=== PATIENT | female | born 1950 | race Two or more races ===

== ENCOUNTER 2017-07-15 19:16 | Emergency (ER) | payer MEDICARE ==
[~2017-07-15] VITALS: Ht 154.9 cm; Wt 49.9 kg
[~2017-07-15 19:16] MED LIST: HYDR-4663 PO; LEVO500T21 PO; LEVO75TA6 PO; LOVA10TA2 PO; PRAV20TA3 PO; PREMPRO; SYNTHROID
[2017-07-15] MEDS ORDERED: SODIUM CHLORIDE 0.9% 1,000 ML IV ONE (22:06)
[2017-07-15 23:09] LABS: Basophils # (auto) 0 uL; Basophils % (auto) 0.7 % (0.0-2.0); CONDITION Y; Eosinophils # (auto) 0.2 uL; Eosinophils % (auto) 2.8 % (0.0-7.0); Hematocrit 37.4 % (36.0-46.0); Hemoglobin 12.7 g/dL (12.2-16.2); Lymphocytes # (auto) 2.5 uL; Lymphocytes % (auto) 41.8 % (10.0-50.0); Mean Corpuscular Hemoglobin 31.4 pg (28.0-32.0); Mean Corpuscular Hgb Conc. 33.9 g/dL (32.0-36.0); Mean Corpuscular Volume 92.7 fL (80.0-100.0); Mean Platelet Volume 9.3 fL (6.9-10.8); Monocytes # (auto) 0.5 uL; Neutrophils # (auto) 2.8 uL; Neutrophils % (auto) 46.7 % (37.0-80.0); Platelet Count (auto) 253 10^3/uL (140-450); Red Cell Distribution Width 14.7 % (11.8-14.3); White Blood Cell 6.1 10^3/uL (4.4-10.8)
[2017-07-15 23:26] LABS: Albumin 3.7 g/dL (3.4-5.0); BUN/Creatinine Ratio 35.3; Potassium 3.6 mmol/L (3.5-5.1)
[2017-07-15 23:29] LABS: Bilirubin, Total 0.7 mg/dL (0.2-1.0); Total Protein 6.7 g/dL (6.4-8.2)
[2017-07-16 04:00] VITALS: BP 132/60
== END 2017-07-16 05:05 | disposition home or self-care (01) ==
LOC: ER 19:23
DX: K44.9 Diaphragmatic hernia without obstruction or gangrene (principal); K57.30 Diverticulosis of large intestine without perforation or abscess without bleeding; F41.9 Anxiety disorder, unspecified; J45.909 Unspecified asthma, uncomplicated; E78.5 Hyperlipidemia, unspecified; E07.89 Other specified disorders of thyroid; Z90.49 Acquired absence of other specified parts of digestive tract; Z91.041 Radiographic dye allergy status
CPT/HCPCS: 36415; 74176; 80053; 83690; 85025; 93005; 96360; 96361; 99285; J7030

== ENCOUNTER 2019-03-30 18:22 | Emergency (ER) | payer MEDICARE ==
[~2019-03-30] VITALS: Ht 157.5 cm; Wt 52.2 kg
[~2019-03-30 18:22] MED LIST changes: -HYDR-4663 PO; +HYDR-4683 PO
[2019-03-30 20:25] LABS: Urine Amorphous Crystal MOD /hpf (None Seen); Urine Bacteria FEW /hpf (None Seen); Urine Blood Negative /uL (Negative); Urine Mucus FEW (None Seen); Urine Specific Gravity 1.034 (1.001-1.035); Urine WBC 1 /hpf (0 - 5)
[2019-03-30 22:37] LABS: Basophils # (auto) 0 uL; Basophils % (auto) 0.4 % (0.0-2.0); Eosinophils # (auto) 0 uL; Eosinophils % (auto) 0.6 % (0.0-7.0); Hematocrit 40.5 % (36.0-46.0); Hemoglobin 13.7 g/dL (12.2-16.2); Lymphocytes # (auto) 2.1 uL; Lymphocytes % (auto) 28.8 % (10.0-50.0); Mean Corpuscular Hemoglobin 31.6 pg (28.0-32.0); Mean Corpuscular Hgb Conc. 33.9 g/dL (32.0-36.0); Mean Corpuscular Volume 93.2 fL (80.0-100.0); Monocytes # (auto) 0.5 uL; Monocytes % (auto) 6.2 % (0.0-12.0); Neutrophils # (auto) 4.7 uL; Platelet Count (auto) 257 10^3/uL (140-450); Red Blood Cells 4.34 10^6/uL (4.0-5.20); Red Cell Distribution Width 13.6 % (11.8-14.3); White Blood Cell 7.4 10^3/uL (4.4-10.8)
[2019-03-30 22:53] LABS: Alanine Aminotransferase 24 U/L (13-56); Albumin 3.9 g/dL (3.4-5.0); Anion Gap 8 (5-15); Aspartate Aminotransferase 10 U/L (15-37); BUN/Creatinine Ratio 44.8; Blood Urea Nitrogen 26 mg/dL (7-18); Carbon Dioxide 26 mmol/L (21-32); Chloride 109 mmol/L (98-107); GFR African American 133 mL/min; GFR Non-African American 110 mL/min; Glucose 112 mg/dL (74-106); Potassium 3.8 mmol/L (3.5-5.1); Sodium 143 mmol/L (136-145)
[2019-03-30 22:55] LABS: Calcium 8.8 mg/dL (8.5-10.1)
[2019-03-30 22:58] LABS: Alkaline Phosphatase 91 U/L (45-117); Bilirubin, Total 0.6 mg/dL (0.2-1.0); Total Protein 7.4 g/dL (6.4-8.2)
[2019-03-31] MEDS ORDERED: MORPHINE SULF INJ 2 MG/ML SYRINGE 1ML IV ONE (02:00)
[2019-03-31] MEDS ORDERED: ONDANSETRON HCL 4 MG/2 ML VIAL IV ONE (02:00)
[2019-03-31] MEDS ORDERED: LORazepam 0.5 MG TAB PO ONE (02:35)
[2019-03-31 05:57] VITALS: BP 105/60
== END 2019-03-31 06:26 | disposition home or self-care (01) ==
LOC: ER 18:22
DX: R41.3 Other amnesia (principal); F41.9 Anxiety disorder, unspecified; K58.9 Irritable bowel syndrome, unspecified; R42 Dizziness and giddiness; J45.909 Unspecified asthma, uncomplicated; E78.5 Hyperlipidemia, unspecified; Z86.39 Personal history of other endocrine, nutritional and metabolic disease; Z90.49 Acquired absence of other specified parts of digestive tract; Z79.899 Other long term (current) drug therapy
CPT/HCPCS: 36415; 71046; 74176; 80053; 81001; 84484; 85025; 93005; 94761; 96374; 96375; 99284; J2270; J2405

== ENCOUNTER 2019-05-24 15:03 | Emergency (ER) | payer MEDICARE ==
[~2019-05-24] VITALS: Ht 152.4 cm; Wt 49.0 kg
[~2019-05-24 15:03] MED LIST changes: -HYDR-4683 PO; +HYDR-4833 PO
[2019-05-24 15:56] VITALS: BP 137/67
[2019-05-24] MEDS ORDERED: SODIUM CHLORIDE 0.9% 1,000 ML IV ONE (16:09)
[2019-05-24] MEDS ORDERED: HYDROcodone-ACET 5/325MG TAB PO ONE (16:15)
[2019-05-24 16:19] LABS: Urine WBC None Seen /hpf (0 - 5)
[2019-05-24 16:51] LABS: Alanine Aminotransferase 23 U/L (13-56); Albumin 3.8 g/dL (3.4-5.0); Anion Gap 9 (5-15); Aspartate Aminotransferase 13 U/L (15-37); BUN/Creatinine Ratio 35.2; Blood Urea Nitrogen 19 mg/dL (7-18); Calcium 8.8 mg/dL (8.5-10.1); Carbon Dioxide 25 mmol/L (21-32); Chloride 113 mmol/L (98-107); GFR African American 144 mL/min; GFR Non-African American 119 mL/min; Glucose 88 mg/dL (74-106); Magnesium 2.5 mg/dL (1.6-2.6); Potassium 3.8 mmol/L (3.5-5.1); Sodium 147 mmol/L (136-145)
[2019-05-24 16:56] LABS: Alkaline Phosphatase 98 U/L (45-117); Bilirubin, Total 0.9 mg/dL (0.2-1.0); Total Protein 6.9 g/dL (6.4-8.2)
[2019-05-24 16:59] LABS: Urine Bacteria NONE SEEN /hpf (None Seen); Urine Blood Negative /uL (Negative); Urine Mucus FEW (None Seen); Urine Specific Gravity 1.026 (1.001-1.035)
[2019-05-24 17:03] LABS: Basophils # (auto) 0 uL; Basophils % (auto) 0.7 % (0.0-2.0); Eosinophils # (auto) 0.1 uL; Eosinophils % (auto) 2.4 % (0.0-7.0); Hematocrit 39.5 % (36.0-46.0); Hemoglobin 13.3 g/dL (12.2-16.2); Lymphocytes # (auto) 2.1 uL; Lymphocytes % (auto) 37.5 % (10.0-50.0); Mean Corpuscular Hgb Conc. 33.7 g/dL (32.0-36.0); Mean Corpuscular Volume 91.8 fL (80.0-100.0); Monocytes # (auto) 0.3 uL; Monocytes % (auto) 6.2 % (0.0-12.0); Neutrophils # (auto) 2.9 uL; Neutrophils % (auto) 53.2 % (37.0-80.0); Nucleated Red Blood Cells % 0.1 %; Platelet Count (auto) 227 10^3/uL (140-450); White Blood Cell 5.5 10^3/uL (4.4-10.8)
== END 2019-05-24 18:51 | disposition home or self-care (01) ==
LOC: ER 15:03
DX: F41.9 Anxiety disorder, unspecified (principal); E78.5 Hyperlipidemia, unspecified; J45.909 Unspecified asthma, uncomplicated; Z91.041 Radiographic dye allergy status
CPT/HCPCS: 36415; 70450; 71046; 80053; 81001; 83735; 84484; 85025; 93005; 96360; 99284; J7030

== ENCOUNTER → 2021-05-05 | Outpatient (CLI) | payer MEDICARE ==
[~2021-05-05] MED LIST changes: +LEVO100T8 PO; -LEVO500T21 PO; +LEVO500T31 PO; -LEVO75TA6 PO
== END | disposition home or self-care (01) ==
LOC: LAB 06:45
PROVIDERS: ATTEND Physician Assistant
DX: N39.0 Urinary tract infection, site not specified (principal)
CPT/HCPCS: 87086

== ENCOUNTER 2021-06-18 11:02 | Inpatient (IN) | payer MEDICARE ==
[~2021-06-18] VITALS: Ht 160 cm; Wt 51.5 kg
[2021-06-18 11:38] LABS: Basophils # (auto) 0 10 ^3/uL (0-0.2); Basophils % (auto) 0.8 % (0.0-2.0); Eosinophils # (auto) 0 10 ^3/uL (0-0.8); Eosinophils % (auto) 0.7 % (0.0-7.0); Hemoglobin 12.6 g/dL (12.2-16.2); Lymphocytes # (auto) 1.5 10 ^3/uL (0.4-5.4); Lymphocytes % (auto) 32.1 % (10.0-50.0); Mean Corpuscular Hemoglobin 32.3 pg (28.0-32.0); Mean Corpuscular Hgb Conc. 34.2 g/dL (32.0-36.0); Mean Corpuscular Volume 94.5 fL (80.0-100.0); Monocytes # (auto) 0.3 10 ^3/uL (0-1.3); Monocytes % (auto) 6.7 % (0.0-12.0); Neutrophils # (auto) 2.9 10 ^3/uL (1.6-8.6); Neutrophils % (auto) 59.7 % (37.0-80.0); Red Blood Cells 3.91 10^6/uL (4.0-5.20); White Blood Cell 4.8 10^3/uL (4.4-10.8)
[2021-06-18 11:57] LABS: Albumin 3.3 g/dL (3.4-5.0); Anion Gap 4 (5-15); Blood Urea Nitrogen 23 mg/dL (7-18); Carbon Dioxide 27 mmol/L (21-32); Chloride 112 mmol/L (98-107); Glucose 88 mg/dL (74-106); Lipase 116 U/L (73-393); Potassium 3.8 mmol/L (3.5-5.1); Sodium 143 mmol/L (136-145)
[2021-06-18 12:05] LABS: Alanine Aminotransferase 16 U/L (13-56); Alkaline Phosphatase 81 U/L (45-117); Aspartate Aminotransferase 15 U/L (15-37); BUN/Creatinine Ratio 37.7; Bilirubin, Total 0.9 mg/dL (0.2-1.0); GFR African American 124 mL/min; GFR Non-African American 103 mL/min; Total Protein 6.6 g/dL (6.4-8.2)
[2021-06-18 13:15] LABS: Urine Bacteria FEW /hpf (None Seen); Urine Blood Negative /uL (Negative); Urine Hyaline Cast FEW /lpf (0 - 2); Urine Mucus FEW (None Seen); Urine Specific Gravity 1.025 (1.001-1.035); Urine WBC 1 /hpf (0 - 5)
[2021-06-18] MEDS ORDERED: MORPHINE SULFATE INJECTION 2 MG/ML SYRG IV ONE (13:30)
[2021-06-18] MEDS ORDERED: ONDANSETRON HCL 4 MG/2 ML VIAL IV ONE (13:30)
[2021-06-18] MEDS ORDERED: MECL25TA18 PO (14:43)
[2021-06-18] MEDS ORDERED: DONE1TAB88 PO (14:43)
[2021-06-18] MEDS ORDERED: NITROGLYCERIN 0.4 MG SL TAB SL PRN ×2 (16:00→18:00)
[2021-06-18] MEDS ORDERED: MORPHINE SULFATE INJECTION 2 MG/ML SYRG IV PRN ×2 (16:00→18:00)
[2021-06-18] MEDS ORDERED: ALUM & MAG HYDROX-SIMETH LIQ(MAALOX) 30 ML PO PRN (18:00)
[2021-06-18] MEDS ORDERED: SODIUM CHLORIDE 0.9% 1,000 ML IV ONE (18:00)
[2021-06-18] MEDS ORDERED: METOCLOPRAMIDE HCL 5MG/ml INJ 2ml VIAL IV PRN (18:00)
[2021-06-18] MEDS ORDERED: MECLIZINE HCL 25 MG TAB PO PRN (18:00)
[2021-06-18] MEDS ORDERED: DOCUSATE SOD 100 MG CAP PO PRN (18:00)
[2021-06-18] MEDS ORDERED: CEFTRIAXONE SODIUM 2 GM in D5W 5% 50 ML IV ONE (18:00)
[2021-06-18] MEDS: SODIUM CHLORIDE 0.9% 1,000 ML IV SCH (18:45)
[2021-06-18 19:21] LABS: Magnesium 2.6 mg/dL (1.6-2.6)
[2021-06-18 19:28] LABS: Cholesterol 221 mg/dL (< 200); HDL Cholesterol 42 mg/dL (40-59); LDL Cholesterol 155 mg/dL (< 100); Phosphorus 3.8 mg/dL (2.5-4.90); Triglycerides 121 mg/dL (< 150)
[2021-06-18] MEDS: HYDROcodone-ACET 5/325MG TAB PO PRN (20:36)
[2021-06-18 20:40] VITALS: BP 132/57
[2021-06-18] MEDS: MORPHINE SULFATE INJECTION 2 MG/ML SYRG IV PRN (21:40)
[2021-06-18 22:00] VITALS: BP 132/57
[2021-06-18] MEDS: ATORVASTATIN 20 MG TAB PO SCH (22:47)
[2021-06-18] MEDS: DONEPEZIL HYDROCHLORIDE 5 MG TAB PO SCH (22:47)
[2021-06-18 22:51] LABS: Free T3 2.84 pg/mL (2.3-4.2); Free T4 (Free Thyroxine) 1.03 ng/dL (0.89-1.76)
[2021-06-19] MEDS: LORazepam 0.5 MG TAB PO PRN (01:51)
[2021-06-19] MEDS ORDERED: INFLUENZA QUAD 2020-2021 0.5 ML SYRG IM ONE (04:15)
[2021-06-19 05:00] VITALS: BP 128/60
[2021-06-19] MEDS ORDERED: LEVOTHYROXINE SODIUM 50 MCG TAB PO SCH (07:00)
[2021-06-19 09:00] VITALS: BP 122/56
[2021-06-19] MEDS ORDERED: LEVOTHYROXINE SODIUM 25 MCG TAB PO ONE (10:00)
[2021-06-19] MEDS: CEFTRIAXONE SODIUM 2 GM in D5W 5% 50 ML IV SCH (10:15)
[2021-06-19] MEDS: SERTRALINE HCL 50 MG TAB PO SCH (10:15)
[2021-06-19] MEDS: ENOXAPARIN SOD 40 MG/0.4 ML SYRINGE SC SCH (10:15)
[2021-06-19] MEDS: SODIUM CHLORIDE 0.9% 1,000 ML IV SCH (10:21)
[2021-06-19 10:49] LABS: Urine Bacteria NONE SEEN /hpf (None Seen); Urine Blood Negative /uL (Negative); Urine Hyaline Cast FEW /lpf (0 - 2); Urine Mucus FEW (None Seen); Urine Specific Gravity 1.013 (1.001-1.035); Urine WBC 2 /hpf (0 - 5)
[2021-06-19 11:32] LABS: Amphetamine Screen, Urine NEGATIVE (NEGATIVE); Barbiturate Scree,Urine NEGATIVE (NEGATIVE); Benzodiazephine Screen, Urine NEGATIVE (NEGATIVE); Cannabinoid Screen, Urine NEGATIVE (NEGATIVE); Cocaine Screen, Urine NEGATIVE (NEGATIVE); Opiate Scree,Urine POSITIVE (NEGATIVE); Phencyclidine Screen, Urine NEGATIVE (NEGATIVE)
[2021-06-19] MEDS: HYDROcodone-ACET 5/325MG TAB PO PRN ×2 (12:50→20:10)
[2021-06-19 12:57] VITALS: BP 129/55
[2021-06-19 16:42] VITALS: BP 101/45
[2021-06-19] MEDS: MORPHINE SULFATE INJECTION 2 MG/ML SYRG IV PRN (19:24)
[2021-06-19 22:00] VITALS: BP 119/54
[2021-06-19] MEDS: ATORVASTATIN 20 MG TAB PO SCH (22:29)
[2021-06-19] MEDS: DONEPEZIL HYDROCHLORIDE 5 MG TAB PO SCH (22:29)
[2021-06-20] MEDS: MORPHINE SULFATE INJECTION 2 MG/ML SYRG IV PRN ×5 (01:20→21:33)
[2021-06-20] MEDS: SODIUM CHLORIDE 0.9% 1,000 ML IV SCH (01:32)
[2021-06-20] MEDS: LORazepam 0.5 MG TAB PO PRN (04:15)
[2021-06-20 05:00] VITALS: BP 142/66
[2021-06-20 05:02] LABS: Basophils # (auto) 0 10 ^3/uL (0-0.2); Basophils % (auto) 0.7 % (0.0-2.0); Eosinophils # (auto) 0.1 10 ^3/uL (0-0.8); Eosinophils % (auto) 2.7 % (0.0-7.0); Hematocrit 33.8 % (36.0-46.0); Hemoglobin 11.7 g/dL (12.2-16.2); Lymphocytes # (auto) 1.8 10 ^3/uL (0.4-5.4); Lymphocytes % (auto) 36.4 % (10.0-50.0); Mean Corpuscular Hemoglobin 32.7 pg (28.0-32.0); Mean Corpuscular Hgb Conc. 34.5 g/dL (32.0-36.0); Mean Corpuscular Volume 94.6 fL (80.0-100.0); Monocytes # (auto) 0.4 10 ^3/uL (0-1.3); Monocytes % (auto) 7.8 % (0.0-12.0); Neutrophils # (auto) 2.6 10 ^3/uL (1.6-8.6); Neutrophils % (auto) 52.4 % (37.0-80.0); Red Blood Cells 3.58 10^6/uL (4.0-5.20); Red Cell Distribution Width 14.5 % (11.8-14.3)
[2021-06-20 05:34] LABS: Calcium 8.3 mg/dL (8.5-10.1); Potassium 3.4 mmol/L (3.5-5.1)
[2021-06-20 05:38] LABS: BUN/Creatinine Ratio 29.5
[2021-06-20] MEDS: LEVOTHYROXINE SODIUM 25 MCG TAB PO SCH (06:44)
[2021-06-20] MEDS: LEVOTHYROXINE SODIUM 100 MCG TAB PO SCH (06:44)
[2021-06-20 09:00] VITALS: BP 130/58
[2021-06-20] MEDS: SERTRALINE HCL 50 MG TAB PO SCH (09:09)
[2021-06-20] MEDS: ENOXAPARIN SOD 40 MG/0.4 ML SYRINGE SC SCH (09:09)
[2021-06-20] MEDS: CEFTRIAXONE SODIUM 2 GM in D5W 5% 50 ML IV SCH (09:09)
[2021-06-20] MEDS ORDERED: POTASSIUM EFFERVESENT TAB 25 MEQ PO ONE (09:30)
[2021-06-20 13:00] VITALS: BP 129/70
[2021-06-20 16:03] VITALS: BP 126/72
[2021-06-20] MEDS: ATORVASTATIN 20 MG TAB PO SCH (21:33)
[2021-06-20] MEDS: DONEPEZIL HYDROCHLORIDE 5 MG TAB PO SCH (21:33)
[2021-06-20 22:00] VITALS: BP 120/57
[2021-06-21] MEDS: HYDROcodone-ACET 5/325MG TAB PO PRN (02:37)
[2021-06-21] MEDS: LORazepam 0.5 MG TAB PO PRN ×2 (02:37→22:35)
[2021-06-21 04:59] LABS: Basophils # (auto) 0.1 10 ^3/uL (0-0.2); Eosinophils # (auto) 0.2 10 ^3/uL (0-0.8); Eosinophils % (auto) 3.3 % (0.0-7.0); Hematocrit 32.6 % (36.0-46.0); Hemoglobin 11.2 g/dL (12.2-16.2); Lymphocytes # (auto) 1.8 10 ^3/uL (0.4-5.4); Lymphocytes % (auto) 34.2 % (10.0-50.0); Mean Corpuscular Hemoglobin 32.5 pg (28.0-32.0); Mean Corpuscular Hgb Conc. 34.3 g/dL (32.0-36.0); Mean Corpuscular Volume 94.6 fL (80.0-100.0); Monocytes # (auto) 0.4 10 ^3/uL (0-1.3); Monocytes % (auto) 8.2 % (0.0-12.0); Neutrophils # (auto) 2.8 10 ^3/uL (1.6-8.6); Neutrophils % (auto) 53.3 % (37.0-80.0); Nucleated Red Blood Cells % 0.1 %; Red Blood Cells 3.45 10^6/uL (4.0-5.20); Red Cell Distribution Width 14.3 % (11.8-14.3); White Blood Cell 5.3 10^3/uL (4.4-10.8)
[2021-06-21 05:13] VITALS: BP 136/72
[2021-06-21 05:13] LABS: INR 1.03 (0.9-1.15); Partial Thromboplastin Time 24.4 sec (23.6-33.0)
[2021-06-21 05:44] LABS: Potassium 3.5 mmol/L (3.5-5.1)
[2021-06-21 05:50] LABS: Albumin 2.8 g/dL (3.4-5.0); BUN/Creatinine Ratio 20.4; Bilirubin, Total 0.8 mg/dL (0.2-1.0); Total Protein 5.5 g/dL (6.4-8.2)
[2021-06-21] MEDS: SODIUM CHLORIDE 0.9% 1,000 ML IV SCH ×2 (06:01→12:40)
[2021-06-21] MEDS: LEVOTHYROXINE SODIUM 25 MCG TAB PO SCH (07:00)
[2021-06-21] MEDS: LEVOTHYROXINE SODIUM 100 MCG TAB PO SCH (07:00)
[2021-06-21 09:00] VITALS: BP 139/63
[2021-06-21] MEDS: CEFTRIAXONE SODIUM 2 GM in D5W 5% 50 ML IV SCH (09:26)
[2021-06-21] MEDS: SERTRALINE HCL 50 MG TAB PO SCH (09:26)
[2021-06-21] MEDS: ENOXAPARIN SOD 40 MG/0.4 ML SYRINGE SC SCH (09:27)
[2021-06-21] MEDS: MORPHINE SULFATE INJECTION 2 MG/ML SYRG IV PRN ×3 (09:56→20:30)
[2021-06-21 12:00] VITALS: BP 146/73
[2021-06-21 17:00] VITALS: BP 140/53
[2021-06-21 22:01] VITALS: BP 132/65
[2021-06-21] MEDS: ATORVASTATIN 20 MG TAB PO SCH (22:35)
[2021-06-21] MEDS: DONEPEZIL HYDROCHLORIDE 5 MG TAB PO SCH (22:35)
[2021-06-22] MEDS: SODIUM CHLORIDE 0.9% 1,000 ML IV SCH (04:55)
[2021-06-22 05:00] VITALS: BP 130/79
[2021-06-22 05:11] LABS: BUN/Creatinine Ratio 19.2; Calcium 8.2 mg/dL (8.5-10.1); Potassium 3.4 mmol/L (3.5-5.1)
[2021-06-22] MEDS: LEVOTHYROXINE SODIUM 25 MCG TAB PO SCH (06:52)
[2021-06-22] MEDS: LEVOTHYROXINE SODIUM 100 MCG TAB PO SCH (06:52)
[2021-06-22] MEDS ORDERED: LIDOCAINE 2%HCL (LOCAL ANESTH.) INJ 20ML MDV ONE (07:17)
[2021-06-22] MEDS ORDERED: VANCOMYCIN 1GM/250ML 250 ML IV ONE (07:37)
[2021-06-22] MEDS ORDERED: fentaNYL CITRATE 100 MCG/2 ML VL ONE (08:01)
[2021-06-22] MEDS ORDERED: MIDAZOLAM HCL 2MG/2ML 2ml VIAL (1mg/ml) ONE (08:02)
[2021-06-22] MEDS ORDERED: VANCOMYCIN HCL 1000 MG VL ONE (08:07)
[2021-06-22] MEDS ORDERED: diphenhdrAMINE HCL 50 MG/1 ML VL ONE (08:09)
[2021-06-22] MEDS ORDERED: methylPREDNISolone SOD SUCC 125 MG/2 ML VL ONE (08:09)
[2021-06-22] MEDS ORDERED: FAMOTIDINE (10MG/ML) 2ML VL IV ONE (08:10)
[2021-06-22 08:51] VITALS: BP 126/96
[2021-06-22] MEDS: SERTRALINE HCL 50 MG TAB PO SCH (10:00)
[2021-06-22] MEDS ORDERED: POTASSIUM CHL 20 Meq TABLET PO ONE (10:00)
[2021-06-22] MEDS: HYDROcodone-ACET 5/325MG TAB PO PRN ×2 (10:32→20:22)
[2021-06-22 12:32] VITALS: BP 135/72
[2021-06-22] MEDS: MORPHINE SULFATE INJECTION 2 MG/ML SYRG IV PRN (14:34)
[2021-06-22 16:53] VITALS: BP 130/70
[2021-06-22] MEDS: PHENAZOPYRIDINE HCL 100 MG TAB PO SCH (17:54)
[2021-06-22 18:23] LABS: Urine Bacteria NONE SEEN /hpf (None Seen); Urine Blood Negative /uL (Negative); Urine Mucus FEW (None Seen); Urine Specific Gravity 1.018 (1.001-1.035); Urine WBC <1 /hpf (0 - 5)
[2021-06-22] MEDS: DONEPEZIL HYDROCHLORIDE 5 MG TAB PO SCH (21:43)
[2021-06-22] MEDS: ATORVASTATIN 20 MG TAB PO SCH (21:43)
[2021-06-22] MEDS: VANCOMYCIN 1GM/250ML 250 ML IV SCH (21:50)
[2021-06-22 22:00] VITALS: BP 140/85
[2021-06-23] MEDS: LORazepam 0.5 MG TAB PO PRN (01:04)
[2021-06-23] MEDS: SODIUM CHLORIDE 0.9% 1,000 ML IV SCH (03:25)
[2021-06-23 05:00] VITALS: BP 133/70
[2021-06-23 05:40] LABS: Basophils # (auto) 0 10 ^3/uL (0-0.2); Basophils % (auto) 0.4 % (0.0-2.0); Eosinophils # (auto) 0.1 10 ^3/uL (0-0.8); Eosinophils % (auto) 1.6 % (0.0-7.0); Hemoglobin 11.7 g/dL (12.2-16.2); Lymphocytes # (auto) 1.3 10 ^3/uL (0.4-5.4); Lymphocytes % (auto) 17.8 % (10.0-50.0); Mean Corpuscular Hemoglobin 33.2 pg (28.0-32.0); Mean Corpuscular Hgb Conc. 35.4 g/dL (32.0-36.0); Mean Corpuscular Volume 93.8 fL (80.0-100.0); Monocytes # (auto) 0.6 10 ^3/uL (0-1.3); Neutrophils # (auto) 5.1 10 ^3/uL (1.6-8.6); Neutrophils % (auto) 72.2 % (37.0-80.0); Red Blood Cells 3.52 10^6/uL (4.0-5.20); Red Cell Distribution Width 14.9 % (11.8-14.3)
[2021-06-23 06:22] LABS: Calcium 8.2 mg/dL (8.5-10.1); Potassium 3.3 mmol/L (3.5-5.1)
[2021-06-23] MEDS: LEVOTHYROXINE SODIUM 100 MCG TAB PO SCH (06:32)
[2021-06-23] MEDS: LEVOTHYROXINE SODIUM 25 MCG TAB PO SCH (06:32)
[2021-06-23] MEDS: SERTRALINE HCL 50 MG TAB PO SCH (08:55)
[2021-06-23] MEDS: PHENAZOPYRIDINE HCL 100 MG TAB PO SCH ×2 (08:55→12:00)
[2021-06-23] MEDS: VANCOMYCIN 1GM/250ML 250 ML IV SCH (08:56)
[2021-06-23 09:00] VITALS: BP 121/59
[2021-06-23] MEDS ORDERED: POTASSIUM CHL 20 Meq TABLET PO ONE (10:00)
[2021-06-23] MEDS: MORPHINE SULFATE INJECTION 2 MG/ML SYRG IV PRN (10:38)
[2021-06-23] MEDS: HYDROcodone-ACET 5/325MG TAB PO PRN (11:56)
[2021-06-23 13:00] VITALS: BP 133/59
[2021-06-23 14:27] VITALS: BP 133/59
[2021-06-23 17:00] VITALS: BP 125/60
== END 2021-06-23 18:00 | disposition home or self-care (01) | DRG 243 ==
LOC: EDBD 11:02 → EDUNIT# 11:02 → ER 11:02 → TELE 15:51 → TELE-CENTR 20:44
PROVIDERS: ADMIT Hospitalist; ATTEND Internal Medicine
PROC: 0JH606Z Insertion of Pacemaker, Dual Chamber into Chest Subcutaneous Tissue and Fascia, Open Approach (ICD-10-PCS; principal; 2021-06-22)
PROC: 02H63JZ Insertion of Pacemaker Lead into Right Atrium, Percutaneous Approach (ICD-10-PCS; 2021-06-22)
PROC: 02HK3JZ Insertion of Pacemaker Lead into Right Ventricle, Percutaneous Approach (ICD-10-PCS; 2021-06-22)
DX: I49.5 Sick sinus syndrome (principal); I50.32 Chronic diastolic (congestive) heart failure; N39.0 Urinary tract infection, site not specified; E44.1 Mild protein-calorie malnutrition; Z20.822 Contact with and (suspected) exposure to COVID-19; E03.9 Hypothyroidism, unspecified; E87.6 Hypokalemia; I27.21 Secondary pulmonary arterial hypertension; F03.90 Unspecified dementia, unspecified severity, without behavioral disturbance, psychotic disturbance, mood disturbance, and anxiety; F32.9 Major depressive disorder, single episode, unspecified; M19.90 Unspecified osteoarthritis, unspecified site; E78.5 Hyperlipidemia, unspecified; F41.9 Anxiety disorder, unspecified; K57.30 Diverticulosis of large intestine without perforation or abscess without bleeding; N76.0 Acute vaginitis; Z82.49 Family history of ischemic heart disease and other diseases of the circulatory system; Z83.3 Family history of diabetes mellitus; Z86.73 Personal history of transient ischemic attack (TIA), and cerebral infarction without residual deficits; Z87.440 Personal history of urinary (tract) infections; Z90.49 Acquired absence of other specified parts of digestive tract; Z79.2 Long term (current) use of antibiotics; Z68.20 Body mass index [BMI] 20.0-20.9, adult; Z98.51 Tubal ligation status; Z91.041 Radiographic dye allergy status; Z79.899 Other long term (current) drug therapy; I11.0 Hypertensive heart disease with heart failure
CPT/HCPCS: 33208; 36415; 71045; 74176; 80048; 80053; 80061; 80307; 81001; 83036; 83690; 83735; 83880; 84100; 84439; 84443; 84481; 84484; 85025; 85610; 85730; 86850; 86900; 86901; 87040; 87081; 87086; 87426; 93005; 96365; 96375; 99152; 99153; C1785; G0378; J0696; J2250; J2405; J3490; J7060

== ENCOUNTER 2021-07-04 15:00 | Emergency (ER) | payer MEDICARE ==
[~2021-07-04] VITALS: Ht 157.5 cm; Wt 45.4 kg
[~2021-07-04 15:00] MED LIST changes: +DONE1TAB88 PO; -HYDR-4833 PO; -LEVO100T8 PO; -LOVA10TA2 PO; +MECL25TA18 PO; -PRAV20TA3 PO; -PREMPRO; -SYNTHROID
[2021-07-04 15:07] VITALS: BP 122/67
[2021-07-04 16:30] LABS: Basophils # (auto) 0 10 ^3/uL (0-0.2); Basophils % (auto) 0.6 % (0.0-2.0); Eosinophils # (auto) 0.2 10 ^3/uL (0-0.8); Eosinophils % (auto) 3.7 % (0.0-7.0); Hematocrit 36.3 % (36.0-46.0); Hemoglobin 11.8 g/dL (12.2-16.2); Lymphocytes # (auto) 1.8 10 ^3/uL (0.4-5.4); Lymphocytes % (auto) 31.2 % (10.0-50.0); Mean Corpuscular Hgb Conc. 32.6 g/dL (32.0-36.0); Mean Corpuscular Volume 98.1 fL (80.0-100.0); Monocytes # (auto) 0.4 10 ^3/uL (0-1.3); Monocytes % (auto) 6.8 % (0.0-12.0); Neutrophils # (auto) 3.3 10 ^3/uL (1.6-8.6); Neutrophils % (auto) 57.7 % (37.0-80.0); Red Cell Distribution Width 14.6 % (11.8-14.3); White Blood Cell 5.8 10^3/uL (4.4-10.8)
[2021-07-04 16:45] LABS: Albumin 3.5 g/dL (3.4-5.0); Anion Gap 6 (5-15); Blood Urea Nitrogen 21 mg/dL (7-18); Calcium 9.1 mg/dL (8.5-10.1); Carbon Dioxide 22 mmol/L (21-32); Chloride 114 mmol/L (98-107); Glucose 83 mg/dL (74-106); Potassium 4.2 mmol/L (3.5-5.1); Sodium 142 mmol/L (136-145)
[2021-07-04 16:47] LABS: BUN/Creatinine Ratio 25.3; GFR African American 87 mL/min; GFR Non-African American 72 mL/min
[2021-07-04 16:50] LABS: Alanine Aminotransferase 18 U/L (13-56); Alkaline Phosphatase 101 U/L (45-117); Aspartate Aminotransferase 16 U/L (15-37); Bilirubin, Total 1.1 mg/dL (0.2-1.0); Total Protein 7.3 g/dL (6.4-8.2)
[2021-07-05 01:41] LABS: Urine Bacteria FEW /hpf (None Seen); Urine Blood Negative /uL (Negative); Urine Hyaline Cast FEW /lpf (0 - 2); Urine Mucus FEW (None Seen); Urine Specific Gravity 1.025 (1.001-1.035); Urine WBC 15 /hpf (0 - 5)
== END 2021-07-05 03:02 | disposition left against medical advice (07) ==
LOC: ER 15:00
DX: R30.9 Painful micturition, unspecified (principal); Z53.21 Procedure and treatment not carried out due to patient leaving prior to being seen by health care provider
CPT/HCPCS: 36415; 80053; 81001; 84484; 85025; 93005

== ENCOUNTER 2025-01-30 20:50 | Inpatient (IN) | payer MEDICARE ==
[~2025-01-30] VITALS: Ht 160 cm; Wt 48.2 kg
[~2025-01-30 20:50] MED LIST changes: +MECL-90 PO; -MECL25TA18 PO
--- NOTE | 2025-01-30 21:07 | ED.PDOC ---
History of Present Illness HPI Comments 75 y/o F, with a history of CHF, CVA, Dementia, HLD, HTN, Hypothyroidism, UTI's, Cholecystectomy, , Tubal ligation, and Pacemaker, is BIBA with relative for c/o suprapubic and bilateral lower quadrants abdominal pain, diarrhea, and dysuria, today. Per EMS report, patient is stated to have additional unprovoked onset of abdominal pain, with diarrhea, this evening, after finishing her antibiotic course for a UTI she was diagnosed with a week ago, yesterday. She describes pain as burning in quality and rates it a 10/10, starting just at her suprapubic region and radiating to bilateral lower quadrants. Patient was stated to have been given 1g Tylenol IV and 4mg Zofran ODT en route. Patient has no reported nausea, vomiting, hematuria, fever, chills, or other associated symptoms at this time. Time Seen by MD: 20:55 Primary Care Provider: UNKNOWN Reviewed Notes: Nurses Notes, [employer]er Notes, Medications, Allergies Allergies: Coded Allergies: Iodinated Diagnostic Agents (Verified Allergy, Mild, 12/12/16) Home Meds Active Scripts Levofloxacin (Levaquin) 500 Mg Tab, 500 MG PO DAILY, #7 TAB Prov:RADHA QUIROS MD 12/17/16 Reported Medications Meclizine Hcl (Meclizine Hcl) 25 Mg Tab, 25 MG PO BIDP PRN for DIZZINESS for 30 Days, MG 06/18/21 Donepezil Hydrochloride (DONEPEZIL HCL) 10 Mg Tab, 10 MG PO DAILY, MG 06/18/21 Information Source: Patient, Emergency Med Personnel Mode of Arrival: EMS Severity: Moderate Timing: Hours Duration: Since onset Prehospital treatment: 12 Lead EKG, Air Tester, Pain Meds (1g Tylenol IV ), Other (Zofran 4mg ODT) Past Medical History PAST MEDICAL HISTORY: Anxiety, CHF, CVA, Dementia, High Lipids, HTN, Thyroid (hypothyroidism ), UTI'S Past Medical History (Other): bradycardia s/p pacemaker Surgical History: Cholecystectomy, , Pacemaker, Tubal Ligation 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: No Pertinent 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 Family History Family History: Family hx of DM, Family hx of HTN Social History Smoker: Non-Smoker Alcohol: Denies ETOH Use Drugs: Denies Drug Use Lives In: Home All Other Systems: Reviewed and Negative (Comprehensive systems review obtained and negative except for what is stated in the HPI.) Physical Exam General Appearance: Mild Distress, Thin HEENT: Normal ENT Inspection, Pharynx Normal, TMs Normal Neck: Full Range of Motion, Non-Tender, Normal, Normal Inspection Respiratory: Chest Non-Tender, Lungs Clear, No Accessory Muscle Use, No Respiratory Distress, Normal Breath Sounds Cardiovascular: No Edema, No JVD, No Murmur, No Gallop, Normal Peripheral Pulses, Regular Rate/Rhythm Breast Exam: Deferred Gastrointestinal: LLQ (tenderness), No Organomegaly, No Pulsatile Mass, Normal Bowel Sounds, RLQ (tenderness), Soft, Tenderness (tenderness to bilateral lower quadrants), Other (no peritoneal signs) Genitalia: Deferred Pelvic: Deferred Rectal: Deferred Extremities: No calf tenderness, Normal capillary refill, Normal inspection, Normal range of motion, Non-tender, No pedal edema Musculoskeletal : Apperance: Normal Neurologic: Alert, 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 Was a procedure done?: No EKG EKG : Pulse Rate (adult): 65 Mc[place]ides: Normal Cardiac Rhythm: NSR Block: None Hypertrophy: None ST: Normal Differential Dx Considerations may include: UTI, PID, viral syndrome, diverticulitis, among others X-Ray, Labs, Meds, VS Vital Signs Date Time Temp Pulse Resp B/P (MAP) Pulse Ox O2 Delivery O2 Flow Rate FiO2 01/30/25 21:07 65 01/30/25 21:02 97.7 70 16 134/60 (84) 98 97.7 01/30/25 20:50 65 Lab Test 01/30/25 21:05 Range/Units White Blood Count 6.4 4.4-10.8 10^3/uL Red Blood Count 4.01 4.0-5.20 10^6/uL Hemoglobin 12.5 12.2-16.2 g/dL Hematocrit 37.6 36.0-46.0 % Mean Corpuscular Volume 93.6 80.0-100.0 fL Mean Corpuscular Hemoglobin 31.2 28.0-32.0 pg Mean Corpuscular Hemoglobin Concent 33.4 32.0-36.0 g/dL Red Cell Distribution Width 15.1 H 11.8-14.3 % Platelet Count 246 140-450 10^3/uL Mean Platelet Volume 8.9 6.9-10.8 fL Neutrophils (%) (Auto) 66.4 37.0-80.0 % Lymphocytes (%) (Auto) 25.7 10.0-50.0 % Monocytes (%) (Auto) 5.7 0.0-12.0 % Eosinophils (%) (Auto) 1.7 0.0-7.0 % Basophils (%) (Auto) 0.5 0.0-2.0 % Neutrophils # (Auto) 4.2 1.6-8.6 10 ^3/uL Lymphocytes # (Auto) 1.6 0.4-5.4 10 ^3/uL Monocytes # (Auto) 0.4 0-1.3 10 ^3/uL Eosinophils # (Auto) 0.1 0-0.8 10 ^3/uL Basophils # (Auto) 0 0-0.2 10 ^3/uL Nucleated Red Blood Cells 0.1 % Sodium Level 144 136-145 mmol/L Potassium Level 4.0 3.5-5.1 mmol/L Chloride Level 111 H 98-107 mmol/L Carbon Dioxide Level 26 20-31 mmol/L Anion Gap 7 5-15 Blood Urea Nitrogen 25 H 9-23 mg/dL Creatinine 0.68 0.550-1.02 mg/dL Glomerular Filtration Rate Calc 91 >90 mL/min BUN/Creatinine Ratio 36.8 H 10.0-20.0 Serum Glucose 113 H 74-106 mg/dL Calcium Level 9.7 8.7-10.4 mg/dL Total Bilirubin 0.7 0.2-1.0 mg/dL Aspartate Amino Transferase (AST) 20 13-40 U/L Alanine Aminotransferase (ALT) 29 7-40 U/L Alkaline Phosphatase 100 46-116 U/L Total Protein 6.5 5.7-8.2 g/dL Albumin 4.2 3.2-4.8 g/dL Lipase 52 12-53 U/L Time of 1ST Reevaluation: 21:25 Reevaluation 1ST: Unchanged Patient Education/Counseling: Diagnosis, Treatment Family Education/Counseling: Diagnosis, Treatment Additional Information Previous medical encounters reviewed: June 18, 2021 encounter for symptomatic sinus bradycardia The following tests were ordered, and results were reviewed by me: CT abdomen/pelvis w/IV contrast, UA, lipase, CMP, CBC, EKG Additional Information was gathered from interviewing the following independent historians: EMS I reviewed and agreed with the following test results read by other providers: CT abdomen/pelvis w/IV contrast I discussed treatment and results with medical personnel and: Patient, family Sepsis focused exam: focus exam completed (In the initial resuscitation at least 30 mL/kg of IV crystalloid fluid was NOT given within the first 3 hr due to concerns of fluid overload), time: (2329) Sepsis Sepsis Reasesment Focused Exam Sepsis focused exam: focus exam completed (In the initial resuscitation at least 30 mL/kg of IV crystalloid fluid was NOT given within the first 3 hr due to concerns of fluid overload), time: (2329) Departure 1 Departure Time of Disposition: :22 Impression: Primary Impression: Intractable abdominal pain Additional Impression: Recurrent urinary tract infection Disposition: ADMITTED INPATIENT Admit to: Med Surg Condition: Guarded Discharged With: Self Comments Lower Abdominal Pain in Elderly Female with History of Recurrent UTIs Chief Complaint: Lower abdominal pain History of Present Illness: 75-year-old female presents to the Emergency Department with complaints of lower abdominal pain for the past one day, as reported by family. The patient has a significant history of recurrent urinary tract infections, along with multiple comorbidities including dementia, previous strokes, hypertension, hyperlipidemia, and hypothyroidism. She also has a pacemaker in place. Review of Systems: Limited due to patient's dementia Positive for lower abdominal pain Otherwise unable to obtain due to patient's cognitive status Medications: Not specified in current documentation Allergies: Not specified in current documentation Past Medical History: 1. Dementia 2. Recurrent urinary tract infections 3. Previous strokes 4. Hypertension 5. Hyperlipidemia 6. Hypothyroidism 7. Cardiac history requiring pacemaker Past Surgical History: 1. Cholecystectomy 2. section 3. Pacemaker placement Lab Results: CBC: Within normal limits Chemistry Panel: - BUN: Elevated at 25 - Creatinine: Normal at 0.68 Imaging and Other Relevant Results: CT Abdomen/Pelvis: No acute pathology identified Medical Decision Making: Summary Statement: 75-year-old female with history of dementia and recurrent UTIs presenting with lower abdominal pain, found to have elevated BUN but o therwise normal labs and imaging. Problem List: 1. Lower abdominal pain 2. Possible UTI 3. Elevated BUN 4. Multiple chronic medical conditions Differential Diagnosis: 1. Urinary tract infection 2. Abdominal pain of unclear etiology 3. Dehydration 4. Intra-abdominal pathology ED Course: Patient received IV fluids and IV Rocephin. Despite normal CT imaging, patient requires admission for supportive care and further workup of intractable abdominal pain and recurrent UTIs. Assessment and Plan: 1. Lower Abdominal Pain/Possible UTI: - Initiated empiric treatment with IV Rocephin - Will continue IV antibiotics as inpatient - Further workup of recurrent UTIs needed 2. Volume Status: - Initiated IV fluid hydration - Monitor input/output 3. Disposition: - Admit to medical floor for continued workup and management - Will require supportive care given cognitive status Billing Information: ICD-10: R10.30 - Lower abdominal pain, unspecified ICD-10: N39.0 - Urinary tract infection, site not specified ICD-10: F03.90 - Unspecified dementia without behavioral disturbance Critical Care Note Critical Care Time?: No Stability Stability form required: No Heart Score Heart Score: Heart Score Response (Comments) Value History N/A 0 EKG N/A 0 Age N/A 0 Risk Factors N/A 0 Troponin N/A 0 Total 0 I personally scribed for JADEN HAN MD ([email or web address]) on 01/30/25 at 21:07. Electronically submitted by Charles Braxton ([email or web address]). JADEN HAN MD Jan 30, 2025 21:07
[2025-01-30 21:14] LABS: Basophils # (auto) 0 10 ^3/uL (0-0.2); Basophils % (auto) 0.5 % (0.0-2.0); Eosinophils # (auto) 0.1 10 ^3/uL (0-0.8); Eosinophils % (auto) 1.7 % (0.0-7.0); Hematocrit 37.6 % (36.0-46.0); Hemoglobin 12.5 g/dL (12.2-16.2); Lymphocytes # (auto) 1.6 10 ^3/uL (0.4-5.4); Lymphocytes % (auto) 25.7 % (10.0-50.0); Mean Corpuscular Hemoglobin 31.2 pg (28.0-32.0); Mean Corpuscular Hgb Conc. 33.4 g/dL (32.0-36.0); Mean Corpuscular Volume 93.6 fL (80.0-100.0); Monocytes # (auto) 0.4 10 ^3/uL (0-1.3); Monocytes % (auto) 5.7 % (0.0-12.0); Neutrophils # (auto) 4.2 10 ^3/uL (1.6-8.6); Neutrophils % (auto) 66.4 % (37.0-80.0); Nucleated Red Blood Cells % 0.1 %; Platelet Count (auto) 246 10^3/uL (140-450); Red Blood Cells 4.01 10^6/uL (4.0-5.20); Red Cell Distribution Width 15.1 % (11.8-14.3); White Blood Cell 6.4 10^3/uL (4.4-10.8)
[2025-01-30 21:31] LABS: Alanine Aminotransferase 29 U/L (7-40); Alkaline Phosphatase 100 U/L (46-116); Anion Gap 7 (5-15); Aspartate Aminotransferase 20 U/L (13-40); BUN/Creatinine Ratio 36.8 (10.0-20.0); Calcium 9.7 mg/dL (8.7-10.4); Carbon Dioxide 26 mmol/L (20-31); Lipase 52 U/L (12-53); Sodium 144 mmol/L (136-145); Total Protein 6.5 g/dL (5.7-8.2)
[2025-01-30 21:32] LABS: Albumin 4.2 g/dL (3.2-4.8); Bilirubin, Total 0.7 mg/dL (0.2-1.0)
[2025-01-30 21:39] LABS: Blood Urea Nitrogen 25 mg/dL (9-23); Chloride 111 mmol/L (98-107); Glucose 113 mg/dL (74-106)
--- NOTE | 2025-01-30 21:42 | ECG ---
[facility] Test Date: 2025-01-30 Test Time: 20:50:11 Pat Name: JAZLYN FRANCIS Department: ED Room: 0216 Gender: F Can Stacker: ER : 1950 Requested By: JADEN HAN Order Number: [id number] Reading MD: Payam Lopez Measurements Intervals [place] Rate: 65 P: 36 TN: 175 QRS: 5 QRSD: 77 T: 58 QT: 415 QTc: 432 Interpretive Statements Sinus rhythm Anteroseptal infarct, age indeterminate Electronically Signed On 01-31-2025 18:50:54 PDT by Payam Lopez Please click the below link to view image of tracing.
[2025-01-30] MEDS: IOHEXOL 300 MG/ML 100ML BOTTLE IJ ONE (23:41)
--- NOTE | 2025-01-31 00:46 | DVH ---
Exam: CT CT AB PEL WITH IV CON ONLY History: BLQ pain COMPARISON: None Technique: Multidetector spiral CT of the abdomen and pelvis was performed from lung bases to pubic s ymphysis. Intravenous contrast was administered during this examination. Portal venous imaging was o btained. Axial, coronal and sagittal multiplanar reformats were performed by the technologist on a [employer] workstation. Radiation Dose : 1. Abdomen/Pelvis: CTDIvol 5.24 mGy, DLP 266.33 mGy*cm. CONTRAST: Type of contrast: Omnipaque 300 Contrast injected: 100 ml Contrast ingested: None Findings: Lung Bases: No acute or significant lung base finding. Normal heart size. No pleural or pericardial effusion. Cardiac pacing leads noted. Liver: The liver is normal in size. No focal lesions. Normal hepatic vascular enhancement. Gallbladder and Biliary Tree: The gallbladder is surgically absent. Spleen: Unremarkable Pancreas: The pancreas is normal in appearance without focal lesions or abnormal enhancement. Adrenal Glands: Unremarkable Kidneys: No hydronephrosis. Benign-appearing bilateral subcentimeter cysts. Bladder: Unremarkable Bowel: The stomach is grossly normal in appearance. Small bowel and colon are normal in caliber and d istribution. Colonic diverticular disease of the descending and sigmoid colon without evidence of acu te diverticulitis. The appendix is not visualized; however, no secondary findings of acute appendicit is identified. Ascites: Absent Lymphadenopathy: No mesenteric, retroperitoneal or periportal lymphadenopathy. Abdominal Wall and Mesentery: Unremarkable. Vasculature: The visualized abdominal aorta is normal in size and caliber. Atherosclerotic vascular c alcifications are noted. Abdominal and pelvic vessels demonstrate normal enhancement. Pelvic Organs: Unremarkable Musculoskeletal: No aggressive focal bony lesions, acute fractures or dislocation. IMPRESSION: 1. No acute abdominal or pelvic finding. Radiation optimization: All CT scans at this facility use at least one of these dose optimization iesha hniques: automated exposure control mA and/or kV adjustment per patient size (includes targeted exam s where dose is matched to clinical indication) or iterative reconstruction.
[2025-01-31 02:15] VITALS: PULSE 78; RESP 17; O2SAT 98
[2025-01-31] MEDS: SODIUM CHLORIDE 0.9% 1,000 ML IVB ONE (02:16)
[2025-01-31] MEDS: cefTRIAXone 1GM/50ML D5W 50 ML IV ONE (02:16)
[2025-01-31] MEDS: ONDANSETRON HCL 4 MG/2 ML VIAL IV ONE (02:17)
[2025-01-31] MEDS: MORPHINE SULFATE 4 MG/ML SYR/VIAL IV ONE (02:18)
[2025-01-31 04:39] LABS: Urine Bacteria None Seen /hpf (None Seen)
[2025-01-31 05:16] LABS: Urine Blood Negative /uL (Negative); Urine Clarity Clear (Clear); Urine Color Yellow (Yellow); Urine Protein, UAD 1+ (Negative); Urine Squamous Epithelial Cell FEW /hpf (<5); Urine Urobilinogen Normal (Negative); Urine WBC 51 /HPF (0-5)
[2025-01-31 05:20] LABS: Urine Specific Gravity > 1.050 (1.001-1.035)
[2025-01-31] MEDS ORDERED: ONDANSETRON HCL 4 MG/2 ML VIAL IV PRN (07:00)
[2025-01-31] MEDS ORDERED: HYDR-3682 PO (07:25)
--- NOTE | 2025-01-31 07:29 | DVHHP2 ---
History of Present Illness Reason for Visit: Pelvic pain History of Present Illness Yulissa Rodrigues is a 75-year-old female with past medical history of hypertension, hyperlipidemia, prediabetic, anxiety, frequent UTIs, dementia, CVA with no deficits, hypothyroidism, CHF, pacemaker that was placed in 06/22/2021, lap angie, , and tubal ligation who presents to the ED with pelvic pain x1 week. Per daughter Kashif at bedside states that the patient has been having multiple UTIs was given Pyridium and antibiotics to help. She states that the medication has still not been helping. Patient reports the current pain /10 nonradiating with frequency and burning while voiding with diarrhea. Kashif vidales is the POA for the patient. Daughter at bedside reports that her who 3 years ago with suspected of cheating on her with multiple partners which is why she was requesting testing for gonorrhea and chlamydia. Patient denies any chest pain, shortness of breath, fever, chills, lightheadedness, weakness, dizziness, abdominal pain, nausea, or vomiting. 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 ATTENDANT: Other (Dementia and CVA) Psych: Anxiety Renal/: UTI Endocrine: Hypothyroidism Past Surgical History: Cholecystectomy, , Tubal Ligation Family History: Other (Both parents and grandmother had leukemia) Smoke: No ALCOHOL: none Drugs: None Lives: with Family Domestic Violence: Neg Review of Systems Gastrointestinal: Diarrhea Genitourinary: Dysuria, Frequency, Other (Pelvic pain) Allergies: Coded Allergies: Iodinated Diagnostic Agents (Verified Allergy, Mild, 12/12/16) Exam Vital Signs Vital Signs Date Time Temp Pulse Resp B/P (MAP) Pulse Ox O2 Delivery O2 Flow Rate FiO2 01/31/25 07:05 99.5 66 16 119/54 (75) 96 99.5 01/31/25 02:15 Room Air* 0 21 General Appearance: Alert, Oriented X3, Cooperative, No acute distress HEENT: Atraumatic, PERRLA, EOMI, Mucous membr. moist/pink Respiratory: Clear to auscultation, Normal air movement Cardiovascular: Regular rate, Normal S1, Normal S2, No murmurs Abdominal: Normal bowel sounds, Soft Extremities: No clubbing, No cyanosis, No edema, Normal pulses, No tenderness/swelling Skin: No significant lesion Neuro: Normal speech, Strength at 5/5 X4 ext, Normal tone, Sensation intact Psych/Mental Status: Mental status NL, Mood NL Labs/Xrays Labs Test 01/31/25 04:38 01/31/25 01:43 01/30/25 21:05 Range/Units Urine Color Yellow Yellow Urine Clarity Clear Clear Urine pH 6.0 5.0-9.0 Urine Specific [place] > 1.050 H 1.001-1.035 Urine Protein 1+ H Negative Urine Ketones Negative Negative Urine Blood Negative Negative /uL Urine Nitrite Negative Negative Urine Bilirubin Negative Negative Urine Urobilinogen Normal Negative mg/dL Urine Leukocyte Esterase 1+ Negative /uL Urine RBC 14 0 - 4 /hpf Urine Microscopic WBC 51 H 0-5 /HPF Urine Squamous Epithelial Cells Few <5 /hpf Urine Bacteria None seen None Seen /hpf Urine Glucose Normal Normal mg/dL Lactic Acid Level 1.3 0.4-2.0 mmol/L White Blood Count 6.4 4.4-10.8 10^3/uL Red Blood Count 4.01 4.0-5.20 10^6/uL Hemoglobin 12.5 12.2-16.2 g/dL Hematocrit 37.6 36.0-46.0 % Mean Corpuscular Volume 93.6 80.0-100.0 fL Mean Corpuscular Hemoglobin 31.2 28.0-32.0 pg Mean Corpuscular Hemoglobin Concent 33.4 32.0-36.0 g/dL Red Cell Distribution Width 15.1 H 11.8-14.3 % Platelet Count 246 140-450 10^3/uL Mean Platelet Volume 8.9 6.9-10.8 fL Neutrophils (%) (Auto) 66.4 37.0-80.0 % Lymphocytes (%) (Auto) 25.7 10.0-50.0 % Monocytes (%) (Auto) 5.7 0.0-12.0 % Eosinophils (%) (Auto) 1.7 0.0-7.0 % Basophils (%) (Auto) 0.5 0.0-2.0 % Neutrophils # (Auto) 4.2 1.6-8.6 10 ^3/uL Lymphocytes # (Auto) 1.6 0.4-5.4 10 ^3/uL Monocytes # (Auto) 0.4 0-1.3 10 ^3/uL Eosinophils # (Auto) 0.1 0-0.8 10 ^3/uL Basophils # (Auto) 0 0-0.2 10 ^3/uL Nucleated Red Blood Cells 0.1 % Sodium Level 144 136-145 mmol/L Potassium Level 4.0 3.5-5.1 mmol/L Chloride Level 111 H 98-107 mmol/L Carbon Dioxide Level 26 20-31 mmol/L Anion Gap 7 5-15 Blood Urea Nitrogen 25 H 9-23 mg/dL Creatinine 0.68 0.550-1.02 mg/dL Glomerular Filtration Rate Calc 91 >90 mL/min BUN/Creatinine Ratio 36.8 H 10.0-20.0 Serum Glucose 113 H 74-106 mg/dL Calcium Level 9.7 8.7-10.4 mg/dL Total Bilirubin 0.7 0.2-1.0 mg/dL Aspartate Amino Transferase (AST) 20 13-40 U/L Alanine Aminotransferase (ALT) 29 7-40 U/L Alkaline Phosphatase 100 46-116 U/L Total Protein 6.5 5.7-8.2 g/dL Albumin 4.2 3.2-4.8 g/dL Lipase 52 12-53 U/L INDICATION: pain TECHNIQUE: Multiple real-time sonographic images of the kidneys and bladder were obtained. COMPARISON: CT scan of the abdomen pelvis dated 01/30/2025 FINDINGS: The right kidney measures 10.1 cm in length, which is normal in size. There is normal echogenicity of the right kidney. Mild right hydronephrosis. The left kidney measures 9.2 cm in length, which is normal in size. There is normal echogenicity of the left kidney. No hydronephrosis. No large intraluminal masses are seen in the bladder. Prior to voiding the bladder volume measures volume 328 cc. IMPRESSION: 1. Mild right hydronephrosis. No obstructing stone seen. Exam: CT CT AB PEL WITH IV CON ONLY History: BLQ pain COMPARISON: None Technique: Multidetector spiral CT of the abdomen and pelvis was performed from lung bases to pubic symphysis. Intravenous contrast was administered during this examination. Portal venous imaging was obtained. Axial, coronal and sagittal multiplanar reformats were performed by the technologist on a separate workstation. Radiation Dose : 1. Abdomen/Pelvis: CTDIvol 5.24 mGy, DLP 266.33 mGy*cm. CONTRAST: Type of contrast: Omnipaque 300 Contrast injected: 100 ml Contrast ingested: None Findings: Lung Bases: No acute or significant lung base finding. Normal heart size. No pleural or pericardial effusion. Cardiac pacing leads noted. Liver: The liver is normal in size. No focal lesions. Normal hepatic vascular enhancement. Gallbladder and Biliary Tree: The gallbladder is surgically absent. Spleen: Unremarkable Pancreas: The pancreas is normal in appearance without focal lesions or abnormal enhancement. Adrenal Glands: Unremarkable Kidneys: No hydronephrosis. Benign-appearing bilateral subcentimeter cysts. Bladder: Unremarkable Bowel: The stomach is grossly normal in appearance. Small bowel and colon are normal in caliber and distribution. Colonic diverticular disease of the descending and sigmoid colon without evidence of acute diverticulitis. The appendix is not visualized; however, no secondary findings of acute appendicitis identified. Ascites: Absent Lymphadenopathy: No mesenteric, retroperitoneal or periportal lymphadenopathy. Abdominal Wall and Mesentery: Unremarkable. Vasculature: The visualized abdominal aorta is normal in size and caliber. Atherosclerotic vascular calcifications are noted. Abdominal and pelvic vessels demonstrate normal enhancement. Pelvic Organs: Unremarkable Musculoskeletal: No aggressive focal bony lesions, acute fractures or dislocation. IMPRESSION: 1. No acute abdominal or pelvic finding. Assessment/Plan Assessment/Plan Assessment Intractable pelvic pain with diarrhea and dysuria Acute cystitis Mild right hydronephrosis Elevated BUN History of hypertension History of hyperlipidemia History of anxiety History of prediabetes History of UTI History of dementia History of CVA with no deficits History of CHF History of hypothyroidism History of cholecystectomy History of History of tubal ligation Plan Admit to [facility] UA CT abdomen and pelvis noted IV antibiotics-ceftriaxone + doxycycline Antiemetics Pain management IV fluids given ED Antiemetics Gonorrhea testing Chlamydia testing Blood cultures Lactic Lipase EKG noted Renal ultrasound Hemoglobin A1c Strict I&Os Daily weights Home medications reconciled Discussed plan of care with patient, patient's daughter, and nurse DVT prophylaxis-not indicated patient ambulating PUD prophylaxis-not indicated no history of GERD or GI bleed Plan discussed with: Patient, Daughter Date of Service: Jan 31, 2025 Billing Provider: KENNY LION Common Visit Codes: [id number] INP/OBS CARE (HIGH) KENNY LION Jan 31, 2025 07:28
--- NOTE | 2025-01-31 08:00 | DVH ---
INDICATION: pain TECHNIQUE: Multiple real-time sonographic images of the kidneys and bladder were obtained. COMPARISON: CT scan of the abdomen pelvis dated 01/30/2025 FINDINGS: The right kidney measures 10.1 cm in length, which is normal in size. There is normal echogenicity of the right kidney. Mild right hydronephrosis. The left kidney measures 9.2 cm in length, which is normal in size. There is normal echogenicity of t he left kidney. No hydronephrosis. No large intraluminal masses are seen in the bladder. Prior to voiding the bladder volume measures vo lume 328 cc. IMPRESSION: 1. Mild right hydronephrosis. No obstructing stone seen.
[2025-01-31 08:50] VITALS: PULSE 64; RESP 12; O2SAT 98
[2025-01-31 10:25] VITALS: BP 106/75; PULSE 64; RESP 18; TEMP 97.8; O2SAT 95; O2SAT 98
[2025-01-31] MEDS ORDERED: PHEN1TAB38 PO (11:26)
[2025-01-31] MEDS: MORPHINE SULFATE INJ 2 MG/ml SYRG IV PRN (12:55)
[2025-01-31 13:00] VITALS: BP 114/48; PULSE 70; RESP 19; TEMP 97.8; O2SAT 95
[2025-01-31 13:35] LABS: Basophils # (auto) 0 10 ^3/uL (0-0.2); Basophils % (auto) 0.6 % (0.0-2.0); Eosinophils # (auto) 0.1 10 ^3/uL (0-0.8); Eosinophils % (auto) 2.7 % (0.0-7.0); Hematocrit 33.6 % (36.0-46.0); Hemoglobin 11.4 g/dL (12.2-16.2); Lymphocytes # (auto) 1.5 10 ^3/uL (0.4-5.4); Lymphocytes % (auto) 28.8 % (10.0-50.0); Mean Corpuscular Hgb Conc. 33.9 g/dL (32.0-36.0); Mean Corpuscular Volume 94.5 fL (80.0-100.0); Monocytes # (auto) 0.4 10 ^3/uL (0-1.3); Neutrophils # (auto) 3.2 10 ^3/uL (1.6-8.6); Neutrophils % (auto) 60.9 % (37.0-80.0); Nucleated Red Blood Cells % 0.1 %; Platelet Count (auto) 214 10^3/uL (140-450); Red Blood Cells 3.55 10^6/uL (4.0-5.20); Red Cell Distribution Width 15.2 % (11.8-14.3); White Blood Cell 5.3 10^3/uL (4.4-10.8)
[2025-01-31 13:42] LABS: Potassium 3.9 mmol/L (3.5-5.1); Sodium 141 mmol/L (136-145)
[2025-01-31 13:43] LABS: Anion Gap 6 (5-15); Carbon Dioxide 25 mmol/L (20-31)
[2025-01-31 13:44] LABS: Calcium 9.2 mg/dL (8.7-10.4)
[2025-01-31 13:48] LABS: BUN/Creatinine Ratio 32.7 (10.0-20.0); Blood Urea Nitrogen 18 mg/dL (9-23)
[2025-01-31 13:50] LABS: Chloride 110 mmol/L (98-107); Glucose 113 mg/dL (74-106)
[2025-01-31 13:51] LABS: Phosphorus 3.4 mg/dL (2.4-5.1)
[2025-01-31] MEDS: HYDROcodone-ACET 5/325MG TAB PO PRN (15:36)
[2025-01-31 17:00] VITALS: BP 113/72; PULSE 68; RESP 20; TEMP 98.3; O2SAT 95
--- NOTE | 2025-01-31 17:15 | DVHPNRES ---
Progress Note Date Seen: Jan 31, 2025 Resident Creating Document: MIKY OWEN RESIDENT Medical Necessity Reason Pt with a Central, PICC or Fol: No Subjective Review of Systems Yulissa Rodrigues is a 75-year-old female patient who presents to the ED with pelvic pain, suprapubic tenderness, chills, dysuria and urinary frequency for 1 week before her admission. Per daughter Kashif at bedside states that the patient has been having multiple UTIs was given Pyridium and antibiotics to help. She states that the medication has still not been helping. Denies chest pain, shortness of breath, fever, lightheadedness, weakness, dizziness, abdominal pain, nausea, or vomiting. Past medical history: Hypertension, dyslipidemia, prediabetic, anxiety, frequent UTIs, CVA with dementia, hypothyroidism, frequent UTIs, sick sinus syndrome status post permanent pacemaker placement, CHF Surgical history: Cholecystectomy, , bilateral tubal ligation, permanent pacemaker placement. Family history: Both parents disease, grandmother leukemia Social history: Lives with family, daughter Kashif is [id number]. three years ago, per daughter cheated on patient, never had STD testing. Denies current tobacco, alcohol and other drug abuse Allergies: Iodinated agents Home medication: Donepezil 10 mg p.o. daily, hydroxyzine 25 mg p.o. daily, levofloxacin 500 mg p.o. daily, phenazopyridine 200 mg p.o. t.i.d., meclizine 25 mg PO prn Patient seen and examined at bedside. Continuous complain of suprapubic pain and dysuria. Patient presents mild hydronephrosis, offered Dexter catheter but patient refused at this time, since she still urinates no problems. Objective vital signs Vital Sign Date Time Temp Pulse Resp B/P (MAP) Pulse Ox O2 Delivery O2 Flow Rate FiO2 01/31/25 13:00 97.8 70 19 114/48 (70) 95 97.8 01/31/25 10:25 Room Air* 0 21 Total Intake and Output 01/30/25 01/30/25 01/31/25 15:00 23:00 07:00 Intake Total 1050 ml Balance 1050 ml medications Current Medications Medications Dose Ordered Sig/Tai Route Start Time Stop Time Status Last Admin Dose Admin Ceftriaxone Sodium 50 ml @ 100 mls/hr DAILY@09 IV 02/01/25 09:00 Acetaminophen/ Hydrocodone Bitart 1 tab Q4HP PRN PO 01/31/25 07:00 01/31/25 15:36 1 TAB Ondansetron HCl 4 mg Q4HP PRN IV 01/31/25 07:00 Acetaminophen 650 mg Q6HP PRN PO 01/31/25 07:00 Morphine Sulfate 2 mg Q4HPRN PRN IV 01/31/25 07:00 01/31/25 12:55 2 MG Donepezil HCl 10 mg HS PO 01/31/25 22:00 Doxycycline Hyclate 100 ml @ 50 mls/hr Q12H IV 01/31/25 15:45 Examination Patient lying in bed, in no acute distress General: Lucid, afebrile, mucosae are moist Cardiovascular: Normal S1 and S2. No murmurs, gallops or rubs Respiratory: Normal ventilation mechanics. Clear lung sounds on auscultation Abdomen: Soft, tenderness in suprapubic area with superficial palpation rest of abdomen nontender, no organomegaly, normal bowel sounds : Negative costovertebral tenderness on percussion MSK/skin: Mobilizes 4 limbs. Skin is dry and warm Neurological: Oriented in 3 spheres. No motor no sensitive deficits. 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 Urine analysis showed esterase plus one and white blood cells 51. Per daughter, patient is and used to treat on her, ordered chlamydia and gonorrhea. Completed abdominal pelvis CT which showed no acute findings Renal ultrasound showed mild hydronephrosis on right side. Consulted Urology to rule out structural disease due to multiple episodes of UTI which have not resolved with various antibiotic courses of IV antibiotics-ceftriaxone + doxycycline Blood in urine culture ordered, pending results Patient refused Dexter catheter, explained findings of mild right hydronephrosis, patient prefers trying with IV antibiotics, and patient's says that she still urinates. Elevated TSH, ordered free T4 and total T3. We will evaluate need for levothyroxine, patient was not on any home medication. Goals of care discussed with patient for over 18 minutes: Full code status Discussed plan with Dr. Peoples, patient and nurses: Continue with empiric IV antibiotic (ceftriaxone and doxycycline), consulted Urology due to multiple episodes of UTI which did not respond with empiric antibiotics and mild hydronephrosis to rule out structural abnormalities of urinary tract (including malignancy). TSH is elevated, have ordered free T4 and total T3 to evaluate initiation of levothyroxine (patient was not on p.o. treatment). Patient has poor prognosis Plan discussed with: Patient, Other (Nurses) My Orders My Orders Orders - MIYK OWEN Procedure Category Date Status Time Vitamin B12 LAB 01/31/25 In Process 13:02 Drug Screen LAB 01/31/25 Logged 13:02 Urine Bacterial JENNIFER 01/31/25 Logged Culture 13:03 Date of Service: Jan 31, 2025 Billing Provider: PEGGY PEOPLES MD Common Visit Codes: [id number] INP/OBS CARE(HIGH) MIKY OWEN Jan 31, 2025 17:15 PEGGY PEOPLES MD Feb 11, 2025 20:39
[2025-01-31] MEDS: DOXYCYCLINE 100MG/100ML 100 ML IV SCH (17:21)
[2025-01-31 19:19] LABS: Amphetamine Screen, Urine Neg (NEGATIVE); Opiate Scree,Urine Neg (NEGATIVE)
[2025-01-31 19:20] LABS: Barbiturate Scree,Urine Neg (NEGATIVE); Benzodiazephine Screen, Urine Neg (NEGATIVE); Cannabinoid Screen, Urine Neg (NEGATIVE); Cocaine Screen, Urine Neg (NEGATIVE); Phencyclidine Screen, Urine Neg (NEGATIVE)
[2025-01-31 21:00] VITALS: BP 108/48; PULSE 66; RESP 19; TEMP 98.4; O2SAT 96
[2025-01-31] MEDS: DONEPEZIL HYDROCHLORIDE 5 MG TAB PO SCH (22:04)
[2025-01-31 22:41] LABS: Free T4 (Free Thyroxine) 0.9 ng/dL (0.89-1.76); T3 Total 0.98 ng/mL (0.60-1.81)
[2025-02-01] VITALS (8 sets, daily range): BP systolic 108–138; BP diastolic 49–88; PULSE 61–96; RESP 12–18; TEMP 97.5–98.3; O2SAT 95–99
[2025-02-01] MEDS: cefTRIAXone 1GM/50ML D5W 50 ML IV SCH (09:05)
[2025-02-01] MEDS: ENOXAPARIN SOD 40 MG/0.4 ML SYRINGE SC SCH (09:06)
[2025-02-01] MEDS: ATORVASTATIN 20 MG TAB PO ONE (09:06)
[2025-02-01] MEDS: ASPirin 81 mg TAB PO SCH (09:06)
[2025-02-01 10:46] LABS: Basophils # (auto) 0 10 ^3/uL (0-0.2); Basophils % (auto) 0.6 % (0.0-2.0); Eosinophils # (auto) 0.2 10 ^3/uL (0-0.8); Eosinophils % (auto) 3.5 % (0.0-7.0); Hematocrit 36.1 % (36.0-46.0); Lymphocytes # (auto) 1.4 10 ^3/uL (0.4-5.4); Mean Corpuscular Hemoglobin 31.2 pg (28.0-32.0); Mean Corpuscular Hgb Conc. 33.4 g/dL (32.0-36.0); Mean Corpuscular Volume 93.6 fL (80.0-100.0); Monocytes # (auto) 0.3 10 ^3/uL (0-1.3); Monocytes % (auto) 6.4 % (0.0-12.0); Neutrophils # (auto) 3.3 10 ^3/uL (1.6-8.6); Neutrophils % (auto) 63.5 % (37.0-80.0); Platelet Count (auto) 223 10^3/uL (140-450); Red Blood Cells 3.86 10^6/uL (4.0-5.20); Red Cell Distribution Width 15.3 % (11.8-14.3); White Blood Cell 5.2 10^3/uL (4.4-10.8)
[2025-02-01 10:49] LABS: Potassium 3.8 mmol/L (3.5-5.1); Sodium 143 mmol/L (136-145)
[2025-02-01 10:50] LABS: Anion Gap 7 (5-15); Carbon Dioxide 27 mmol/L (20-31)
[2025-02-01 10:51] LABS: Calcium 9.3 mg/dL (8.7-10.4)
[2025-02-01 10:55] LABS: BUN/Creatinine Ratio 22.6 (10.0-20.0); Blood Urea Nitrogen 14 mg/dL (9-23)
[2025-02-01 10:57] LABS: Chloride 109 mmol/L (98-107); Glucose 116 mg/dL (74-106)
--- NOTE | 2025-02-01 11:02 | DVH ---
CHEST RADIOGRAPH Indication: POSSIBLE PNEUMONIA Technique: Single frontal view of the chest was obtained COMPARISON: CHEST XRAY 1 VIEW on DOS: 06/23/21, CHEST PORTABLE on DOS: 06/22/21 FINDINGS: Lines and Tubes: Left chest pacemaker Lungs: Congestion Pleura: No effusion. No pneumothorax. Cardiomediastinal contours: Unremarkable Bones: Unremarkable IMPRESSION: Mild congestion
--- NOTE | 2025-02-01 13:58 | DVHPNRES ---
Progress Note Date Seen: Feb 01, 2025 Resident Creating Document: MKIY OWEN RESIDENT Medical Necessity Reason Pt with a Central, PICC or Fol: Yes The following are medically ne: Dexter Catheter Subjective Review of Systems Yulissa Rodrigues is a 75-year-old female patient who presents to the ED with pelvic pain, suprapubic tenderness, chills, dysuria and urinary frequency for 1 week before her admission. Per daughter Kashif at bedside states that the patient has been having multiple UTIs was given Pyridium and antibiotics to help. She states that the medication has still not been helping. Denies chest pain, shortness of breath, fever, lightheadedness, weakness, dizziness, abdominal pain, nausea, or vomiting. Past medical history: Hypertension, dyslipidemia, prediabetic, anxiety, frequent UTIs, CVA with dementia, hypothyroidism, frequent UTIs, sick sinus syndrome status post permanent pacemaker placement, CHF Surgical history: Cholecystectomy, , bilateral tubal ligation, permanent pacemaker placement. Family history: Both parents disease, grandmother leukemia Social history: Lives with family, daughter Kashif is [id number]. three years ago, per daughter cheated on patient, never had STD testing. Denies current tobacco, alcohol and other drug abuse Allergies: Iodinated agents Home medication: Donepezil 10 mg p.o. daily, hydroxyzine 25 mg p.o. daily, levofloxacin 500 mg p.o. daily, phenazopyridine 200 mg p.o. t.i.d., meclizine 25 mg PO prn Patient seen and examined at bedside. Continuous complain of suprapubic pain and dysuria. Patient presents mild hydronephrosis, offered Dexter catheter once again, and patient accepted at this time. Planning on placing Dexter catheter. Objective vital signs Vital Sign Date Time Temp Pulse Resp B/P (MAP) Pulse Ox O2 Delivery O2 Flow Rate FiO2 02/01/25 04:42 97.9 68 14 108/60 (76) 96 97.9 01/31/25 20:00 Room Air* 0 21 Total Intake and Output 01/31/25 01/31/25 02/01/25 15:00 23:00 07:00 Intake Total 300 ml 900 ml Balance 300 ml 900 ml medications Current Medications Medications Dose Ordered Sig/Tai Route Start Time Stop Time Status Last Admin Dose Admin Ceftriaxone Sodium 50 ml @ 100 mls/hr DAILY@09 IV 02/01/25 09:00 02/01/25 09:05 100 MLS/HR Acetaminophen/ Hydrocodone Bitart 1 tab Q4HP PRN PO 01/31/25 07:00 02/01/25 10:36 1 TAB Ondansetron HCl 4 mg Q4HP PRN IV 01/31/25 07:00 Acetaminophen 650 mg Q6HP PRN PO 01/31/25 07:00 Morphine Sulfate 2 mg Q4HPRN PRN IV 01/31/25 07:00 01/31/25 12:55 2 MG Donepezil HCl 10 mg HS PO 01/31/25 22:00 01/31/25 22:04 10 MG Doxycycline Hyclate 100 ml @ 50 mls/hr Q12H IV 01/31/25 15:45 02/01/25 03:55 50 MLS/HR Enoxaparin Sodium 40 mg DAILY SC 02/01/25 10:00 02/01/25 09:06 40 MG Aspirin 81 mg DAILY PO 02/01/25 10:00 02/01/25 09:06 81 MG Atorvastatin Calcium 40 mg HS PO 02/01/25 22:00 Examination Patient lying in bed, in no acute distress General: Lucid, afebrile, mucosae are moist Cardiovascular: Normal S1 and S2. No murmurs, gallops or rubs Respiratory: Normal ventilation mechanics. Clear lung sounds on auscultation Abdomen: Soft, tenderness in suprapubic area with superficial palpation rest of abdomen nontender, no organomegaly, normal bowel sounds : Negative costovertebral tenderness on percussion MSK/skin: Mobilizes 4 limbs. Skin is dry and warm Neurological: Oriented in 3 spheres. No motor no sensitive deficits. Pupils are isocoric and reactive laboratory and microbiology Laboratory Tests 02/01/25 10:16 Test 02/01/25 10:16 Range/Units Serum Glucose 116 H 74-106 mg/dL Microbiology Date/Time Source Procedure Growth Status 01/31/25 04:38 Voided Urine Urine Culture - Preliminary Resulted 01/31/25 01:43 Blood Blood Culture - Preliminary NO GROWTH AFTER 24 HOURS OF INCUBATION. 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 Urine analysis showed esterase plus one and white blood cells 51. Per daughter, patient is and used to cheat on her, ordered HIV, chlamydia and gonorrhea. Completed abdominal pelvis CT which showed no acute findings Renal ultrasound showed mild hydronephrosis on right side. Consulted Urology to rule out structural disease due to multiple episodes of UTI which have not resolved with various antibiotic courses of IV antibiotics-ceftriaxone + doxycycline Blood in urine culture ordered, pending results Patient accepted Dexter catheter placement Elevated TSH, however presents normal free T4 and total T3. No need for initiating medication at this time. Goals of care discussed with patient for over 18 minutes: Full code status Discussed plan with Dr. Peoples, patient and nurses: Continue with empiric IV antibiotic (ceftriaxone and doxycycline), consulted Urology due to multiple episodes of UTI which did not resolve with empiric antibiotics and mild hydronephrosis to rule out structural abnormalities of urinary tract (including malignancy). Patient accepted Dexter catheter placement. Patient has poor prognosis Plan discussed with: Patient, Daughter, Other (Nurses) My Orders My Orders Orders - MIKY OWEN Procedure Category Date Status Time * Urology Consult CONS 01/31/25 Transmitted 21:26 Enoxaparin Sodium PHA 02/01/25 In Process (Lovenox) 10:00 Aspirin Tablet PHA 02/01/25 In Process 10:00 Atorvastatin (Lipitor) PHA 02/01/25 In Process 22:00 Chest Portable XY 02/01/25 Resulted 10:18 Date of Service: Feb 01, 2025 Billing Provider: PEGGY PEOPLES MD Common Visit Codes: [id number] INP/OBS CARE(HIGH) MIKY OWEN RESIDENT Feb 01, 2025 13:58 PEGGY PEOPLES MD Feb 11, 2025 20:42
[2025-02-01] MEDS: LIDOCAINE 2% JELLY 11ml (GLYDO) UR ONE (14:30)
[2025-02-01] MEDS: ATORVASTATIN 20 MG TAB PO SCH (22:17)
[2025-02-02] VITALS (9 sets, daily range): BP systolic 105–142; BP diastolic 38–66; PULSE 60–73; RESP 14–18; TEMP 97.3–98.3; O2SAT 92–99
[2025-02-02 06:06] LABS: Chlamydia Trachomatis, NAA Negative (Negative); Neisseria gonorrhoeae, NAA Negative (Negative)
[2025-02-02 06:13] LABS: Basophils # (auto) 0 10 ^3/uL (0-0.2); Basophils % (auto) 0.5 % (0.0-2.0); Eosinophils # (auto) 0.2 10 ^3/uL (0-0.8); Hematocrit 37.5 % (36.0-46.0); Hemoglobin 12.6 g/dL (12.2-16.2); Lymphocytes # (auto) 1.6 10 ^3/uL (0.4-5.4); Lymphocytes % (auto) 19.9 % (10.0-50.0); Mean Corpuscular Hemoglobin 31.6 pg (28.0-32.0); Mean Corpuscular Hgb Conc. 33.6 g/dL (32.0-36.0); Mean Corpuscular Volume 94.3 fL (80.0-100.0); Monocytes # (auto) 0.4 10 ^3/uL (0-1.3); Monocytes % (auto) 4.7 % (0.0-12.0); Neutrophils # (auto) 5.7 10 ^3/uL (1.6-8.6); Neutrophils % (auto) 72.9 % (37.0-80.0); Platelet Count (auto) 213 10^3/uL (140-450); Red Blood Cells 3.98 10^6/uL (4.0-5.20); Red Cell Distribution Width 15.1 % (11.8-14.3); White Blood Cell 7.8 10^3/uL (4.4-10.8)
[2025-02-02 06:24] LABS: Chloride 106 mmol/L (98-107); Sodium 141 mmol/L (136-145)
[2025-02-02 06:25] LABS: Anion Gap 8 (5-15); Calcium 9.5 mg/dL (8.7-10.4); Carbon Dioxide 27 mmol/L (20-31)
[2025-02-02 06:30] LABS: BUN/Creatinine Ratio 26.2 (10.0-20.0); Blood Urea Nitrogen 16 mg/dL (9-23); Glucose 101 mg/dL (74-106)
--- NOTE | 2025-02-02 08:38 | DVHPNRES ---
Progress Note Date Seen: Feb 02, 2025 Resident Creating Document: ADELIA DE LEON RESIDENT Medical Necessity Reason Pt with a Central, PICC or Fol: Yes The following are medically ne: Miller Catheter Subjective Review of Systems patient seen and examined at bed side Still as dysuria and pelvic pain Feeling sick, no fever. Urology pending Pending urine culture. Objective vital signs Vital Sign Date Time Temp Pulse Resp B/P (MAP) Pulse Ox O2 Delivery O2 Flow Rate FiO2 02/02/25 05:00 97.7 60 14 106/38 (60) 95 97.7 02/01/25 20:00 Room Air* 0 21 Total Intake and Output 02/01/25 02/01/25 02/02/25 15:00 23:00 07:00 Intake Total 50 ml 550 ml 100 ml Output Total 175 ml Balance -125 ml 550 ml 100 ml medications Current Medications Medications Dose Ordered Sig/Tai Route Start Time Stop Time Status Last Admin Dose Admin Ceftriaxone Sodium 50 ml @ 100 mls/hr DAILY@09 IV 02/01/25 09:00 02/02/25 08:12 100 MLS/HR Acetaminophen/ Hydrocodone Bitart 1 tab Q4HP PRN PO 01/31/25 07:00 02/02/25 08:11 1 TAB Ondansetron HCl 4 mg Q4HP PRN IV 01/31/25 07:00 Acetaminophen 650 mg Q6HP PRN PO 01/31/25 07:00 Morphine Sulfate 2 mg Q4HPRN PRN IV 01/31/25 07:00 02/01/25 22:19 2 MG Donepezil HCl 10 mg HS PO 01/31/25 22:00 02/01/25 22:16 10 MG Doxycycline Hyclate 100 ml @ 50 mls/hr Q12H IV 01/31/25 15:45 02/02/25 04:12 50 MLS/HR Enoxaparin Sodium 40 mg DAILY SC 02/01/25 10:00 02/02/25 08:12 40 MG Aspirin 81 mg DAILY PO 02/01/25 10:00 02/02/25 08:13 81 MG Atorvastatin Calcium 40 mg HS PO 02/01/25 22:00 02/01/25 22:17 40 MG Examination General Appearance: Cooperative. Well developed. Well nourished. NAD Head Exam: Normal inspection Neck Exam: Normal inspection. Non-tender. Normal alignment Pulmonary/Respiratory: Chest non-tender. Clear bilateral breath sounds Cardiovascular/Chest: Regular rate and rhythm. No murmurs. No JVD. Peripheral Pulses: 2+ Radial (R). 2+ Radial (L). 2+ Pedal (R). 2+ Pedal (L) Abdominal Exam: Normal bowel sounds. Soft. Nontender. No hepatospenomegaly. No masses, suprapubic tenderness. No costovertebral angle tenderness Ankle Exam: Negative ankle edema Lower extremities: Negative lower extremity edema Neuro/Mental Status: A&O x4. Coherent Thoughts/Psych: Normal thought pattern. Appropriate mood and affect. Good judgement and insight Appearance: In no acute distress Skin Exam: Normal inspection. Normal color. Warm. Dry laboratory and microbiology Laboratory Tests 02/02/25 05:10 Test 02/02/25 05:10 Range/Units Serum Glucose 101 74-106 mg/dL Microbiology Date/Time Source Procedure Growth Status 01/31/25 04:38 Voided Urine Urine Culture - Preliminary Resulted 01/31/25 01:43 Blood Blood Culture - Preliminary NO GROWTH AFTER 48 HOURS OF INCUBATION. 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 atleast 5-7 episodes in last 2 years. last episode 2 months ago Currently under empiric IV antibiotic (ceftriaxone and doxycycline), completed previous course with levofloxacin. Urine analysis showed esterase plus one and white blood cells 51. negative HIV, gonnorrhea and chlamydia Completed abdominal pelvis CT which showed no acute findings Renal ultrasound showed mild hydronephrosis on right side. Consulted Urology to rule out structural disease due to multiple episodes of UTI which have not resolved with various antibiotic courses of IV antibiotics-ceftriaxone + doxycycline urine culture: gram negative rods, pending final results miller was removed : did not tolerate. Elevated TSH, however presents normal free T4 and total T3. No need for initiating medication at this time. Goals of care discussed with patient for over 18 minutes: Full code status Discussed plan with Dr. Peoples, patient and nurses: Continue with empiric IV antibiotic (ceftriaxone and doxycycline), pending urology consultation, pending urine culture. Urine culture growing Gram- negative rods. Continue with current antibiotic regimen. Plan discussed with: Patient Date of Service: Feb 02, 2025 Billing Provider: PEGGY PEOPLES MD Common Visit Codes: [id number] INP/OBS CARE(HIGH) ADELIA DE LEON RESIDENT Feb 02, 2025 08:38 PEGGY PEOPLES MD Feb 11, 2025 20:49
--- NOTE | 2025-02-02 17:17 | MEDREC ---
[facility] Intervention Section I [facility] Intervention: Review courses of therapy (IN ABSENCE OF STD PLEASE CONSIDER D/C DOXYCYCLINE) MADDISON CUEVAS PHARMACIST Feb 02, 2025 17:17
[2025-02-02] MEDS: ACETAMINOPHEN 325 MG TAB PO PRN (20:01)
[2025-02-03] VITALS (8 sets, daily range): BP systolic 117–132; BP diastolic 50–79; PULSE 60–68; RESP 18–20; TEMP 97.9–98.3; O2SAT 94–99
[2025-02-03 06:33] LABS: Basophils # (auto) 0 10 ^3/uL (0-0.2); Basophils % (auto) 0.5 % (0.0-2.0); Eosinophils # (auto) 0.3 10 ^3/uL (0-0.8); Hematocrit 37.4 % (36.0-46.0); Hemoglobin 12.8 g/dL (12.2-16.2); Lymphocytes # (auto) 1.7 10 ^3/uL (0.4-5.4); Lymphocytes % (auto) 18.4 % (10.0-50.0); Mean Corpuscular Hgb Conc. 34.1 g/dL (32.0-36.0); Mean Corpuscular Volume 93.6 fL (80.0-100.0); Monocytes # (auto) 0.6 10 ^3/uL (0-1.3); Monocytes % (auto) 6.6 % (0.0-12.0); Neutrophils # (auto) 6.6 10 ^3/uL (1.6-8.6); Neutrophils % (auto) 71.5 % (37.0-80.0); Nucleated Red Blood Cells % 0.1 %; Platelet Count (auto) 231 10^3/uL (140-450); Red Blood Cells 3.99 10^6/uL (4.0-5.20); Red Cell Distribution Width 15.3 % (11.8-14.3); White Blood Cell 9.2 10^3/uL (4.4-10.8)
[2025-02-03 07:01] LABS: Anion Gap 8 (5-15); Calcium 9.7 mg/dL (8.7-10.4); Carbon Dioxide 28 mmol/L (20-31); Chloride 104 mmol/L (98-107); Sodium 140 mmol/L (136-145)
[2025-02-03 07:07] LABS: BUN/Creatinine Ratio 21.7 (10.0-20.0); Blood Urea Nitrogen 13 mg/dL (9-23); Glucose 101 mg/dL (74-106)
--- NOTE | 2025-02-03 07:22 | DVHINCON2 ---
Date of service: Feb 04, 2025 Referring Physician Hospitalist Reason for Consultation UTI History of Present Illness History Source: Patient, RN Notes, MD Notes Exam Limitations: No limitations HPI 75 yo female with recurrent UTI. Home Meds Active Scripts Nitrofurantoin Monohydrate Mac (Macrobid) 100 Mg Cap, 100 MG PO BID for 3 Days, #6 CAP Prov:ADELIA DE LEON RESIDENT 02/04/25 Atorvastatin Calcium (ATORVASTATIN CALCIUM) 20 Mg Tab, 40 MG PO HS for 30 Days, #60 TAB Prov:ADELIA DE LEON RESIDENT 02/04/25 Aspirin (Aspirin Low Dose) 81 Mg Tab, 81 MG PO DAILY for 30 Days, #30 TAB Prov:ADELIA DE LEON RESIDENT 02/04/25 Reported Medications Hydroxyzine Hcl (Hydroxyzine Hcl) 25 Mg Tab, 1 TAB PO QHSP PRN 01/31/25 Donepezil Hydrochloride (DONEPEZIL HCL) 10 Mg Tab, 10 MG PO DAILY, MG 06/18/21 Discontinued Reported Medications Meclizine Hcl (Meclizine Hcl) 25 Mg Tab, 25 MG PO BIDP PRN for DIZZINESS for 30 Days, MG 06/18/21 Past Medical History Patient Family History: Aplastic anemia G8 MOTHER FH: leukemia G8 MOTHER FH: throat cancer G8 FATHER H&P Exam Vital Signs Vital Signs Date Time Temp Pulse Resp B/P (MAP) Pulse Ox O2 Delivery O2 Flow Rate FiO2 02/03/25 05:00 97.9 61 18 126/52 (76) 94 97.9 02/02/25 20:00 Room Air* 0 21 General Appeara: Well developed, Well nourished, Normal Appearance Labs/Xrays [place] [address] Ph: [phone] DIAGNOSTIC IMAGING Diagnostic Imaging Report : [id number] Signed PATIENT: JAZLYN FRANCISACCT: [id number] UNIT: [id number] : 1950 LOC: ER ROOM / BED: / AGE / SEX: 75 / F ADM STATUS: REG ER SERVICE 55 ORDERING PHYSICIAN: JADEN HAN MD PROCEDURE(s): ABPLIV - CT AB PEL WITH IV CON ONLY REASON: BLQ pain ORDER NUMBER(s): [id number], ACCESSION NUMBER(s): [id number] Exam: CT CT AB PEL WITH IV CON ONLY History: BLQ pain COMPARISON: None Technique: Multidetector spiral CT of the abdomen and pelvis was performed from lung bases to pubic symphysis. Intravenous contrast was administered during this examination. Portal venous imaging was obtained. Axial, coronal and sagittal multiplanar reformats were performed by the technologist on a separate workstation. Radiation Dose : 1. Abdomen/Pelvis: CTDIvol 5.24 mGy, DLP 266.33 mGy*cm. CONTRAST: Type of contrast: Omnipaque 300 Contrast injected: 100 ml Contrast ingested: None Findings: Lung Bases: No acute or significant lung base finding. Normal heart size. No pleural or pericardial effusion. Cardiac pacing leads noted. Liver: The liver is normal in size. No focal lesions. Normal hepatic vascular enhancement. Gallbladder and Biliary Tree: The gallbladder is surgically absent. Spleen: Unremarkable Pancreas: The pancreas is normal in appearance without focal lesions or abnormal enhancement. Adrenal Glands: Unremarkable Kidneys: No hydronephrosis. Benign-appearing bilateral subcentimeter cysts. Bladder: Unremarkable Bowel: The stomach is grossly normal in appearance. Small bowel and colon are normal in caliber and distribution. Colonic diverticular disease of the descending and sigmoid colon without evidence of acute diverticulitis. The appendix is not visualized; however, no secondary findings of acute appendicitis identified. Ascites: Absent Lymphadenopathy: No mesenteric, retroperitoneal or periportal lymphadenopathy. Abdominal Wall and Mesentery: Unremarkable. Vasculature: The visualized abdominal aorta is normal in size and caliber. Atherosclerotic vascular calcifications are noted. Abdominal and pelvic vessels demonstrate normal enhancement. Pelvic Organs: Unremarkable Musculoskeletal: No aggressive focal bony lesions, acute fractures or dislocation. IMPRESSION: 1. No acute abdominal or pelvic finding. Radiation optimization: All CT scans at this facility use at least one of these dose optimization techniques: automated exposure control mA and/or kV adjustment per patient size (includes targeted exams where dose is matched to clinical indication) or iterative reconstruction. ATED BY: SHAKIR ROTHMAN MD DICTATED DATE/TIME: 01/31/2543 SIGNED BY: SHAKIR ROTHMAN MD SIGNED DATE/TIME: 01/31/2543 CC: [address] [place] - [address] Ph: [phone] DIAGNOSTIC IMAGING Diagnostic Imaging Report : [id number] Signed PATIENT: FABY FRANCIST: [id number] UNIT: [id number] : 1950 LOC: OVERFLOW ROOM / BED: [address] [place] [address] / AGE / SEX: 75 / F ADM STATUS: ADM IN SERVICE 0654 ORDERING PHYSICIAN: KENNY LION [employer]ING HELPER PROCEDURE(s): KIDUS - KIDNEY REASON: pain ORDER NUMBER(s): [id number], ACCESSION NUMBER(s): [id number] INDICATION: pain TECHNIQUE: Multiple real-time sonographic images of the kidneys and bladder were obtained. COMPARISON: CT scan of the abdomen pelvis dated 01/30/2025 FINDINGS: The right kidney measures 10.1 cm in length, which is normal in size. There is normal echogenicity of the right kidney. Mild right hydronephrosis. The left kidney measures 9.2 cm in length, which is normal in size. There is normal echogenicity of the left kidney. No hydronephrosis. No large intraluminal masses are seen in the bladder. Prior to voiding the bladder volume measures volume 328 cc. IMPRESSION: 1. Mild right hydronephrosis. No obstructing stone seen. ATED BY: DEXTER CASAS MD DICTATED DATE/TIME: 01/31/25 0758 Labs Test 02/03/25 05:41 02/01/25 10:16 01/31/25 22:13 01/31/25 13:16 Range/Units White Blood Count 9.2 4.4-10.8 10^3/uL Red Blood Count 3.99 L 4.0-5.20 10^6/uL Hemoglobin 12.8 12.2-16.2 g/dL Hematocrit 37.4 36.0-46.0 % Mean Corpuscular Volume 93.6 80.0-100.0 fL Mean Corpuscular Hemoglobin 32.0 28.0-32.0 pg Mean Corpuscular Hemoglobin Concent 34.1 32.0-36.0 g/dL Red Cell Distribution Width 15.3 H 11.8-14.3 % Platelet Count 231 140-450 10^3/uL Mean Platelet Volume 9.2 6.9-10.8 fL Neutrophils (%) (Auto) 71.5 37.0-80.0 % Lymphocytes (%) (Auto) 18.4 10.0-50.0 % Monocytes (%) (Auto) 6.6 0.0-12.0 % Eosinophils (%) (Auto) 3.0 0.0-7.0 % Basophils (%) (Auto) 0.5 0.0-2.0 % Neutrophils # (Auto) 6.6 1.6-8.6 10 ^3/uL Lymphocytes # (Auto) 1.7 0.4-5.4 10 ^3/uL Monocytes # (Auto) 0.6 0-1.3 10 ^3/uL Eosinophils # (Auto) 0.3 0-0.8 10 ^3/uL Basophils # (Auto) 0 0-0.2 10 ^3/uL Nucleated Red Blood Cells 0.1 % Sodium Level 140 136-145 mmol/L Potassium Level 4.0 3.5-5.1 mmol/L Chloride Level 104 98-107 mmol/L Carbon Dioxide Level 28 20-31 mmol/L Anion Gap 8 5-15 Blood Urea Nitrogen 13 9-23 mg/dL Creatinine 0.60 0.550-1.02 mg/dL Glomerular Filtration Rate Calc 94 >90 mL/min BUN/Creatinine Ratio 21.7 H 10.0-20.0 Serum Glucose 101 74-106 mg/dL Calcium Level 9.7 8.7-10.4 mg/dL HIV (1&2) Antibody Negative Negative Free Thyroxine (T4) Calculated 0.90 0.89-1.76 ng/dL Total Triiodothyronine (TT3) 0.98 0.60-1.81 ng/mL Hemoglobin A1c 5.1 <5.7 % A1C Phosphorus Level 3.4 2.4-5.1 mg/dL Magnesium Level 2.0 1.6-2.6 mg/dL Vitamin D 25-Hydroxy 40.8 30.0-100 ng/mL Thyroid Stimulating Hormone (TSH) 7.95 H 0.55-4.78 uIU/mL Test 01/31/25 04:38 01/31/25 01:43 01/30/25 21:05 Range/Units Urine Color Yellow Yellow Urine Clarity Clear Clear Urine pH 6.0 5.0-9.0 Urine Specific [place] > 1.050 H 1.001-1.035 Urine Protein 1+ H Negative Urine Ketones Negative Negative Urine Blood Negative Negative /uL Urine Nitrite Negative Negative Urine Bilirubin Negative Negative Urine Urobilinogen Normal Negative mg/dL Urine Leukocyte Esterase 1+ Negative /uL Urine RBC 14 0 - 4 /hpf Urine Microscopic WBC 51 H 0-5 /HPF Urine Squamous Epithelial Cells Few <5 /hpf Urine Bacteria None seen None Seen /hpf Urine Glucose Normal Normal mg/dL Urine Opiates Screen Neg NEGATIVE Urine Fentanyl Screen Neg NEGATIVE Urine Barbiturates Screen Neg NEGATIVE Urine Phencyclidine Screen Neg NEGATIVE Urine Amphetamines Screen Neg NEGATIVE Urine Benzodiazepines Screen Neg NEGATIVE Urine Cocaine Screen Neg NEGATIVE Urine Cannabinoids Screen Neg NEGATIVE Chlamydia trachomatis (VI) Negative Negative Neisseria gonorrhoeae (VI) Negative Negative Lactic Acid Level 1.3 0.4-2.0 mmol/L Total Bilirubin 0.7 0.2-1.0 mg/dL Aspartate Amino Transferase (AST) 20 13-40 U/L Alanine Aminotransferase (ALT) 29 7-40 U/L Alkaline Phosphatase 100 46-116 U/L Total Protein 6.5 5.7-8.2 g/dL Albumin 4.2 3.2-4.8 g/dL Lipase 52 12-53 U/L Microbiology Date/Time Source Procedure Growth Status 01/31/25 04:38 Voided Urine Urine Culture - Final Complete 01/31/25 01:43 Blood Blood Culture - Preliminary NO GROWTH AFTER 72 HOURS OF INCUBATION. Resulted Assessment/Plan Problem List: (1) Atrophic vulvovaginitis (2) Stricture of female urethra (3) Recurrent urinary tract infection Plan outpt cystoscopy TBA Plan discussed with: FAY Curtis NP Feb 03, 2025 07:22
[2025-02-03 10:37] LABS: Hepatitis B Surface Antigen Negative (Negative); Hepatitis C Antibody Negative (Negative)
--- NOTE | 2025-02-03 12:58 | DVHPNRES ---
Progress Note Date Seen: Feb 03, 2025 Resident Creating Document: ADELIA DE LEON RESIDENT Medical Necessity Reason Pt with a Central, PICC or Fol: Yes The following are medically ne: Miller Catheter Subjective Review of Systems no new complains still suprapubic pain not relieving denying fever Objective vital signs Vital Sign Date Time Temp Pulse Resp B/P (MAP) Pulse Ox O2 Delivery O2 Flow Rate FiO2 02/03/25 12:33 97.9 60 18 117/52 (73) 96 97.9 02/03/25 08:00 Room Air* 0 21 Total Intake and Output 02/02/25 02/02/25 02/03/25 15:00 23:00 07:00 Intake Total 50 ml 650 ml 100 ml Balance 50 ml 650 ml 100 ml medications Current Medications Medications Dose Ordered Sig/Tai Route Start Time Stop Time Status Last Admin Dose Admin Ceftriaxone Sodium 50 ml @ 100 mls/hr DAILY@09 IV 02/01/25 09:00 02/03/25 09:23 100 MLS/HR Acetaminophen/ Hydrocodone Bitart 1 tab Q4HP PRN PO 01/31/25 07:00 02/02/25 17:59 1 TAB Ondansetron HCl 4 mg Q4HP PRN IV 01/31/25 07:00 Acetaminophen 650 mg Q6HP PRN PO 01/31/25 07:00 02/03/25 04:44 650 MG Morphine Sulfate 2 mg Q4HPRN PRN IV 01/31/25 07:00 02/03/25 09:22 2 MG Donepezil HCl 10 mg HS PO 01/31/25 22:00 02/02/25 22:45 10 MG Enoxaparin Sodium 40 mg DAILY SC 02/01/25 10:00 02/03/25 09:23 40 MG Aspirin 81 mg DAILY PO 02/01/25 10:00 02/03/25 09:23 81 MG Atorvastatin Calcium 40 mg HS PO 02/01/25 22:00 02/02/25 22:45 40 MG Examination General Appearance: Cooperative. Well developed. Well nourished. NAD Head Exam: Normal inspection Neck Exam: Normal inspection. Non-tender. Normal alignment Pulmonary/Respiratory: Chest non-tender. Clear bilateral breath sounds Cardiovascular/Chest: Regular rate and rhythm. No murmurs. No JVD. Peripheral Pulses: 2+ Radial (R). 2+ Radial (L). 2+ Pedal (R). 2+ Pedal (L) Abdominal Exam: Normal bowel sounds. Soft. Nontender. No hepatospenomegaly. No masses Ankle Exam: Negative ankle edema Lower extremities: Negative lower extremity edema Neuro/Mental Status: A&O x4. Coherent Thoughts/Psych: Normal thought pattern. Appropriate mood and affect. Good judgement and insight Appearance: In no acute distress Skin Exam: Normal inspection. Normal color. Warm. Dry laboratory and microbiology Laboratory Tests 02/03/25 05:41 Test 02/03/25 05:41 Range/Units Serum Glucose 101 74-106 mg/dL Microbiology Date/Time Source Procedure Growth Status 01/31/25 04:38 Voided Urine Urine Culture - Final Complete 01/31/25 01:43 Blood Blood Culture - Preliminary NO GROWTH AFTER 72 HOURS OF INCUBATION. 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 pending urology evaluation: recurrent UTI since childhood. atleast 5-7 episodes in last 2 years. Outpatient cystoscopy Currently under empiric IV antibiotic (ceftriaxone and doxycycline), completed previous course with levofloxacin. Urine analysis showed esterase plus one and white blood cells 51. negative HIV, gonnorrhea and chlamydia Completed abdominal pelvis CT which showed no acute findings Renal ultrasound showed mild hydronephrosis on right side. Consulted Urology to rule out structural disease due to multiple episodes of UTI which have not resolved with various antibiotic courses of IV antibiotics-ceftriaxone + doxycycline urine culture: gram negative rods, pending final results miller was removed : did not tolerate. Elevated TSH, however presents normal free T4 and total T3. No need for initiating medication at this time. Goals of care discussed with patient for over 18 minutes: Full code status Discussed plan with Dr. Peoples, patient and nurses: Plan discussed with: Patient, Other (RN) My Orders My Orders Orders - ADELIA DE LEON RESIDENT Procedure Category Date Status Time Urine Bacterial JENNIFER 02/02/25 Logged Culture 15:45 Date of Service: Feb 03, 2025 Billing Provider: PEGGY PEOPLES MD Common Visit Codes: [id number] INP/OBS CARE(HIGH) ADELIA DE LEON RESIDENT Feb 03, 2025 12:58 PEGGY PEOPLES MD Feb 11, 2025 21:01
[2025-02-03] MEDS: CONJ ESTROGENS 0.625MG/GM VAG CRM 30GM PV ONE (16:59)
[2025-02-04 00:41] VITALS: BP 118/52; PULSE 61; RESP 18; TEMP 98.2; O2SAT 97
[2025-02-04 05:00] VITALS: BP 128/66; PULSE 73; RESP 18; TEMP 98; O2SAT 97
[2025-02-04 08:00] VITALS: O2SAT 98
[2025-02-04] MEDS: CONJ ESTROGENS 0.625MG/GM VAG CRM 30GM PV SCH (09:17)
[2025-02-04 09:30] VITALS: BP 119/49; PULSE 62; RESP 19; TEMP 97.9; O2SAT 99
[2025-02-04 13:00] VITALS: BP_SYST 12; BP_SYST 122; BP_DIAS 46; PULSE 73; RESP 17; TEMP 98.8; O2SAT 94
[2025-02-04] MEDS ORDERED: NITR-87 PO (14:49)
[2025-02-04] MEDS ORDERED: ASPI-325 PO (14:49)
[2025-02-04] MEDS ORDERED: ATOR20TA50 PO (14:49)
--- NOTE | 2025-02-04 16:05 | DVHDSRES ---
Discharge Summary Date of Admission Resident Creating Document: ADELIA DE LEON RESIDENT Jan 31, 2025 at 06:54 Date of Discharge: Feb 04, 2025 Admitting Diagnosis dysuria Labs/Diagnostic Data: Laboratory Results Test 02/03/25 05:41 02/01/25 10:16 01/31/25 22:13 01/31/25 13:16 White Blood Count 9.2 10^3/uL (4.4-10.8) Red Blood Count 3.99 10^6/uL (4.0-5.20) Hemoglobin 12.8 g/dL (12.2-16.2) Hematocrit 37.4 % (36.0-46.0) Mean Corpuscular Volume 93.6 fL (80.0-100.0) Mean Corpuscular Hemoglobin 32.0 pg (28.0-32.0) Mean Corpuscular Hemoglobin Concent 34.1 g/dL (32.0-36.0) Red Cell Distribution Width 15.3 % (11.8-14.3) Platelet Count 231 10^3/uL (140-450) Mean Platelet Volume 9.2 fL (6.9-10.8) Neutrophils (%) (Auto) 71.5 % (37.0-80.0) Lymphocytes (%) (Auto) 18.4 % (10.0-50.0) Monocytes (%) (Auto) 6.6 % (0.0-12.0) Eosinophils (%) (Auto) 3.0 % (0.0-7.0) Basophils (%) (Auto) 0.5 % (0.0-2.0) Neutrophils # (Auto) 6.6 10 ^3/uL (1.6-8.6) Lymphocytes # (Auto) 1.7 10 ^3/uL (0.4-5.4) Monocytes # (Auto) 0.6 10 ^3/uL (0-1.3) Eosinophils # (Auto) 0.3 10 ^3/uL (0-0.8) Basophils # (Auto) 0 10 ^3/uL (0-0.2) Nucleated Red Blood Cells 0.1 % Sodium Level 140 mmol/L (136-145) Potassium Level 4.0 mmol/L (3.5-5.1) Chloride Level 104 mmol/L (98-107) Carbon Dioxide Level 28 mmol/L (20-31) Anion Gap 8 (5-15) Blood Urea Nitrogen 13 mg/dL (9-23) Creatinine 0.60 mg/dL (0.550-1.02) Glomerular Filtration Rate Calc 94 mL/min (>90) BUN/Creatinine Ratio 21.7 (10.0-20.0) Serum Glucose 101 mg/dL (74-106) Calcium Level 9.7 mg/dL (8.7-10.4) HIV (1&2) Antibody Negative (Negative) Free Thyroxine (T4) Calculated 0.90 ng/dL (0.89-1.76) Total Triiodothyronine (TT3) 0.98 ng/mL (0.60-1.81) Hemoglobin A1c 5.1 % A1C (<5.7) Phosphorus Level 3.4 mg/dL (2.4-5.1) Magnesium Level 2.0 mg/dL (1.6-2.6) Vitamin B12 Level 530 pg/mL (211-911) Vitamin D 25-Hydroxy 40.8 ng/mL (30.0-100) Thyroid Stimulating Hormone (TSH) 7.95 uIU/mL (0.55-4.78) Hepatitis B Surface Antigen Negative (Negative) Hepatitis C Antibody Negative (Negative) Test 01/31/25 04:38 01/31/25 01:43 01/30/25 21:05 Urine Color Yellow (Yellow) Urine Clarity Clear (Clear) Urine pH 6.0 (5.0-9.0) Urine Specific [place] > 1.050 (1.001-1.035) Urine Protein 1+ (Negative) Urine Ketones Negative (Negative) Urine Blood Negative /uL (Negative) Urine Nitrite Negative (Negative) Urine Bilirubin Negative (Negative) Urine Urobilinogen Normal mg/dL (Negative) Urine Leukocyte Esterase 1+ /uL (Negative) Urine RBC 14 /hpf (0 - 4) Urine Microscopic WBC 51 /HPF (0-5) Urine Squamous Epithelial Cells Few /hpf (<5) Urine Bacteria None seen /hpf (None Seen) Urine Glucose Normal mg/dL (Normal) Urine Opiates Screen Neg (NEGATIVE) Urine Fentanyl Screen Neg (NEGATIVE) Urine Barbiturates Screen Neg (NEGATIVE) Urine Phencyclidine Screen Neg (NEGATIVE) Urine Amphetamines Screen Neg (NEGATIVE) Urine Benzodiazepines Screen Neg (NEGATIVE) Urine Cocaine Screen Neg (NEGATIVE) Urine Cannabinoids Screen Neg (NEGATIVE) Chlamydia trachomatis (VI) Negative (Negative) Neisseria gonorrhoeae (VI) Negative (Negative) Lactic Acid Level 1.3 mmol/L (0.4-2.0) Total Bilirubin 0.7 mg/dL (0.2-1.0) Aspartate Amino Transferase (AST) 20 U/L (13-40) Alanine Aminotransferase (ALT) 29 U/L (7-40) Alkaline Phosphatase 100 U/L (46-116) Total Protein 6.5 g/dL (5.7-8.2) Albumin 4.2 g/dL (3.2-4.8) Lipase 52 U/L (12-53) Other Laboratory Tests 02/03/25 05:41 Brief Hx & Hospital Course: Patient is 75-year-old female with Past medical history: Hypertension, dyslipidemia, prediabetic, anxiety, frequent UTIs, CVA with dementia, hypothyroidism, frequent UTIs, sick sinus syndrome status post permanent pacemaker placement, CHF Surgical history: Cholecystectomy, , bilateral tubal ligation, permanent pacemaker placement. Family history: Both parents disease, grandmother leukemia Social history: Lives with family, daughter Kashif is [id number]. three years ago, per daughter cheated on patient, never had STD testing. Denies current tobacco, alcohol and other drug abuse Allergies: Iodinated agents Home medication: Donepezil 10 mg p.o. daily, hydroxyzine 25 mg p.o. daily, levofloxacin 500 mg p.o. daily, phenazopyridine 200 mg p.o. t.i.d., meclizine 25 mg PO prn Was brought to the hospital with a chief complaint of pelvic pain, suprapubic tenderness, chills, dysuria and for urine frequency for one week before admission. As per patient she had at least 4-5 urinary tract infection last one year for which was treated with antibiotics. Patient denied any other symptoms. Patient was treated with IV antibiotics, Urology consultation was done advised for outpatient cystoscopy. Given pelvic pain likely related atrophic vulvovaginitis, patient was treated with estrogen cream, advised to follow with primary care physician and OBGYN in outpatient setting and follow with urology for outpatient cystoscopy. Physical examination on discharge General Appearance: Cooperative. Well developed. Well nourished. NAD Head Exam: Normal inspection Neck Exam: Normal inspection. Non-tender. Normal alignment Pulmonary/Respiratory: Chest non-tender. Clear bilateral breath sounds Cardiovascular/Chest: Regular rate and rhythm. No murmurs. No JVD. Peripheral Pulses: 2+ Radial (R). 2+ Radial (L). 2+ Pedal (R). 2+ Pedal (L) Abdominal Exam: Normal bowel sounds. Soft. Nontender. No hepatospenomegaly. No masses Ankle Exam: Negative ankle edema Lower extremities: Negative lower extremity edema Neuro/Mental Status: A&O x4. Coherent Thoughts/Psych: Normal thought pattern. Appropriate mood and affect. Good judgement and insight Appearance: In no acute distress Skin Exam: Normal inspection. Normal color. Warm. 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 Patient was counseled about treatment plan, medications, possible side effects, patientverbalized understanding. All questions were answered to the best of my ability. This discharge took greater then 30 minutes in planning, reviewing documentation, counseling the patient, and discussing with other team members." ASSESSMENT ASSESSMENT Assessment uti atrophic vulvovaginitis Date of Service: Feb 04, 2025 Billing Provider: NOVA PETTY MD Common Visit Codes: 19538-IMF/OBS DISCH DAY >30min ADELIA DE LEON RESIDENT Feb 04, 2025 16:05 NOVA PETTY MD Feb 04, 2025 18:28
[2025-02-04 17:14] VITALS: BP 116/57; PULSE 60; RESP 17; TEMP 98.9; O2SAT 93
== END 2025-02-04 17:45 | disposition home or self-care (01) | DRG 758 ==
LOC: ER 20:50 → EDUNIT# 20:50 → EDBD 20:50 → OVERFLOW 01-31 06:54 → WEST WING 01-31 10:24 → CENTRAL 01-31 15:45
PROVIDERS: ADMIT Internal Medicine; ATTEND Internal Medicine
DX: A64 Unspecified sexually transmitted disease (principal); I50.32 Chronic diastolic (congestive) heart failure; N13.6 Pyonephrosis; N30.00 Acute cystitis without hematuria; N95.2 Postmenopausal atrophic vaginitis; E78.5 Hyperlipidemia, unspecified; R73.03 Prediabetes; E03.9 Hypothyroidism, unspecified; F41.9 Anxiety disorder, unspecified; I11.0 Hypertensive heart disease with heart failure; I49.5 Sick sinus syndrome; Z95.0 Presence of cardiac pacemaker; Z87.440 Personal history of urinary (tract) infections; Z98.51 Tubal ligation status; Z90.49 Acquired absence of other specified parts of digestive tract; Z86.73 Personal history of transient ischemic attack (TIA), and cerebral infarction without residual deficits; Z85.819 Personal history of malignant neoplasm of unspecified site of lip, oral cavity, and pharynx; Z85.6 Personal history of leukemia; Z83.3 Family history of diabetes mellitus; Z82.49 Family history of ischemic heart disease and other diseases of the circulatory system; Z80.6 Family history of leukemia; Z63.4 Disappearance and death of family member; Z79.899 Other long term (current) drug therapy; E03.8 Other specified hypothyroidism
CPT/HCPCS: 36415; 71045; 74177; 76775; 80048; 80053; 80307; 81001; 82306; 82607; 83036; 83605; 83690; 83735; 84100; 84439; 84443; 84480; 85025; 86703; 86803; 87040; 87086; 87340; 93005; 96365; 96375; G0378; J2405

== ENCOUNTER 2025-02-17 15:12 | Inpatient (IN) | payer MEDICARE ==
[~2025-02-17] VITALS: Ht 160 cm; Wt 50.5 kg
[~2025-02-17 15:12] MED LIST changes: +ASPI-325 PO; +ATOR20TA50 PO; +FLUC150T47 PO; +HYDR-3682 PO; -LEVO500T31 PO; -MECL-90 PO; +MET500T PO; +NITR-87 PO; +PHEN-1045 PO
--- NOTE | 2025-02-17 15:25 | ED.PDOC ---
Altered Mental Status HPI Comments 75 y.o female presents to the ED via EMS for an evaluation of near syncopal episode at [facility] today. EMS reports patient was with daughter, began feeling unwell and sat on the floor. Daughter assisted patient to a furniture display to sit down, noticed she was pale, clammy, sweaty and had a near syncopal. On scene , patient has one episode of nonbilious non bloody emesis and continues to have nausea upon ED arrival. Patient complains of dizziness and still feeling "unwell" patient is unable to recall her trip to [facility] with daughter today. Per EMS, patient has a history of dementia, HTN, hyperlipidemia, CAD, and thyroid disease. Time Seen by MD: 15:18 Primary Care Provider: UNKNOWN Reviewed Notes: Nurses Notes, Sock Lining Examiner Notes, Medications, Allergies Allergies: Coded Allergies: Iodinated Diagnostic Agents (Verified Allergy, Mild, 12/12/16) Home Meds Active Scripts Nitrofurantoin Monohydrate Mac (Macrobid) 100 Mg Cap, 100 MG PO BID for 3 Days, #6 CAP Prov:ADELIA DE LEON RESIDENT 02/04/25 Atorvastatin Calcium (ATORVASTATIN CALCIUM) 20 Mg Tab, 40 MG PO HS for 30 Days, #60 TAB Prov:ADELIA DE LEON RESIDENT 02/04/25 Aspirin (Aspirin Low Dose) 81 Mg Tab, 81 MG PO DAILY for 30 Days, #30 TAB Prov:ADELIA DE LEON RESIDENT 02/04/25 Reported Medications Hydroxyzine Hcl (Hydroxyzine Hcl) 25 Mg Tab, 1 TAB PO QHSP PRN 01/31/25 Donepezil Hydrochloride (DONEPEZIL HCL) 10 Mg Tab, 10 MG PO DAILY, MG 06/18/21 Information Source: Patient, Emergency Med Personnel Mode of Arrival: EMS Severity: Moderate Timing: Hours Duration: Since onset Quality: Decreased Alertness Past Medical History PAST MEDICAL HISTORY: Anxiety, CHF, CVA, Dementia, High Lipids, HTN, Thyroid, UTI'S Surgical History: Cholecystectomy, , Pacemaker, Tubal Ligation [employer] History: No Pertinent [employer] History Family History Family History: Family hx of DM, Family hx of HTN Social History Smoker: Non-Smoker Alcohol: Denies ETOH Use Drugs: Denies Drug Use Lives In: Home Constitutional: denies: chills, diaphoresis, fatigue, fever, malaise, sweats, weakness, others EENTM: denies: blurred vision, double vision, ear bleeding, ear discharge, ear drainage, ear pain, ear ringing, eye pain, eye redness, hearing loss, mouth pain, mouth swelling, nasal discharge, nose bleeding, nose congestion, nose pain, photophobia, tearing, throat pain, throat swelling, voice changes, others Respiratory: denies: cough, hemoptysis, orthopnea, SOB at rest, shortness of breath, SOB with excertion, stridor, wheezing, others Cardiovascular: denies: chest pain, dizzy spells, diaphoresis, Dyspnea on exertion, edema, irregular heart beat, left arm pain, lightheadedness, palpitations, PND, syncope, others Gastrointestinal: reports: nausea, vomiting; denies: abdomen distended, abdominal pain, blood streaked bowels, constipated, diarrhea, dysphagia, difficulty swallowing, hematemesis, melena, poor appetite, poor fluid intake, rectal bleeding, rectal pain, others Genitourinary: denies: abnormal vagina bleeding, burning, dyspareunia, dysuria, flank pain, frequency, hematuria, incontinence, pain, , vagina discharge, urgency, others Neurological: reports: dizziness; denies: fainting, headache, left sided numbness, left sided weakness, numbness, paresthesia, pre-existing deficit, right sided numbness, right sided weakness, seizure, speech problems, tingling, tremors, weakness, others Musculoskeletal: denies: back pain, gout, joint pain, joint swelling, muscle pain, muscle stiffness, neck pain, others Integumetry: denies: bruises, change in color, change in hair/nails, dryness, laceration, lesions, lumps, rash, wounds, others Allergic/Immunocompromised: denies: Difficulty Healing, Frequent Infections, Hives, Itching, others Hematologic/Lymphatic: denies: anemia, blood clots, easy bleeding, easy bruising, swollen glands, others Endocrine: denies: excessive hunger, excessive sweating, excessive thirst, excessive urination, flushing, intolerance to cold, intolerance to heat, unexplained weight gain, unexplained weight loss, others Psychiatric: denies: anxiety, bipolar disorder, depression, hopeless, panic disorder, schizophrenia, sleepless, suicidal, others All Other Systems: Reviewed and Negative Physical Exam General Appearance: Moderate Distress HEENT: Normal ENT Inspection, Pharynx Normal, TMs Normal Neck: Full Range of Motion, Non-Tender, Normal, Normal Inspection Respiratory: Chest Non-Tender, Lungs Clear, No Accessory Muscle Use, No Respiratory Distress, Normal Breath Sounds Cardiovascular: No Edema, No JVD, No Murmur, No Gallop, Normal Peripheral Pulses, Regular Rate/Rhythm Breast Exam: Deferred Gastrointestinal: No Organomegaly, Non Tender, No Pulsatile Mass, Normal Bowel Sounds, Soft Genitalia: Deferred Pelvic: Deferred Rectal: Deferred Extremities: No calf tenderness, No pedal edema Musculoskeletal : Apperance: Normal Neurologic: Disoriented, No Motor Deficits, No Sensory Deficits Cerebellar Function: Normal Reflexes: NOT DONE Skin: Dry, Normal Color, Warm Peripheral Pulses: 3+ Radial (R), 3+ Radial (L) Lymphatic: No Adenopathy Was a procedure done? Was a procedure done?: No Differential Diagnosis (ALOC) Differential Diagnosis: Dehydration, Hypoglycemia, Hypoxemia, Closed Head Injury X-Ray, Labs, Meds, VS Vital Signs Date Time Temp Pulse Resp B/P (MAP) Pulse Ox O2 Delivery O2 Flow Rate FiO2 02/17/25 15:36 97.4 60 16 125/62 (83) 98 97.4 02/17/25 15:30 97.4 60 16 125/62 (83) 98 97.4 Lab Test 02/17/25 15:37 Range/Units White Blood Count 6.0 4.4-10.8 10^3/uL Red Blood Count 4.37 4.0-5.20 10^6/uL Hemoglobin 13.6 12.2-16.2 g/dL Hematocrit 40.4 36.0-46.0 % Mean Corpuscular Volume 92.4 80.0-100.0 fL Mean Corpuscular Hemoglobin 31.2 28.0-32.0 pg Mean Corpuscular Hemoglobin Concent 33.8 32.0-36.0 g/dL Red Cell Distribution Width 15.6 H 11.8-14.3 % Platelet Count 286 140-450 10^3/uL Mean Platelet Volume 9.2 6.9-10.8 fL Neutrophils (%) (Auto) 62.6 37.0-80.0 % Lymphocytes (%) (Auto) 29.0 10.0-50.0 % Monocytes (%) (Auto) 5.9 0.0-12.0 % Eosinophils (%) (Auto) 1.9 0.0-7.0 % Basophils (%) (Auto) 0.6 0.0-2.0 % Neutrophils # (Auto) 3.8 1.6-8.6 10 ^3/uL Lymphocytes # (Auto) 1.7 0.4-5.4 10 ^3/uL Monocytes # (Auto) 0.4 0-1.3 10 ^3/uL Eosinophils # (Auto) 0.1 0-0.8 10 ^3/uL Basophils # (Auto) 0 0-0.2 10 ^3/uL Nucleated Red Blood Cells 0.1 % Sodium Level Pending Potassium Level Pending Chloride Level Pending Carbon Dioxide Level Pending Anion Gap Pending Blood Urea Nitrogen Pending Creatinine Pending Glomerular Filtration Rate Calc Pending BUN/Creatinine Ratio Pending Serum Glucose Pending Calcium Level Pending Troponin I High Sensitivity Pending Patient disoriented. Syncopal episode. Vitals stable. Answering questions. WBC within normal limits. Hemoglobin within normal limits. Establish intravenous access. Was given fluids. Reviewed her visit. Waiting for family. Continue to monitor. Time of 1ST Reevaluation: 15:21 Reevaluation 1ST: Unchanged Patient Education/Counseling: Diagnosis, Treatment Family Education/Counseling: No Family Present Departure 1 Departure Time of Disposition: 16:13 Impression: Primary Impression: Metabolic encephalopathy Additional Impression: Syncope Qualified Codes: R55 - Syncope and collapse Disposition: ADMITTED INPATIENT Admit to: Med Surg Condition: Guarded Critical Care Note Critical Care Time?: No Stability Stability form required: No I personally scribed for JON DOMINGUEZ MD ([email or web address]) on 02/17/25 at 15:25. Electronically submitted by Nona Gillespie ([facility]). JON DOMINGUEZ MD Feb 17, 2025 15:25
[2025-02-17 15:50] LABS: Basophils # (auto) 0 10 ^3/uL (0-0.2); Basophils % (auto) 0.6 % (0.0-2.0); Eosinophils # (auto) 0.1 10 ^3/uL (0-0.8); Eosinophils % (auto) 1.9 % (0.0-7.0); Hematocrit 40.4 % (36.0-46.0); Hemoglobin 13.6 g/dL (12.2-16.2); Lymphocytes # (auto) 1.7 10 ^3/uL (0.4-5.4); Mean Corpuscular Hemoglobin 31.2 pg (28.0-32.0); Mean Corpuscular Hgb Conc. 33.8 g/dL (32.0-36.0); Mean Corpuscular Volume 92.4 fL (80.0-100.0); Monocytes # (auto) 0.4 10 ^3/uL (0-1.3); Monocytes % (auto) 5.9 % (0.0-12.0); Neutrophils # (auto) 3.8 10 ^3/uL (1.6-8.6); Neutrophils % (auto) 62.6 % (37.0-80.0); Nucleated Red Blood Cells % 0.1 %; Platelet Count (auto) 286 10^3/uL (140-450); Red Blood Cells 4.37 10^6/uL (4.0-5.20); Red Cell Distribution Width 15.6 % (11.8-14.3)
[2025-02-17 15:59] LABS: Potassium 4.5 mmol/L (3.5-5.1); Sodium 143 mmol/L (136-145)
[2025-02-17 16:00] LABS: Anion Gap 10 (5-15); Carbon Dioxide 26 mmol/L (20-31)
[2025-02-17 16:05] LABS: BUN/Creatinine Ratio 28.7 (10.0-20.0); Glucose 100 mg/dL (74-106)
[2025-02-17 16:16] LABS: Blood Urea Nitrogen 27 mg/dL (9-23); Calcium 10.5 mg/dL (8.7-10.4); Chloride 107 mmol/L (98-107)
--- NOTE | 2025-02-17 17:08 | DVH ---
CT brain without contrast CLINICAL INDICATION: Altered mental status FINDINGS: The study was performed in a multidetector scanner. This study performed taking axial image s from the skull base up to the vertex. Both brain and bone windows are photographed. Dose lowering techniques have been used including automated exposure control and adjustment of mA and /or KV according to patient size. Cortical sulcal markings are prominent. No intraparenchymal hemorrhage or edema No hydrocephalus or midline shift. No extra-axial fluid collections On bone windows no calvarial lesions. No paranasal sinus disease IMPRESSION: 1. Age-appropriate senescent changes. No acute intracranial pathology Computed Tomographic Radiation Dosimetry Report: Total CTDI vol = 50 mGy Total DLP = 797 mGy-cm All C T scans at this medical facility are performed using dose modulation techniques as appropriate to a p erformed exam including the following: Automated exposure control was utilized; adjustment of the MA and/or KvP according to patient size; and use of iterative reconstruction technique.
[2025-02-17 18:25] LABS: Urine Bacteria None Seen /hpf (None Seen)
[2025-02-17 19:04] LABS: Urine Blood Negative /uL (Negative); Urine Clarity Turbid (Clear); Urine Color Dark-Yellow (Yellow); Urine Hyaline Cast MOD /lpf (0 - 2); Urine Mucus FEW (None Seen); Urine Protein, UAD TRACE (Negative); Urine Squamous Epithelial Cell MOD /hpf (<5); Urine Urobilinogen 2 mg/dL (Negative); Urine WBC 4 /HPF (0-5); Urine pH 5.5 (5.0-9.0)
--- NOTE | 2025-02-17 22:15 | DVHHPRES ---
History of Present Illness Resident Creating Document: DB AGUAYO RESIDENT History of Present Illness Ms Rodrigues 25-year-old patient with past medical history of dementia, TIA 5 years back, pacemaker placement 5 years back who presented to the ER for the evaluation of a syncopal episode which happened on 02/17 at a grocery store. Patient is A&O times2 and therefore history taking was completed with for daughter at the ER. At around 3:00 p.m. patient was at a grocery store when she reported feeling sweaty, dizzy, cold and clammy, per the daughter who was there patient was flushed from had to the neck, her skin was red and immediately after within 30 seconds she fainted. Patient not experienced a fall. She was sat down on a chair where she gained consciousness within minute and woke up confused but did not experience any jerky movements or lose her urine or bowel. She experienced 1 episode of vomiting which was yellowish in color. Patient reports frequency, urgency and lower abdominal pain along with dysuria. Patient recently was diagnosed with vulvovaginitis 1.5 weeks ago and was given Flagyl and Pyridium for 10 days which she took it for the past 7 days by her PCP Dr. Zarate. Past medical/surgical history: See above Social history: Lives with daughter, denies smoking, drinking or illicit drug use Patient is in his recommended the bedside. CT head was unremarkable. Family History: None Smoke: No ALCOHOL: none Drugs: None Lives: with Family Review of Systems Constitutional: Yes: Sweats Gastrointestinal: Nausea, Vomiting, Abdominal Pain Genitourinary: Dysuria, Frequency Allergies: Coded Allergies: Iodinated Diagnostic Agents (Verified Allergy, Mild, 12/12/16) Exam Vital Signs Vital Signs Date Time Temp Pulse Resp B/P (MAP) Pulse Ox O2 Delivery O2 Flow Rate FiO2 02/17/25 15:36 97.4 60 16 125/62 (83) 98 97.4 Exam Patient lying in bed, in no acute distress General: Well-built, afebrile, palor, mucosae are moist Cardiovascular: Regular S1 and S2. No murmurs, gallops or rubs. No JVD elevation. No pedal edema Respiratory: Normal B/L air entry on room air. Clear lung sounds on auscultation Abdomen: Soft, nontender, nondistended, normoactive bowel sounds, no rebound tenderness, no organomegaly, no masses Genitourinary: Deferred MSK/skin: Mobilizes 4 limbs. Skin is dry and warm Neurological: No motor, no sensitive deficits, normal speech. Pupils are isocoric and reactive. Psych/Mental Status: A/Ox3 Labs/Xrays Labs Test 02/17/25 19:21 02/17/25 18:20 02/17/25 15:37 Range/Units Troponin I High Sensitivity 3 L </=34 ng/L Urine Color Dark-yellow Yellow Urine Clarity Turbid H Clear Urine pH 5.5 5.0-9.0 Urine Specific [place] 1.030 1.001-1.035 Urine Protein Trace H Negative Urine Ketones 1+ H Negative Urine Blood Negative Negative /uL Urine Nitrite Negative Negative Urine Bilirubin Negative Negative Urine Urobilinogen 2 H Negative mg/dL Urine Leukocyte Esterase Negative Negative /uL Urine RBC 2 0 - 4 /hpf Urine Microscopic WBC 4 0-5 /HPF Urine Squamous Epithelial Cells Mod <5 /hpf Urine Bacteria None seen None Seen /hpf Urine Hyaline Casts Mod 0 - 2 /lpf Urine Mucus Few None Seen Urine Glucose Normal Normal mg/dL White Blood Count 6.0 4.4-10.8 10^3/uL Red Blood Count 4.37 4.0-5.20 10^6/uL Hemoglobin 13.6 12.2-16.2 g/dL Hematocrit 40.4 36.0-46.0 % Mean Corpuscular Volume 92.4 80.0-100.0 fL Mean Corpuscular Hemoglobin 31.2 28.0-32.0 pg Mean Corpuscular Hemoglobin Concent 33.8 32.0-36.0 g/dL Red Cell Distribution Width 15.6 H 11.8-14.3 % Platelet Count 286 140-450 10^3/uL Mean Platelet Volume 9.2 6.9-10.8 fL Neutrophils (%) (Auto) 62.6 37.0-80.0 % Lymphocytes (%) (Auto) 29.0 10.0-50.0 % Monocytes (%) (Auto) 5.9 0.0-12.0 % Eosinophils (%) (Auto) 1.9 0.0-7.0 % Basophils (%) (Auto) 0.6 0.0-2.0 % Neutrophils # (Auto) 3.8 1.6-8.6 10 ^3/uL Lymphocytes # (Auto) 1.7 0.4-5.4 10 ^3/uL Monocytes # (Auto) 0.4 0-1.3 10 ^3/uL Eosinophils # (Auto) 0.1 0-0.8 10 ^3/uL Basophils # (Auto) 0 0-0.2 10 ^3/uL Nucleated Red Blood Cells 0.1 % Sodium Level 143 136-145 mmol/L Potassium Level 4.5 3.5-5.1 mmol/L Chloride Level 107 98-107 mmol/L Carbon Dioxide Level 26 20-31 mmol/L Anion Gap 10 5-15 Blood Urea Nitrogen 27 H 9-23 mg/dL Creatinine 0.94 0.550-1.02 mg/dL Glomerular Filtration Rate Calc 63 >90 mL/min BUN/Creatinine Ratio 28.7 H 10.0-20.0 Serum Glucose 100 74-106 mg/dL Calcium Level 10.5 H 8.7-10.4 mg/dL Assessment/Plan Assessment/Plan Syncopal episode, likely vasovagal, rule out cardiogenic causes History of vulvovaginitis diagnosed 1.5 weeks ago 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 No prior calculi noted on CT of 01/30/2025. 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 Follow up with CT abdomen with IV contrast Aspirin atorvastatin for history of TIA Pacemaker interrogation pending Vitamin B12/vitamin-D level pending Diet: NPO for CT Prophylaxis: SCDs given hematuria Plan discussed with patient and daughter at the ER in which all questions answered Goals of care discussed for more than 27 units, full code status Case discussed with Dr. Jara Plan discussed with: Patient Date of Service: Feb 17, 2025 Billing Provider: NOVA JARA MD Common Visit Codes: 63367-[id number] INP/OBS CARE (HIGH) Secondary Visit Codes: 52328-[id number] CARE PLAN 30 MINUTES DB AGUAYO RESIDENT Feb 17, 2025 22:15 NOVA JARA MD Feb 18, 2025 21:05
[2025-02-17 22:41] VITALS: PULSE 61; RESP 17; O2SAT 97
[2025-02-17] MEDS: SODIUM CHLORIDE 0.9% 1,000 ML IV ONE ×2 (22:47→22:56)
--- NOTE | 2025-02-18 02:30 | DVH ---
US KIDNEY HISTORY: r/o pyelo COMPARISON: US KIDNEY on DOS: 01/31/25 TECHNIQUE: Transverse and longitudinal grayscale and color Doppler images were obtained of the kidney s and bladder. FINDINGS: Right kidney measures 11.3 cm in length. Left kidney measures 9.9 cm length. Renal echotexture is pr eserved. No evidence of hydronephrosis. No solid or cystic sonographic mass. There is the appearance of multiple echogenic foci in the left kidney, no calculi noted on prior CT o f 01/30/2025 Bladder: Normal IMPRESSION: 1. Echogenic foci within the left kidney of unknown etiology. No prior calculi noted on CT of 025. 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 Consider repeat CT.
[2025-02-18 03:59] VITALS: PULSE 73; RESP 18; O2SAT 95
--- NOTE | 2025-02-18 04:01 | DVH ---
Carotid Duplex Date: 02/18/2025 12:50 AM Clinical History: syncop Comparison: None Technique: Duplex Doppler evaluation of the extracranial carotid and vertebral arteries including col or Doppler and spectral/pulsed waveform analysis was performed. Findings: Velocities and ratios within normal limits IMPRESSION: No hemodynamically significant stenosis noted in the right carotid system. No hemodynamically significant stenosis noted in the left carotid system. Reference: Radiology 2003; 229:340-346
[2025-02-18 04:18] LABS: Amphetamine Screen, Urine Neg (NEGATIVE)
[2025-02-18 04:19] LABS: Barbiturate Scree,Urine Neg (NEGATIVE); Benzodiazephine Screen, Urine Neg (NEGATIVE); Cannabinoid Screen, Urine Neg (NEGATIVE); Cocaine Screen, Urine Neg (NEGATIVE); Opiate Scree,Urine Pos (NEGATIVE); Phencyclidine Screen, Urine Neg (NEGATIVE)
[2025-02-18] MEDS: cefTRIAXone 1GM/50ML D5W 50 ML IV ONE (04:28)
[2025-02-18] MEDS: DONEPEZIL HYDROCHLORIDE 5 MG TAB PO ONE (04:28)
[2025-02-18] MEDS: ATORVASTATIN 20 MG TAB PO ONE (04:29)
[2025-02-18] MEDS: IOHEXOL 300 MG/ML 100ML BOTTLE IJ ONE (05:39)
--- NOTE | 2025-02-18 05:49 | DVH ---
EXAM: CT Abdomen and Pelvis With Intravenous Contrast CLINICAL INDICATION: 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 is CT exam was performed using one or more of the following dose reduction techniques: automated exp osure control, adjustment of the mA and/or kV according to patient size, and/or use of iterative katarina nstruction technique. CONTRAST: RADIATION DOSE: CTDIvol = 5.07 mGy, DLP = 243.96 mGy-cm COMPARISON: CT CT AB PEL WITH IV CON ONLY on DOS: 01/30/25 FINDINGS: LUNG BASES: Unremarkable. No mass. No consolidation. ABDOMEN: LIVER: Fatty infiltration of the liver. GALLBLADDER AND BILE DUCTS: Gallbladder is surgically absent. No ductal dilation. PANCREAS: Unremarkable. No mass. No ductal dilation. SPLEEN: Unremarkable. No splenomegaly. ADRENALS: Unremarkable. No mass. KIDNEYS AND URETERS: Renal cysts. No hydronephrosis. STOMACH AND BOWEL: Colonic diverticulosis without acute diverticulitis. No obstruction. PELVIS: APPENDIX: No findings to suggest acute appendicitis. BLADDER: Unremarkable. No mass. REPRODUCTIVE: Unremarkable as visualized. ABDOMEN and PELVIS: INTRAPERITONEAL SPACE: Unremarkable. No free air. No significant fluid collection. BONES/JOINTS: No acute fracture. No dislocation. SOFT TISSUES: Unremarkable. VASCULATURE: Unremarkable. No abdominal aortic aneurysm. LYMPH NODES: Unremarkable. No enlarged lymph nodes. OTHER FINDINGS: . . . . . . IMPRESSION: 1. No CT evidence of pyelonephritis. Clinical correlation is recommended. 2. Colonic diverticulosis without acute diverticulitis.
[2025-02-18 06:10] LABS: Basophils # (auto) 0 10 ^3/uL (0-0.2); Basophils % (auto) 0.8 % (0.0-2.0); Eosinophils # (auto) 0.1 10 ^3/uL (0-0.8); Eosinophils % (auto) 2.6 % (0.0-7.0); Hematocrit 33.8 % (36.0-46.0); Hemoglobin 11.3 g/dL (12.2-16.2); Lymphocytes # (auto) 1.8 10 ^3/uL (0.4-5.4); Lymphocytes % (auto) 34.8 % (10.0-50.0); Mean Corpuscular Hemoglobin 31.7 pg (28.0-32.0); Mean Corpuscular Hgb Conc. 33.6 g/dL (32.0-36.0); Mean Corpuscular Volume 94.5 fL (80.0-100.0); Monocytes # (auto) 0.3 10 ^3/uL (0-1.3); Monocytes % (auto) 6.6 % (0.0-12.0); Neutrophils # (auto) 2.9 10 ^3/uL (1.6-8.6); Neutrophils % (auto) 55.2 % (37.0-80.0); Platelet Count (auto) 243 10^3/uL (140-450); Red Blood Cells 3.57 10^6/uL (4.0-5.20); Red Cell Distribution Width 15.4 % (11.8-14.3); White Blood Cell 5.3 10^3/uL (4.4-10.8)
[2025-02-18 06:27] LABS: INR 1.04 (0.9-1.15); Partial Thromboplastin Time 24.9 SEC (24.5-34.5)
[2025-02-18 06:28] LABS: Alanine Aminotransferase 24 U/L (7-40); Albumin 3.9 g/dL (3.2-4.8); Alkaline Phosphatase 102 U/L (46-116); Anion Gap 8 (5-15); Aspartate Aminotransferase 18 U/L (13-40); BUN/Creatinine Ratio 27.4 (10.0-20.0); Blood Urea Nitrogen 20 mg/dL (9-23); Calcium 8.9 mg/dL (8.7-10.4); Carbon Dioxide 26 mmol/L (20-31); Chloride 105 mmol/L (98-107); Glucose 82 mg/dL (74-106); Magnesium 1.9 mg/dL (1.6-2.6); Potassium 3.6 mmol/L (3.5-5.1); Sodium 139 mmol/L (136-145); Total Protein 6.2 g/dL (5.7-8.2)
[2025-02-18 06:30] LABS: Bilirubin, Direct 0.5 mg/dL (<0.3); Bilirubin, Total 1.4 mg/dL (0.2-1.0)
[2025-02-18] MEDS: Ensure HIGH Protein Vanilla 8oz Bottle PO SCH (08:00)
[2025-02-18] MEDS: PANTOPRAZOLE 40 MG/10 ML VIAL INJ IV ONE (09:21)
[2025-02-18] MEDS: CYANOCOBALAMIN (B-12) 1000 MCG/1 ML VIAL IM ONE (09:21)
[2025-02-18] MEDS ORDERED: ENOXAPARIN SOD 40 MG/0.4 ML SYRINGE SC SCH (10:00)
--- NOTE | 2025-02-18 10:15 | ECG ---
[facility] Test Date: 2025-02-17 Test Time: 15:14:09 Pat Name: JAZLYN FRANCIS Department: ED Room: 0278T Gender: F Dope Weigh Operator: NANNETTE : 1950 Requested By: DB AGUAYO Order Number: [id number] Reading MD: Payam Lopez Measurements Intervals Liberal Rate: 60 P: 0 CA: 191 QRS: -17 QRSD: 79 T: 43 QT: 439 QTc: 439 Interpretive Statements Atrial-paced rhythm Borderline left axis deviation Low voltage, precordial leads Electronically Signed On 02-19-2025 13:07:27 PDT by Payam Lopez Please click the below link to view image of tracing.
[2025-02-18] MEDS: ASPirin 81 mg TAB PO SCH (10:21)
[2025-02-18] MEDS: ENOXAPARIN SOD 40 MG/0.4 ML SYRINGE SC SCH (10:21)
[2025-02-18] MEDS: DONEPEZIL HYDROCHLORIDE 5 MG TAB PO SCH (12:31)
[2025-02-18] MEDS: SODIUM CHLORIDE 0.9% 1,000 ML IV ONE (12:34)
[2025-02-18] MEDS ORDERED: cefTRIAXone 1GM/50ML D5W 50 ML IV SCH (13:00)
--- NOTE | 2025-02-18 13:40 | DVH ---
EXAM: XY CHEST PORTABLE HISTORY: PNA COMPARISON: XY CHEST PORTABLE on DOS: 02/01/25, CHEST XRAY 1 VIEW on DOS: 06/23/21, CHEST PORTABLE on DO S: 06/22/21 TECHNIQUE: Portable AP view of the chest was performed. FINDINGS: No pneumothorax, consolidative infiltrates, or pulmonary edema. The heart is not enlarged. Left chest pacemaker is re-identified. IMPRESSION: No acute intrathoracic process.
[2025-02-18 14:15] LABS: COVID19 ANTIGEN SOFIA FIA NEGATIVE (NEGATIVE); Rapid Influenza A Negative (Negative); Rapid Influenza B Negative (Negative)
--- NOTE | 2025-02-18 14:52 | DVHPNRES ---
Progress Note Date Seen: Feb 18, 2025 Resident Creating Document: ESTEBAN BOATENG RESIDENT Medical Necessity Reason Pt with a Central, PICC or Fol: No Subjective Review of Systems HPI-patient is 75 years old female with past medical history of Hypertension, dyslipidemia, prediabetic, anxiety, frequent UTIs, CVA with dementia, hypothyroidism, frequent UTIs, sick sinus syndrome status post permanent pacemaker placement, CHF was brought in by EMS due to syncopal attack. Wider gathered information after talking to patient's daughter Karishma, and reviewing chart. As per patient's daughter patient went for grocery store when she was feeling unusual, feeling tired, told daughter that I am feeling weird and daughter noticed she was having flush in the face and arms and body. Following that patient passed out for less than 1 minute. Patient's daughter hold 104 sit on a chair, no history of fall or trauma to the head. As per daughter upon regaining consciousness with the patient was little bit confused had nausea and vomiting once with bile content, no blood. As per daughter patient has a lives appetite in last couple of days where she was eating or drinking less. Denied any fever, acute joint pain or swelling. CTA negative for acute intracranial pathology, CT abdomen revealed diverticulosis with a diverticulitis, no acute pyelonephritis. Urinalysis negative for UTI. Patient tested negative for COVID and influenza type A and B. Past medical history: Hypertension, dyslipidemia, prediabetic, anxiety, frequent UTIs, CVA with dementia, hypothyroidism, frequent UTIs, sick sinus syndrome status post permanent pacemaker placement, CHF Surgical history: Cholecystectomy, , bilateral tubal ligation, permanent pacemaker placement. Family history: Both parents deseased , grandmother leukemia Social history: Lives with family, daughter Kashif is blnen-xa-fuyqezlf. three years ago, per daughter cheated on patient, never had STD testing. Denies current tobacco, alcohol and other drug abuse Allergies: Iodinated agents Home medication: Donepezil 10 mg p.o. daily, hydroxyzine 25 mg p.o. daily, Patient was seen today at the bedside. Patient with dementia, patient is a poor historian, patient complained of vaginal pain. Patient was seen today for clinical evaluation. Labs and chart reviewed. Patient complained of vaginal pain. Patient with a history of UTI and atrophic vaginitis. Ordered Gynecology consult for further evaluation and care. Provider spoke to patient's daughter Karishma, discussed patient's current medical condition and plan of care and answered her question. Ordered orthostatic vitals for further evaluation and care. Objective vital signs Vital Sign Date Time Temp Pulse Resp B/P (MAP) Pulse Ox O2 Delivery O2 Flow Rate FiO2 02/18/25 12:39 67 02/18/25 10:28 14 135/47 (76) 95 02/18/25 08:00 Room Air* 0 21 02/18/25 06:57 97.7 97.7 Total Intake and Output 02/17/25 02/17/25 02/18/25 15:00 23:00 07:00 Intake Total 1000 ml Balance 1000 ml medications Current Medications Medications Dose Ordered Sig/Tai Route Start Time Stop Time Status Last Admin Dose Admin Acetaminophen 500 mg Q4HPRN PRN PO 02/18/25 00:30 Enteral Nutritional Formula 240 ml TIDWM PO 02/18/25 08:00 02/18/25 13:58 240 ML Aspirin 81 mg DAILY PO 02/18/25 10:00 02/18/25 10:21 81 MG Atorvastatin Calcium 40 mg HS PO 02/18/25 22:00 Donepezil HCl 10 mg HS PO 02/18/25 22:00 02/18/25 12:31 10 MG Enoxaparin Sodium 40 mg DAILY SC 02/18/25 10:00 02/18/25 10:21 40 MG Pantoprazole Sodium 40 mg DAILY IV 02/19/25 10:00 Acetaminophen/ Hydrocodone Bitart 1 tab Q6HPRN PRN PO 02/18/25 14:45 UNV Examination General examination- patient with confusion, patient was history of dementia HEENT- PEERLA, no acute nasal discharge Cardiovascular- S1-S2 audible, rate and rhythm regular, no murmur Respiratory- CTAB, no wheeze or rhonchi Gastrointestinal-nontender, bowel sound+. Nondistended Musculoskeletal-no acute joint swelling or tenderness or redness Lower extremity- no leg edema Neurological- cranial nerves intact, no acute dysarthria or dysphagia Psychiatry- denies depression or SI or HI Skin- no acute rash or purpura laboratory and microbiology Laboratory Tests 02/18/25 05:37 Test 02/18/25 05:37 Range/Units Serum Glucose 82 74-106 mg/dL Problem List/Assessment/Plan Problem List/Assessment/Plan Assessment and plan #Syncope rule out TIA/cardiac arrhythmia/orthostatic hypotension/dehydration -CTA negative for acute intracranial pathology -carotid Doppler negative for carotid artery stenosis -ordered orthostatic vitals -IV fluid as prescribed -continue current management # vaginal pain likely due to atrophic vulvovaginitis -ordered Gynecology consult for further evaluation and care #Hypertension, -monitor vitals #dyslipidemia, -atorvastatin 40 mg p.o. q.h.s. # prediabetic, #anxiety, #CVA with dementia, -donepezil 10 mg p.o. q.h.s. # hypothyroidism #frequent UTIs, -urinalysis negative for acute UTI #sick sinus syndrome status post permanent pacemaker placement, #CHF -continue monitoring Goals of care, Code status ; discussed with >15 minutes PUD prophylaxis: Pantoprazole DVT prophylaxis: Lovenox Plan discussed with Dr. Jordan , nursing staff, Total time spent on patient evaluation, chart review, assessment and plan, discussion discussion >35 minutes Plan discussed with: Patient, Daughter, Other (RN) My Orders My Orders Orders - ESTEBAN BOATENG Procedure Category Date Status Time Enoxaparin Sodium PHA 02/18/25 In Process (Lovenox) 10:00 Pantoprazole PHA 02/19/25 In Process (Protonix) 10:00 Full Liq Diet DIET 02/18/25 Transmitted Lunch Orthostatic Vital ORDERS 02/18/25 Transmitted Signs 11:59 Chest Portable XY 02/18/25 Resulted 12:55 Pt Request For Service PT 02/18/25 Logged 12:56 Communication Order ORDERS 02/18/25 Transmitted 12:59 * Photo Lab Specialist Consultation CONS 02/18/25 Transmitted 14:36 Lorazepam 2mg/Ml Inj PHA 02/18/25 Logged (Ativan Inj) 14:45 Hydrocodone-Acet PHA 02/18/25 Logged 5/325mg Tab ([place] 14:45 ESTEBAN BOATENG RESIDENT Feb 18, 2025 14:52
[2025-02-18] MEDS: LORazepam 2MG/ML-1ML VIAL IM ONE (15:02)
[2025-02-18] MEDS: HYDROcodone-ACET 5/325MG TAB PO PRN (15:19)
--- NOTE | 2025-02-18 16:16 | DVHSR ---
APPROVED REPORT EXAM: Two-dimensional and M-mode echocardiogram with Doppler and color Doppler. Blood Pressure: 132/51 mmHg INDICATION Syncope Surgery/Intervention Pacemaker: RISK FACTORS Height: 5'3, Weight: 105 DIMENSIONS LVDd3.6 (3.8-5.7cm)LA (2D)3.0 (1.9-4.0cm)Aortic Root3.0 (2.0-3.7cm) LVDs2.6 (2.5-4.0cm)LA (MM) (1.9-4.0cm)Aortic Cusp Exc1.2 (1.5-2.0cm) EF (%) 55.0 (55-70%)Rt. Atrium2.8 (1.9-4.0cm)Asc. Aorta cm IVSd0.8 (0.7-1.1cm)RV (D) (1.8-2.4cm) PWd0.8 (0.7-1.1cm) Mitral Valve MitralMitral Stenosis E wave0.70m/sMV Mean GR.mmHg A wave0.94m/sMV Peak GR.63mmHg E/A ratio0.72D MVAcm2 DECEL [id number] 1/2 [place] Aortic Valve Aortic ValveAortic Stenosis V11.00m/Stephie Mean GR.3mmHg V21.19m/Stephie Peak GR.6mmHg LVOT Diameter1.8 (1.8-2.4cm)Doppler AVA2.14cm2 Pulmonic Valve V20.86m/s Tricuspid Valve TR Velocity2.59m/s [id number] Conclusion LVEF normal, 55-60% RV function normal Likely catheter tip in right atrium vs prominant eustachian
[2025-02-18 19:38] VITALS: PULSE 70; RESP 15; O2SAT 97
[2025-02-18 21:40] VITALS: BP_SYST 102; BP_SYST 92; BP_SYST 99; BP_DIAS 42; BP_DIAS 57; PULSE 78; PULSE 82; PULSE 91; RESP 19; TEMP 98.1; O2SAT 92; O2SAT 95; O2SAT 96
[2025-02-18 22:13] VITALS: PULSE 76; RESP 16
[2025-02-18] MEDS: ATORVASTATIN 20 MG TAB PO SCH (23:10)
[2025-02-19] VITALS (9 sets, daily range): BP systolic 94–131; BP diastolic 41–66; PULSE 60–99; RESP 16–18; TEMP 97.6–98; O2SAT 94–98
[2025-02-19 06:26] LABS: Calcium 9.4 mg/dL (8.7-10.4); Potassium 3.8 mmol/L (3.5-5.1)
[2025-02-19 06:27] LABS: Anion Gap 7 (5-15); Carbon Dioxide 28 mmol/L (20-31)
[2025-02-19 06:31] LABS: Chloride 110 mmol/L (98-107); Sodium 145 mmol/L (136-145)
[2025-02-19 06:32] LABS: BUN/Creatinine Ratio 26.2 (10.0-20.0); Blood Urea Nitrogen 16 mg/dL (9-23); Glucose 79 mg/dL (74-106)
[2025-02-19 06:33] LABS: Magnesium 1.8 mg/dL (1.6-2.6)
--- NOTE | 2025-02-19 10:23 | ECG ---
[facility] Test Date: 2025-02-18 Test Time: 10:38:15 Pat Name: JAZLYN FRANCIS Department: ER Room: [facility]8T B Gender: F Infant Teacher: DAVID : 1950 Requested By: JON DOMINGUEZ Order Number: [id number] Reading MD: Payam Lopez Measurements Intervals Cascade Rate: 60 P: 0 TX: 191 QRS: 10 QRSD: 78 T: 45 QT: 434 QTc: 434 Interpretive Statements Atrial-paced rhythm Electronically Signed On 02-19-2025 13:15:10 PDT by Payam Lopez Please click the below link to view image of tracing.
[2025-02-19] MEDS: PANTOPRAZOLE 40 MG/10 ML VIAL INJ IV SCH (10:25)
[2025-02-19] MEDS: FLUCONAZOLE 100 MG TAB PO ONE (12:49)
[2025-02-19] MEDS: NYSTATIN TOPICAL CREAM 15GM TOP PRN (13:37)
--- NOTE | 2025-02-19 14:55 | DVHDSRES ---
Discharge Summary Date of Admission Resident Creating Document: ESTEBAN BOATENG RESIDENT Feb 17, 2025 at 22:14 Date of Discharge: Feb 19, 2025 Admitting Diagnosis Syncope, rule out CVA or cardiac arrhythmia Labs/Diagnostic Data: Laboratory Results Test 02/19/25 04:56 02/18/25 12:05 02/18/25 05:37 02/17/25 19:21 Sodium Level 145 mmol/L (136-145) Potassium Level 3.8 mmol/L (3.5-5.1) Chloride Level 110 mmol/L (98-107) Carbon Dioxide Level 28 mmol/L (20-31) Anion Gap 7 (5-15) Blood Urea Nitrogen 16 mg/dL (9-23) Creatinine 0.61 mg/dL (0.550-1.02) Glomerular Filtration Rate Calc 93 mL/min (>90) BUN/Creatinine Ratio 26.2 (10.0-20.0) Serum Glucose 79 mg/dL (74-106) Calcium Level 9.4 mg/dL (8.7-10.4) Magnesium Level 1.8 mg/dL (1.6-2.6) Influenza Type A Antigen Negative (Negative) Influenza Type B Antigen Negative (Negative) SARS-CoV-2 Antigen (Rapid) Negative (NEGATIVE) White Blood Count 5.3 10^3/uL (4.4-10.8) Red Blood Count 3.57 10^6/uL (4.0-5.20) Hemoglobin 11.3 g/dL (12.2-16.2) Hematocrit 33.8 % (36.0-46.0) Mean Corpuscular Volume 94.5 fL (80.0-100.0) Mean Corpuscular Hemoglobin 31.7 pg (28.0-32.0) Mean Corpuscular Hemoglobin Concent 33.6 g/dL (32.0-36.0) Red Cell Distribution Width 15.4 % (11.8-14.3) Platelet Count 243 10^3/uL (140-450) Mean Platelet Volume 9.2 fL (6.9-10.8) Neutrophils (%) (Auto) 55.2 % (37.0-80.0) Lymphocytes (%) (Auto) 34.8 % (10.0-50.0) Monocytes (%) (Auto) 6.6 % (0.0-12.0) Eosinophils (%) (Auto) 2.6 % (0.0-7.0) Basophils (%) (Auto) 0.8 % (0.0-2.0) Neutrophils # (Auto) 2.9 10 ^3/uL (1.6-8.6) Lymphocytes # (Auto) 1.8 10 ^3/uL (0.4-5.4) Monocytes # (Auto) 0.3 10 ^3/uL (0-1.3) Eosinophils # (Auto) 0.1 10 ^3/uL (0-0.8) Basophils # (Auto) 0 10 ^3/uL (0-0.2) Nucleated Red Blood Cells 0.0 % Prothrombin Time 11.0 sec (9.3-11.8) Prothrombin Time INR 1.04 (0.9-1.15) Activated Partial Thromboplast Time 24.9 SEC (24.5-34.5) Total Bilirubin 1.4 mg/dL (0.2-1.0) Direct Bilirubin 0.5 mg/dL (<0.3) Aspartate Amino Transferase (AST) 18 U/L (13-40) Alanine Aminotransferase (ALT) 24 U/L (7-40) Alkaline Phosphatase 102 U/L (46-116) Total Protein 6.2 g/dL (5.7-8.2) Albumin 3.9 g/dL (3.2-4.8) Vitamin B12 Level 369 pg/mL (211-911) Vitamin D 25-Hydroxy 53.6 ng/mL (30.0-100) Folic Acid 20.85 ng/mL (>5.38) Thyroid Stimulating Hormone (TSH) 4.62 uIU/mL (0.55-4.78) Troponin I High Sensitivity 3 ng/L (</=34) Test 02/17/25 18:20 Urine Color Dark-yellow (Yellow) Urine Clarity Turbid (Clear) Urine pH 5.5 (5.0-9.0) Urine Specific [place] 1.030 (1.001-1.035) Urine Protein Trace (Negative) Urine Ketones 1+ (Negative) Urine Blood Negative /uL (Negative) Urine Nitrite Negative (Negative) Urine Bilirubin Negative (Negative) Urine Urobilinogen 2 mg/dL (Negative) Urine Leukocyte Esterase Negative /uL (Negative) Urine RBC 2 /hpf (0 - 4) Urine Microscopic WBC 4 /HPF (0-5) Urine Squamous Epithelial Cells Mod /hpf (<5) Urine Bacteria None seen /hpf (None Seen) Urine Hyaline Casts Mod /lpf (0 - 2) Urine Mucus Few (None Seen) Urine Glucose Normal mg/dL (Normal) Urine Opiates Screen Pos (NEGATIVE) Urine Fentanyl Screen Neg (NEGATIVE) Urine Barbiturates Screen Neg (NEGATIVE) Urine Phencyclidine Screen Neg (NEGATIVE) Urine Amphetamines Screen Neg (NEGATIVE) Urine Benzodiazepines Screen Neg (NEGATIVE) Urine Cocaine Screen Neg (NEGATIVE) Urine Cannabinoids Screen Neg (NEGATIVE) Other Laboratory Tests 02/19/25 04:56 02/18/25 05:37 Brief Hx & Hospital Course: HPI-patient is 75 years old female with past medical history of Hypertension, dyslipidemia, prediabetic, anxiety, frequent UTIs, CVA with dementia, hypothyroidism, frequent UTIs, sick sinus syndrome status post permanent pacemaker placement, CHF was brought in by EMS due to syncopal attack. Wider gathered information after talking to patient's daughter Karishma, and reviewing chart. As per patient's daughter patient went for grocery store when she was feeling unusual, feeling tired, told daughter that I am feeling weird and daughter noticed she was having flush in the face and arms and body. Following that patient passed out for less than 1 minute. Patient's daughter hold 104 sit on a chair, no history of fall or trauma to the head. As per daughter upon regaining consciousness with the patient was little bit confused had nausea and vomiting once with bile content, no blood. As per daughter patient has a lives appetite in last couple of days where she was eating or drinking less. Denied any fever, acute joint pain or swelling. CTA negative for acute intracranial pathology, CT abdomen revealed diverticulosis with a diverticulitis, no acute pyelonephritis. Urinalysis negative for UTI. Patient tested negative for COVID and influenza type A and B. Echo 2D revealed LVEF 50- 60%, RV function normal. Hospital course-patient is 75 years old female with past medical history of Hypertension, dyslipidemia, prediabetic, anxiety, frequent UTIs, CVA with dementia, hypothyroidism, frequent UTIs, sick sinus syndrome status post permanent pacemaker placement, CHF was brought in by EMS due to syncopal attack. Wider gathered information after talking to patient's daughter Karishma, and reviewing chart. As per patient's daughter patient went for grocery store when she was feeling unusual, feeling tired, told daughter that I am feeling weird and daughter noticed she was having flush in the face and arms and body. Following that patient passed out for less than 1 minute. Patient's daughter hold 104 sit on a chair, no history of fall or trauma to the head. As per daughter upon regaining consciousness with the patient was little bit confused had nausea and vomiting once with bile content, no blood. As per daughter patient has a lives appetite in last couple of days where she was eating or drinking less. Denied any fever, acute joint pain or swelling. CTA negative for acute intracranial pathology, CT abdomen revealed diverticulosis with a diverticulitis, no acute pyelonephritis. Urinalysis negative for UTI. Patient tested negative for COVID and influenza type A and B. Echo 2D revealed LVEF 50-60%, RV function normal. Patient was seen by jockey's agent, recommendation reviewed and appreciated. Ordered nystatin apply locally for vulvovaginitis. patient was treated conservatively and symptoms improved. Patient is being discharged home with the recommendation to resume home medication. Ordered Zofran q.6h PRN for nausea. Patient was hemodynamically stable on discharge. Assessment #Syncope likely due to vasovagal backyard syncope/dehydration -ruled out acute cardiac arrhythmia, ruled out acute CVA # vaginal pain likely due to atrophic vulvovaginitis #Hypertension #dyslipidemia, # prediabetic, #anxiety, #CVA with dementia,. # hypothyroidism #frequent UTIs, #sick sinus syndrome status post permanent pacemaker placement, #CHF Plan Zofran 4 mg p.o. q.6h PRN Nystatin ointment applied locally as prescribed Please resume home medications Avoid dehydration and nephrotoxic drugs Please follow up with the primary care physician in 1 week Please follow up with the jockey's agent for further evaluation and care of vulvovaginitis Operations or Procedures [address] [address] Ph: [phone] DIAGNOSTIC IMAGING Diagnostic Imaging Report : [id number] Signed PATIENT: JAZLYN FRANCSIACCT: [id number] UNIT: [id number] : 1950 LOC: OVERFLOW ROOM / BED: [address] [place] [address] / A AGE / SEX: 75 / F ADM STATUS: ADM IN SERVICE 1255 ORDERING PHYSICIAN: ESTEBAN BOATENG PROCEDURE(s): CXRP - CHEST PORTABLE REASON: ?PNA ORDER NUMBER(s): [id number], ACCESSION NUMBER(s): [id number] EXAM: XY CHEST PORTABLE HISTORY: PNA COMPARISON: XY CHEST PORTABLE on DOS: 02/01/25, CHEST XRAY 1 VIEW on DOS: 06/23/21, CHEST PORTABLE on DOS: 06/22/21 TECHNIQUE: Portable AP view of the chest was performed. FINDINGS: No pneumothorax, consolidative infiltrates, or pulmonary edema. The heart is not enlarged. Left chest pacemaker is re-identified. IMPRESSION: No acute intrathoracic process. 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 This CT exam was performed using one or more of the following dose reduction techniques: automated exposure control, adjustment of the mA and/or kV according to patient size, and/or use of iterative reconstruction technique. CONTRAST: RADIATION DOSE: CTDIvol = 5.07 mGy, DLP = 243.96 mGy-cm COMPARISON: CT CT AB PEL WITH IV CON ONLY on DOS: 01/30/25 FINDINGS: LUNG BASES: Unremarkable. No mass. No consolidation. ABDOMEN: LIVER: Fatty infiltration of the liver. GALLBLADDER AND BILE DUCTS: Gallbladder is surgically absent. No ductal dilation. PANCREAS: Unremarkable. No mass. No ductal dilation. SPLEEN: Unremarkable. No splenomegaly. ADRENALS: Unremarkable. No mass. KIDNEYS AND URETERS: Renal cysts. No hydronephrosis. STOMACH AND BOWEL: Colonic diverticulosis without acute diverticulitis. No obstruction. PELVIS: APPENDIX: No findings to suggest acute appendicitis. BLADDER: Unremarkable. No mass. REPRODUCTIVE: Unremarkable as visualized. ABDOMEN and PELVIS: INTRAPERITONEAL SPACE: Unremarkable. No free air. No significant fluid collection. BONES/JOINTS: No acute fracture. No dislocation. SOFT TISSUES: Unremarkable. VASCULATURE: Unremarkable. No abdominal aortic aneurysm. LYMPH NODES: Unremarkable. No enlarged lymph nodes. OTHER FINDINGS: . . . . . . IMPRESSION: 1. No CT evidence of pyelonephritis. Clinical correlation is recommended. 2. Colonic diverticulosis without acute diverticulitis. ATED BY: ANNE ALATORRE MD DICTATED DATE/TIME: 02/18/25545 SIGNED BY: ANNE ALATORRE MD SIGNED DATE/TIME: 02/18/25545 CC: [place] [address] Ph: [phone] DIAGNOSTIC IMAGING Diagnostic Imaging Report : [id number] Signed PATIENT: JAZLYN FRANCISACCT: [id number] UNIT: [id number] : 1950 LOC: OVERFLOW ROOM / BED: 1023-ERT / A AGE / SEX: 75 / F ADM STATUS: ADM IN SERVICE ORDERING PHYSICIAN: DB AGUAYO RESIDENT PROCEDURE(s): KIDUS - KIDNEY REASON: r/o pyelo ORDER NUMBER(s): [id number], ACCESSION NUMBER(s): [id number] US KIDNEY HISTORY: r/o pyelo COMPARISON: US KIDNEY on DOS: 01/31/25 TECHNIQUE: Transverse and longitudinal grayscale and color Doppler images were obtained of the kidneys and bladder. FINDINGS: Right kidney measures 11.3 cm in length. Left kidney measures 9.9 cm length. Renal echotexture is preserved. No evidence of hydronephrosis. No solid or cystic sonographic mass. There is the appearance of multiple echogenic foci in the left kidney, no calculi noted on prior CT of 01/30/2025 Bladder: Normal IMPRESSION: 1. Echogenic foci within the left kidney of unknown etiology. No prior calculi noted on CT of 01/30/2025. 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 Consider repeat CT. ATED BY: ROSHAN BEGUM MD DICTATED DATE/TIME: 02/18/25226 SIGNED BY: ROSHAN BEGUM MD SIGNED DATE/TIME: 02/18/25226 CC: [place] [address] Ph: [phone] DIAGNOSTIC IMAGING Diagnostic Imaging Report : [id number] Signed PATIENT: JAZLYN FRANCISACCT: [id number] UNIT: [id number] : 1950 LOC: OVERFLOW ROOM / BED: [address] [place] [address] AGE / SEX: 75 / F ADM STATUS: ADM IN SERVICE ORDERING PHYSICIAN: DB AGUAYO RESIDENT PROCEDURE(s): CARCL - CAROTID DUPLX W COLOR DOP REASON: syncop ORDER NUMBER(s): [id number], ACCESSION NUMBER(s): [id number] Carotid Duplex Date: 02/18/2025 12:50 AM Clinical History: syncop Comparison: None Technique: Duplex Doppler evaluation of the extracranial carotid and vertebral arteries including color Doppler and spectral/pulsed waveform analysis was performed. Findings: Velocities and ratios within normal limits IMPRESSION: No hemodynamically significant stenosis noted in the right carotid system. No hemodynamically significant stenosis noted in the left carotid system. Reference: Radiology 2003; 229:340-346 ATED BY: RC CHENEY MD DICTATED DATE/TIME: 02/18/25357 SIGNED BY: RC CHENEY MD SIGNED DATE/TIME: 02/18/25357 CC: [place] [address] Ph: [phone] DIAGNOSTIC IMAGING Diagnostic Imaging Report : [id number] Signed PATIENT: FABY FRANCIST: [id number] UNIT: [id number] : 1950 LOC: ER ROOM / BED: / AGE / SEX: 75 / F ADM STATUS: REG ER SERVICE 1521 ORDERING PHYSICIAN: JON DOMINGUEZ MD PROCEDURE(s): HWOCT - HEAD WITHOUT CONTRAST REASON: altered ORDER NUMBER(s): [id number], ACCESSION NUMBER(s): [id number] CT brain without contrast CLINICAL INDICATION: Altered mental status FINDINGS: The study was performed in a multidetector scanner. This study performed taking axial images from the skull base up to the vertex. Both brain and bone windows are photographed. Dose lowering techniques have been used including automated exposure control and adjustment of mA and/or KV according to patient size. Cortical sulcal markings are prominent. No intraparenchymal hemorrhage or edema No hydrocephalus or midline shift. No extra-axial fluid collections On bone windows no calvarial lesions. No paranasal sinus disease IMPRESSION: 1. Age-appropriate senescent changes. No acute intracranial pathology Computed Tomographic Radiation Dosimetry Report: Total CTDI vol = 50 mGy Total DLP = 797 mGy-cm All CT scans at this medical facility are performed using dose modulation techniques as appropriate to a performed exam including the following: Automated exposure control was utilized; adjustment of the MA and/or KvP according to patient size; and use of iterative reconstruction technique. ATED BY: PAGE GARIBAY MD DICTATED DATE/TIME: 02/17/251705 SIGNED BY: PAGE GARIBAY MD SIGNED DATE/TIME: 02/17/251705 CC: Condition at Discharge: Stable Final Diagnosis/Problems List #Syncope likely due to vasovagal backyard syncope/dehydration -ruled out acute cardiac arrhythmia, ruled out acute CVA # vaginal pain likely due to atrophic vulvovaginitis #Hypertension #dyslipidemia, # prediabetic, #anxiety, #CVA with dementia,. # hypothyroidism #frequent UTIs, #sick sinus syndrome status post permanent pacemaker placement, #CHF Discharge Disposition: Home Discharge Instruct/Medications Follow Up/Referral: Please resume home medications Avoid dehydration and nephrotoxic drugs Please follow up with the primary care physician in 1 week Medications: Zofran 4 mg p.o. q.6h PRN Nystatin ointment applied locally as prescribed Please resume home medications Avoid dehydration and nephrotoxic drugs Please follow up with the primary care physician in 1 week Please follow up with the jockey's agent for further evaluation and care of vulvovaginitis Discharge Statement: "Patient was advised to return to the ER or call 911 if any headaches, dizziness, shortness of breath, chest pain, abdominal pain, bleeding, fevers, or worsening of medical condition. Patient was counseled about treatment plan, medications, possible side effects, patientverbalized understanding. All questions were answered to the best of my ability. This discharge took greater then 30 minutes in planning, reviewing documentation, counseling the patient, and discussing with other team members." ASSESSMENT ASSESSMENT Assessment ESTEBAN BOATENG RESIDENT Feb 19, 2025 14:55
--- NOTE | 2025-02-19 16:06 | DVHINCON2 ---
Date of service: Feb 19, 2025 Referring Physician hospitalist Reason for Consultation vag pain and vulvar vaginitis History of Present Illness pt is admitted for aloc,she has dementia .pt is not able to give full hx. she has complained of vag pain and dc times one month Past Medical History htn,chf,dementia,cad,thyroid ds Past Surgical History cholecystectomy,cs,tubal and pace maker Family History na Social History na Patient Family History: Aplastic anemia G8 MOTHER FH: leukemia G8 MOTHER FH: throat cancer G8 FATHER Allergies: Coded Allergies: Iodinated Diagnostic Agents (Verified Allergy, Mild, 12/12/16) Home Meds Active Scripts Nitrofurantoin Monohydrate Mac (Macrobid) 100 Mg Cap, 100 MG PO BID for 3 Days, #6 CAP Prov:ADELIA DE LEON RESIDENT 02/04/25 Atorvastatin Calcium (ATORVASTATIN CALCIUM) 20 Mg Tab, 40 MG PO HS for 30 Days, #60 TAB Prov:ADELIA DE LEON RESIDENT 02/04/25 Aspirin (Aspirin Low Dose) 81 Mg Tab, 81 MG PO DAILY for 30 Days, #30 TAB Prov:ADELIA DE LEON RESIDENT 02/04/25 Reported Medications Hydroxyzine Hcl (Hydroxyzine Hcl) 25 Mg Tab, 1 TAB PO QHSP PRN 01/31/25 Donepezil Hydrochloride (DONEPEZIL HCL) 10 Mg Tab, 10 MG PO DAILY, MG 06/18/21 Current Medications Current Medications Medications (Trade) Dose Ordered Sig/Tai Route PRN Reason Start Time Stop Time Status Last Admin Atorvastatin Calcium (Lipitor) 40 mg HS PO 02/18/25 22:00 02/18/25 23:10 Donepezil HCl (Aricept Tablet) 10 mg HS PO 02/18/25 22:00 02/18/25 12:31 Pantoprazole Sodium (Protonix) 40 mg DAILY IV 02/19/25 10:00 02/19/25 10:25 Nystatin (Mycostatin Cream) 1 applic 5XD PRN TOP FOR ITCHING 02/19/25 12:30 02/19/25 13:37 Review of Systems Constitutional: no fever, chill, weight loss HEENT: no eye pain, no hearing loss, no oral lesion, no scleral icterus Heart: no chest pain, no chest pressure Lung: no cough, no dyspnea with exertion Abdomen: see HPI : no pain with urination, normal appearing urine Musculoskeletal: no joint pain, no muscle pain Neurological: no seizure, no loss of sensation, no weakness in extremities Pysch: no depression, no anxiety Derm: no rash, no jaundice Vital Signs Vital Signs Date Time Temp Pulse Resp B/P (MAP) Pulse Ox O2 Delivery O2 Flow Rate FiO2 02/19/25 13:00 97.6 74 17 102/50 (67) 96 97.6 02/19/25 08:10 Room Air* 0 21 Physical Exam SKIN: [dry] HEENT: [nl] NECK: nl[] CARDIAC: [rrr] PULMONARY: [cta] ABDOMEN: [soft ,nt,no rigidity pelvic-erythematous ,thick whitish dc ,vulva swollen minimally Labs/Diagnostic Data Labs Test 02/19/25 04:56 02/18/25 12:05 02/18/25 05:37 02/17/25 19:21 Range/Units Sodium Level 145 # 136-145 mmol/L Potassium Level 3.8 3.5-5.1 mmol/L Chloride Level 110 H 98-107 mmol/L Carbon Dioxide Level 28 20-31 mmol/L Anion Gap 7 5-15 Blood Urea Nitrogen 16 9-23 mg/dL Creatinine 0.61 0.550-1.02 mg/dL Glomerular Filtration Rate Calc 93 >90 mL/min BUN/Creatinine Ratio 26.2 H 10.0-20.0 Serum Glucose 79 74-106 mg/dL Calcium Level 9.4 8.7-10.4 mg/dL Magnesium Level 1.8 1.6-2.6 mg/dL Influenza Type A Antigen Negative Negative Influenza Type B Antigen Negative Negative SARS-CoV-2 Antigen (Rapid) Negative NEGATIVE White Blood Count 5.3 4.4-10.8 10^3/uL Red Blood Count 3.57 L 4.0-5.20 10^6/uL Hemoglobin 11.3 #L 12.2-16.2 g/dL Hematocrit 33.8 #L 36.0-46.0 % Mean Corpuscular Volume 94.5 80.0-100.0 fL Mean Corpuscular Hemoglobin 31.7 28.0-32.0 pg Mean Corpuscular Hemoglobin Concent 33.6 32.0-36.0 g/dL Red Cell Distribution Width 15.4 H 11.8-14.3 % Platelet Count 243 140-450 10^3/uL Mean Platelet Volume 9.2 6.9-10.8 fL Neutrophils (%) (Auto) 55.2 37.0-80.0 % Lymphocytes (%) (Auto) 34.8 10.0-50.0 % Monocytes (%) (Auto) 6.6 0.0-12.0 % Eosinophils (%) (Auto) 2.6 0.0-7.0 % Basophils (%) (Auto) 0.8 0.0-2.0 % Neutrophils # (Auto) 2.9 1.6-8.6 10 ^3/uL Lymphocytes # (Auto) 1.8 0.4-5.4 10 ^3/uL Monocytes # (Auto) 0.3 0-1.3 10 ^3/uL Eosinophils # (Auto) 0.1 0-0.8 10 ^3/uL Basophils # (Auto) 0 0-0.2 10 ^3/uL Nucleated Red Blood Cells 0.0 % Prothrombin Time 11.0 9.3-11.8 sec Prothrombin Time INR 1.04 0.9-1.15 Activated Partial Thromboplast Time 24.9 24.5-34.5 SEC Total Bilirubin 1.4 H 0.2-1.0 mg/dL Direct Bilirubin 0.5 H <0.3 mg/dL Aspartate Amino Transferase (AST) 18 13-40 U/L Alanine Aminotransferase (ALT) 24 7-40 U/L Alkaline Phosphatase 102 46-116 U/L Total Protein 6.2 5.7-8.2 g/dL Albumin 3.9 3.2-4.8 g/dL Vitamin B12 Level 369 211-911 pg/mL Vitamin D 25-Hydroxy 53.6 30.0-100 ng/mL Folic Acid 20.85 >5.38 ng/mL Thyroid Stimulating Hormone (TSH) 4.62 0.55-4.78 uIU/mL Troponin I High Sensitivity 3 L </=34 ng/L Test 02/17/25 18:20 Range/Units Urine Color Dark-yellow Yellow Urine Clarity Turbid H Clear Urine pH 5.5 5.0-9.0 Urine Specific [place] 1.030 1.001-1.035 Urine Protein Trace H Negative Urine Ketones 1+ H Negative Urine Blood Negative Negative /uL Urine Nitrite Negative Negative Urine Bilirubin Negative Negative Urine Urobilinogen 2 H Negative mg/dL Urine Leukocyte Esterase Negative Negative /uL Urine RBC 2 0 - 4 /hpf Urine Microscopic WBC 4 0-5 /HPF Urine Squamous Epithelial Cells Mod <5 /hpf Urine Bacteria None seen None Seen /hpf Urine Hyaline Casts Mod 0 - 2 /lpf Urine Mucus Few None Seen Urine Glucose Normal Normal mg/dL Urine Opiates Screen Pos NEGATIVE Urine Fentanyl Screen Neg NEGATIVE Urine Barbiturates Screen Neg NEGATIVE Urine Phencyclidine Screen Neg NEGATIVE Urine Amphetamines Screen Neg NEGATIVE Urine Benzodiazepines Screen Neg NEGATIVE Urine Cocaine Screen Neg NEGATIVE Urine Cannabinoids Screen Neg NEGATIVE Microbiology Date/Time Source Procedure Growth Status 02/17/25 18:20 Voided Urine Urine Culture - Preliminary Resulted Primary Diagnosis aloc ,syncope 2' Diagnosis/Comorbidities monilia vulva vaginitis Plan diflucan and nystation externally supportive care will sign off thank you Plan discussed with: Patient, Other Visit Coding OBGYN Date of Service: Feb 19, 2025 Billing Provider: JERALD GARLAND DO TILE GRINDER Common Visit Codes: [id number] INP/OBS CARE(HIGH) TILE GRINDER Consultation Codes: [id number] CONSULT <55MIN JERALD GARLAND DO Feb 19, 2025 16:06
[2025-02-19] MEDS ORDERED: ZOFR4T PO (16:18)
[2025-02-19] MEDS: ACETAMINOPHEN 500 MG TAB or CAP PO PRN (16:36)
[2025-02-19] MEDS: ONDANSETRON HCL 4 MG/2 ML VIAL IV PRN (18:00)
[2025-02-20] VITALS (10 sets, daily range): BP systolic 6–152; BP diastolic 30–71; PULSE 60–105; RESP 16–18; TEMP 36.7; O2SAT 95–98
[2025-02-20] MEDS: SODIUM CHLORIDE 0.9% 1,000 ML IV ONE (09:08)
--- NOTE | 2025-02-20 12:34 | DVHPNRES ---
Progress Note Date Seen: Feb 20, 2025 Resident Creating Document: ESTEBAN BOATENG RESIDENT Medical Necessity Reason Pt with a Central, PICC or Fol: No Subjective Review of Systems Hospital course-patient is 75 years old female with past medical history of Hypertension, dyslipidemia, prediabetic, anxiety, frequent UTIs, CVA with dementia, hypothyroidism, frequent UTIs, sick sinus syndrome status post permanent pacemaker placement, CHF was brought in by EMS due to syncopal attack. Wider gathered information after talking to patient's daughter Karishma, and reviewing chart. As per patient's daughter patient went for grocery store when she was feeling unusual, feeling tired, told daughter that I am feeling weird and daughter noticed she was having flush in the face and arms and body. Following that patient passed out for less than 1 minute. Patient's daughter hold 104 sit on a chair, no history of fall or trauma to the head. As per daughter upon regaining consciousness with the patient was little bit confused had nausea and vomiting once with bile content, no blood. As per daughter patient has a lives appetite in last couple of days where she was eating or drinking less. Denied any fever, acute joint pain or swelling. CTA negative for acute intracranial pathology, CT abdomen revealed diverticulosis with a diverticulitis, no acute pyelonephritis. Urinalysis negative for UTI. Patient tested negative for COVID and influenza type A and B. Echo 2D revealed LVEF 50-60%, RV function normal. Patient was seen by manager interventional, recommendation reviewed and appreciated. Ordered nystatin apply locally for vulvovaginitis. patient was treated conservatively and symptoms improved. Patient is being discharged home with the recommendation to resume home medication. Ordered Zofran q.6h PRN for nausea. Patient was seen today for clinical evaluation. Patient will orthostatic hypotension. BP on standing 152/64, heart rate 60, sitting BP 130 8 x 58, heart rate 60, standing BP 121/55, heart rate 60. Ordered midodrine. Objective vital signs Vital Sign Date Time Temp Pulse Resp B/P (MAP) Pulse Ox O2 Delivery O2 Flow Rate FiO2 02/20/25 08:30 98.1 63 16 132/62 (85) 96 98.1 101/51 (68) 83/53 (63) 02/20/25 08:15 Room Air* 0 21 Total Intake and Output 02/19/25 02/19/25 02/20/25 15:00 23:00 07:00 Intake Total 400 ml 200 ml Balance 400 ml 200 ml medications Current Medications Medications Dose Ordered Sig/Tai Route Start Time Stop Time Status Last Admin Dose Admin Acetaminophen 500 mg Q4HPRN PRN PO 02/18/25 00:30 02/19/25 16:36 500 MG Enteral Nutritional Formula 240 ml TIDWM PO 02/18/25 08:00 02/20/25 12:03 240 ML Aspirin 81 mg DAILY PO 02/18/25 10:00 02/20/25 09:08 81 MG Atorvastatin Calcium 40 mg HS PO 02/18/25 22:00 02/19/25 21:26 40 MG Donepezil HCl 10 mg HS PO 02/18/25 22:00 02/19/25 21:26 10 MG Enoxaparin Sodium 40 mg DAILY SC 02/18/25 10:00 02/20/25 09:08 40 MG Pantoprazole Sodium 40 mg DAILY IV 02/19/25 10:00 02/20/25 09:07 40 MG Acetaminophen/ Hydrocodone Bitart 1 tab Q6HPRN PRN PO 02/18/25 14:45 02/20/25 09:26 1 TAB Nystatin 1 applic 5XD PRN TOP 02/19/25 12:30 02/19/25 13:37 1 APPLIC Ondansetron HCl 4 mg Q4HPRN PRN IV 02/19/25 16:45 02/20/25 09:26 4 MG Examination General examination- patient with confusion, patient was history of dementia HEENT- PEERLA, no acute nasal discharge Cardiovascular- S1-S2 audible, rate and rhythm regular, no murmur Respiratory- CTAB, no wheeze or rhonchi Gastrointestinal-nontender, bowel sound+. Nondistended Musculoskeletal-no acute joint swelling or tenderness or redness Lower extremity- no leg edema Neurological- cranial nerves intact, no acute dysarthria or dysphagia Psychiatry- denies depression or SI or HI Skin- no acute rash or purpura laboratory and microbiology Laboratory Tests 02/19/25 04:56 02/18/25 05:37 Test 02/19/25 04:56 Range/Units Serum Glucose 79 74-106 mg/dL Microbiology Date/Time Source Procedure Growth Status 02/18/25 23:34 Nose MRSA Screen - Final Complete 02/17/25 18:20 Voided Urine Urine Culture - Preliminary Resulted Problem List/Assessment/Plan Problem List/Assessment/Plan Assessment and plan #Syncope likely due to orthostatic hypotension/dehydration rule out TIA/cardiac arrhythmia/ -CTA negative for acute intracranial pathology -carotid Doppler negative for carotid artery stenosis -midodrine 5 mg t.i.d. 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 q.h.s. # prediabetic, #anxiety, #CVA with dementia, -donepezil 10 mg p.o. q.h.s. # hypothyroidism #frequent UTIs, -urinalysis negative for acute UTI #sick sinus syndrome status post permanent pacemaker placement, #CHF -continue monitoring Goals of care, Code status ; discussed with >15 minutes PUD prophylaxis: Pantoprazole DVT prophylaxis: Lovenox Plan discussed with Dr. Jordan , nursing staff, Total time spent on patient evaluation, chart review, assessment and plan, discussion discussion >35 minutes Plan discussed with: Patient, Daughter, Other (RN) My Orders My Orders Orders - ESTEBAN BOATENG Procedure Category Date Status Time Discharge DISCHARGE 02/19/25 Transmitted 14:56 Ondansetron Hcl PHA 02/19/25 In Process (Zonikki) 16:45 Transfer Orders XFER 02/20/25 Transmitted 08:21 ESTEBAN BOATENG Feb 20, 2025 12:34
[2025-02-20] MEDS: SODIUM CHLORIDE 0.9% 500 ML IV ONE (14:29)
[2025-02-20] MEDS: MIDODRINE HCL 10 MG TAB PO ONE (14:30)
[2025-02-20] MEDS: MIDODRINE HCL 10 MG TAB PO SCH (17:33)
[2025-02-20] MEDS: IBUPROFEN 400 MG TAB PO ONE (21:33)
[2025-02-21 01:00] VITALS: BP 124/65; PULSE 73; RESP 18; TEMP 97.3; O2SAT 95
[2025-02-21 05:10] VITALS: BP 124/59; PULSE 65; RESP 17; TEMP 98.2; O2SAT 95
[2025-02-21 07:03] LABS: Calcium 8.7 mg/dL (8.7-10.4); Potassium 3.5 mmol/L (3.5-5.1); Sodium 144 mmol/L (136-145)
[2025-02-21 07:04] LABS: Anion Gap 9 (5-15); Carbon Dioxide 28 mmol/L (20-31)
[2025-02-21 07:09] LABS: BUN/Creatinine Ratio 23.6 (10.0-20.0); Blood Urea Nitrogen 13 mg/dL (9-23); Glucose 87 mg/dL (74-106)
[2025-02-21 07:33] LABS: Chloride 107 mmol/L (98-107)
[2025-02-21 08:00] VITALS: PULSE 68
[2025-02-21 09:00] VITALS: BP 106/43; PULSE 70; RESP 17; TEMP 98.4; O2SAT 97
--- NOTE | 2025-02-21 15:38 | DVHDSRES ---
Discharge Summary Date of Admission Resident Creating Document: ESTEBAN BOATENG RESIDENT Feb 17, 2025 at 22:14 Date of Discharge: Feb 19, 2025 Admitting Diagnosis Syncope Labs/Diagnostic Data: Laboratory Results Test 02/21/25 05:25 02/19/25 04:56 02/18/25 12:05 02/18/25 05:37 Sodium Level 144 mmol/L (136-145) Potassium Level 3.5 mmol/L (3.5-5.1) Chloride Level 107 mmol/L (98-107) Carbon Dioxide Level 28 mmol/L (20-31) Anion Gap 9 (5-15) Blood Urea Nitrogen 13 mg/dL (9-23) Creatinine 0.55 mg/dL (0.550-1.02) Glomerular Filtration Rate Calc 96 mL/min (>90) BUN/Creatinine Ratio 23.6 (10.0-20.0) Serum Glucose 87 mg/dL (74-106) Calcium Level 8.7 mg/dL (8.7-10.4) Magnesium Level 1.8 mg/dL (1.6-2.6) Influenza Type A Antigen Negative (Negative) Influenza Type B Antigen Negative (Negative) SARS-CoV-2 Antigen (Rapid) Negative (NEGATIVE) White Blood Count 5.3 10^3/uL (4.4-10.8) Red Blood Count 3.57 10^6/uL (4.0-5.20) Hemoglobin 11.3 g/dL (12.2-16.2) Hematocrit 33.8 % (36.0-46.0) Mean Corpuscular Volume 94.5 fL (80.0-100.0) Mean Corpuscular Hemoglobin 31.7 pg (28.0-32.0) Mean Corpuscular Hemoglobin Concent 33.6 g/dL (32.0-36.0) Red Cell Distribution Width 15.4 % (11.8-14.3) Platelet Count 243 10^3/uL (140-450) Mean Platelet Volume 9.2 fL (6.9-10.8) Neutrophils (%) (Auto) 55.2 % (37.0-80.0) Lymphocytes (%) (Auto) 34.8 % (10.0-50.0) Monocytes (%) (Auto) 6.6 % (0.0-12.0) Eosinophils (%) (Auto) 2.6 % (0.0-7.0) Basophils (%) (Auto) 0.8 % (0.0-2.0) Neutrophils # (Auto) 2.9 10 ^3/uL (1.6-8.6) Lymphocytes # (Auto) 1.8 10 ^3/uL (0.4-5.4) Monocytes # (Auto) 0.3 10 ^3/uL (0-1.3) Eosinophils # (Auto) 0.1 10 ^3/uL (0-0.8) Basophils # (Auto) 0 10 ^3/uL (0-0.2) Nucleated Red Blood Cells 0.0 % Prothrombin Time 11.0 sec (9.3-11.8) Prothrombin Time INR 1.04 (0.9-1.15) Activated Partial Thromboplast Time 24.9 SEC (24.5-34.5) Total Bilirubin 1.4 mg/dL (0.2-1.0) Direct Bilirubin 0.5 mg/dL (<0.3) Aspartate Amino Transferase (AST) 18 U/L (13-40) Alanine Aminotransferase (ALT) 24 U/L (7-40) Alkaline Phosphatase 102 U/L (46-116) Total Protein 6.2 g/dL (5.7-8.2) Albumin 3.9 g/dL (3.2-4.8) Vitamin B12 Level 369 pg/mL (211-911) Vitamin D 25-Hydroxy 53.6 ng/mL (30.0-100) Folic Acid 20.85 ng/mL (>5.38) Thyroid Stimulating Hormone (TSH) 4.62 uIU/mL (0.55-4.78) Test 02/17/25 19:21 02/17/25 18:20 Troponin I High Sensitivity 3 ng/L (</=34) Urine Color Dark-yellow (Yellow) Urine Clarity Turbid (Clear) Urine pH 5.5 (5.0-9.0) Urine Specific [place] 1.030 (1.001-1.035) Urine Protein Trace (Negative) Urine Ketones 1+ (Negative) Urine Blood Negative /uL (Negative) Urine Nitrite Negative (Negative) Urine Bilirubin Negative (Negative) Urine Urobilinogen 2 mg/dL (Negative) Urine Leukocyte Esterase Negative /uL (Negative) Urine RBC 2 /hpf (0 - 4) Urine Microscopic WBC 4 /HPF (0-5) Urine Squamous Epithelial Cells Mod /hpf (<5) Urine Bacteria None seen /hpf (None Seen) Urine Hyaline Casts Mod /lpf (0 - 2) Urine Mucus Few (None Seen) Urine Glucose Normal mg/dL (Normal) Urine Opiates Screen Pos (NEGATIVE) Urine Fentanyl Screen Neg (NEGATIVE) Urine Barbiturates Screen Neg (NEGATIVE) Urine Phencyclidine Screen Neg (NEGATIVE) Urine Amphetamines Screen Neg (NEGATIVE) Urine Benzodiazepines Screen Neg (NEGATIVE) Urine Cocaine Screen Neg (NEGATIVE) Urine Cannabinoids Screen Neg (NEGATIVE) Other Laboratory Tests 02/21/25 05:25 02/18/25 05:37 Brief Hx & Hospital Course: Hospital course-patient is 75 years old female with past medical history of Hypertension, dyslipidemia, prediabetic, anxiety, frequent UTIs, CVA with dementia, hypothyroidism, frequent UTIs, sick sinus syndrome status post permanent pacemaker placement, CHF was brought in by EMS due to syncopal attack. Wider gathered information after talking to patient's daughter Karishma, and reviewing chart. As per patient's daughter patient went for grocery store when she was feeling unusual, feeling tired, told daughter that I am feeling weird and daughter noticed she was having flush in the face and arms and body. Following that patient passed out for less than 1 minute. Patient's daughter hold 104 sit on a chair, no history of fall or trauma to the head. As per daughter upon regaining consciousness with the patient was little bit confused had nausea and vomiting once with bile content, no blood. As per daughter patient has a lives appetite in last couple of days where she was eating or drinking less. Denied any fever, acute joint pain or swelling. CTA negative for acute intracranial pathology, CT abdomen revealed diverticulosis with a diverticulitis, no acute pyelonephritis. Urinalysis negative for UTI. Patient tested negative for COVID and influenza type A and B. Echo 2D revealed LVEF 50-60%, RV function normal. Patient was positive for orthostatic hypotension. Patient was seen by shoe associate, recommendation reviewed and appreciated. Ordered nystatin apply locally for vulvovaginitis. patient was treated conservatively and symptoms improved. Patient is being discharged home with the recommendation to resume home medication. Ordered Zofran q.6h PRN for nausea and midodrine 5 mg p.o. t.i.d. for 5 days. Patient was hemodynamically stable on discharge. 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 # hypothyroidism #frequent UTIs, #sick sinus syndrome status post permanent pacemaker placement, #CHF Plan Zofran 4 mg p.o. q.6h PRN Nystatin ointment applied locally as prescribed Continue midodrine 10 mg p.o. t.i.d. for 5 days Please resume home medications Avoid dehydration and nephrotoxic drugs Please follow up with the primary care physician in 1 week Please follow up with the shoe associate for further evaluation and care of vulvovaginitis PLEASE USE HOWIE SOCKS DURING AMBULATION Operations or Procedures [place] [address] Ph: [phone] DIAGNOSTIC IMAGING Diagnostic Imaging Report : [id number] Signed PATIENT: JAZLYN FRANCISACCT: [id number] UNIT: [id number] : 1950 LOC: OVERFLOW ROOM / BED: [address] [place] [address] AGE / SEX: 75 / F ADM STATUS: ADM IN SERVICE 54 ORDERING PHYSICIAN: ESTEBAN BOATENG RESIDENT PROCEDURE(s): CXRP - CHEST PORTABLE REASON: ?PNA ORDER NUMBER(s): [id number], ACCESSION NUMBER(s): [id number] EXAM: XY CHEST PORTABLE HISTORY: PNA COMPARISON: XY CHEST PORTABLE on DOS: 02/01/25, CHEST XRAY 1 VIEW on DOS: 06/23/21, CHEST PORTABLE on DOS: 06/22/21 TECHNIQUE: Portable AP view of the chest was performed. FINDINGS: No pneumothorax, consolidative infiltrates, or pulmonary edema. The heart is not enlarged. Left chest pacemaker is re-identified. IMPRESSION: No acute intrathoracic process. 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 This CT exam was performed using one or more of the following dose reduction techniques: automated exposure control, adjustment of the mA and/or kV according to patient size, and/or use of iterative reconstruction technique. CONTRAST: RADIATION DOSE: CTDIvol = 5.07 mGy, DLP = 243.96 mGy-cm COMPARISON: CT CT AB PEL WITH IV CON ONLY on DOS: 01/30/25 FINDINGS: LUNG BASES: Unremarkable. No mass. No consolidation. ABDOMEN: LIVER: Fatty infiltration of the liver. GALLBLADDER AND BILE DUCTS: Gallbladder is surgically absent. No ductal dilation. PANCREAS: Unremarkable. No mass. No ductal dilation. SPLEEN: Unremarkable. No splenomegaly. ADRENALS: Unremarkable. No mass. KIDNEYS AND URETERS: Renal cysts. No hydronephrosis. STOMACH AND BOWEL: Colonic diverticulosis without acute diverticulitis. No obstruction. PELVIS: APPENDIX: No findings to suggest acute appendicitis. BLADDER: Unremarkable. No mass. REPRODUCTIVE: Unremarkable as visualized. ABDOMEN and PELVIS: INTRAPERITONEAL SPACE: Unremarkable. No free air. No significant fluid collection. BONES/JOINTS: No acute fracture. No dislocation. SOFT TISSUES: Unremarkable. VASCULATURE: Unremarkable. No abdominal aortic aneurysm. LYMPH NODES: Unremarkable. No enlarged lymph nodes. OTHER FINDINGS: . . . . . . IMPRESSION: 1. No CT evidence of pyelonephritis. Clinical correlation is recommended. 2. Colonic diverticulosis without acute diverticulitis. ATED BY: ANNE ALATORRE MD DICTATED DATE/TIME: 02/18/25545 SIGNED BY: ANNE ALATORRE MD SIGNED DATE/TIME: 02/18/25545 CC: [address] [address] Ph: [phone] DIAGNOSTIC IMAGING Diagnostic Imaging Report : [id number] Signed PATIENT: JAZLYN FRANCISACCT: [id number] UNIT: [id number] : 1950 LOC: OVERFLOW ROOM / BED: [address] [place] [address] AGE / SEX: 75 / F ADM STATUS: ADM IN SERVICE ORDERING PHYSICIAN: DB AGUAYO RESIDENT PROCEDURE(s): KIDUS - KIDNEY REASON: r/o pyelo ORDER NUMBER(s): [id number], ACCESSION NUMBER(s): [id number] US KIDNEY HISTORY: r/o pyelo COMPARISON: US KIDNEY on DOS: 01/31/25 TECHNIQUE: Transverse and longitudinal grayscale and color Doppler images were obtained of the kidneys and bladder. FINDINGS: Right kidney measures 11.3 cm in length. Left kidney measures 9.9 cm length. Renal echotexture is preserved. No evidence of hydronephrosis. No solid or cystic sonographic mass. There is the appearance of multiple echogenic foci in the left kidney, no calculi noted on prior CT of 01/30/2025 Bladder: Normal IMPRESSION: 1. Echogenic foci within the left kidney of unknown etiology. No prior calculi noted on CT of 01/30/2025. 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 Consider repeat CT. ATED BY: ROSHAN BEGUM MD DICTATED DATE/TIME: 02/18/25226 SIGNED BY: ROSHAN BEGUM MD SIGNED DATE/TIME: 02/18/25226 CC: [address] [address] Ph: [phone] DIAGNOSTIC IMAGING Diagnostic Imaging Report : [id number] Signed PATIENT: FABY FRANCIST: [id number] UNIT: [id number] : 1950 LOC: OVERFLOW ROOM / BED: 1023-ERT / A AGE / SEX: 75 / F ADM STATUS: ADM IN SERVICE 0030 ORDERING PHYSICIAN: DB AGUAYO PROCEDURE(s): CARCL - CAROTID DUPLX W COLOR DOP REASON: syncop ORDER NUMBER(s): [id number], ACCESSION NUMBER(s): [id number] Carotid Duplex Date: 02/18/2025 12:50 AM Clinical History: syncop Comparison: None Technique: Duplex Doppler evaluation of the extracranial carotid and vertebral arteries including color Doppler and spectral/pulsed waveform analysis was performed. Findings: Velocities and ratios within normal limits IMPRESSION: No hemodynamically significant stenosis noted in the right carotid system. No hemodynamically significant stenosis noted in the left carotid system. Reference: Radiology 2003; 229:340-346 ATED BY: RC CHENEY MD DICTATED DATE/TIME: 02/18/25357 SIGNED BY: RC CHENEY MD SIGNED DATE/TIME: 02/18/25357 CC: [place] [address] Ph: [phone] DIAGNOSTIC IMAGING Diagnostic Imaging Report : [id number] Signed PATIENT: FABY FRANCIST: [id number] UNIT: [id number] : 1950 LOC: ER ROOM / BED: / AGE / SEX: 75 / F ADM STATUS: REG ER SERVICE 1521 ORDERING PHYSICIAN: JON DOMINGUEZ MD PROCEDURE(s): HWOCT - HEAD WITHOUT CONTRAST REASON: altered ORDER NUMBER(s): [id number], ACCESSION NUMBER(s): [id number] CT brain without contrast CLINICAL INDICATION: Altered mental status FINDINGS: The study was performed in a multidetector scanner. This study performed taking axial images from the skull base up to the vertex. Both brain and bone windows are photographed. Dose lowering techniques have been used including automated exposure control and adjustment of mA and/or KV according to patient size. Cortical sulcal markings are prominent. No intraparenchymal hemorrhage or edema No hydrocephalus or midline shift. No extra-axial fluid collections On bone windows no calvarial lesions. No paranasal sinus disease IMPRESSION: 1. Age-appropriate senescent changes. No acute intracranial pathology Computed Tomographic Radiation Dosimetry Report: Total CTDI vol = 50 mGy Total DLP = 797 mGy-cm All CT scans at this medical facility are performed using dose modulation techniques as appropriate to a performed exam including the following: Automated exposure control was utilized; adjustment of the MA and/or KvP according to patient size; and use of iterative reconstruction technique. 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 q.6h PRN Midodrine 10 mg p.o. daily for 5 days Nystatin ointment applied locally as prescribed Please resume home medications Avoid dehydration and nephrotoxic drugs Please follow up with the primary care physician in 1 week Please follow up with the shoe associate for further evaluation and care of vulvovaginitis Please use Howie socks during ambulation Discharge Statement: "Patient was advised to return to the ER or call 911 if any headaches, dizziness, shortness of breath, chest pain, abdominal pain, bleeding, fevers, or worsening of medical condition. Patient was counseled about treatment plan, medications, possible side effects, patientverbalized understanding. All questions were answered to the best of my ability. 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
[2025-02-21] MEDS ORDERED: MID10T PO (15:40)
[2025-02-21] MEDS ORDERED: NYST150P2 XX (15:40)
[2025-02-21 19:30] VITALS: PULSE 61; RESP 16
[2025-02-21 21:00] VITALS: BP 123/48; PULSE 60; RESP 17; TEMP 97.5; O2SAT 95
[2025-02-22] VITALS (8 sets, daily range): BP systolic 106–128; BP diastolic 46–80; PULSE 58–63; RESP 16–18; TEMP 97.6–98.1; O2SAT 93–96
[2025-02-22] MEDS: MIDODRINE HCL 10 MG TAB PO SCH (12:17)
[2025-02-22] MEDS: SODIUM CHLORIDE 0.9% 1,000 ML IV ONE (12:18)
--- NOTE | 2025-02-22 14:44 | DVHPNRES ---
Progress Note Date Seen: Feb 22, 2025 Resident Creating Document: ESTEBAN BOATENG RESIDENT Medical Necessity Reason Pt with a Central, PICC or Fol: No Subjective Review of Systems Hospital course-patient is 75 years old female with past medical history of Hypertension, dyslipidemia, prediabetic, anxiety, frequent UTIs, CVA with dementia, hypothyroidism, frequent UTIs, sick sinus syndrome status post permanent pacemaker placement, CHF was brought in by EMS due to syncopal attack. Wider gathered information after talking to patient's daughter Karishma, and reviewing chart. As per patient's daughter patient went for grocery store when she was feeling unusual, feeling tired, told daughter that I am feeling weird and daughter noticed she was having flush in the face and arms and body. Following that patient passed out for less than 1 minute. Patient's daughter hold 104 sit on a chair, no history of fall or trauma to the head. As per daughter upon regaining consciousness with the patient was little bit confused had nausea and vomiting once with bile content, no blood. As per daughter patient has a lives appetite in last couple of days where she was eating or drinking less. Denied any fever, acute joint pain or swelling. CTA negative for acute intracranial pathology, CT abdomen revealed diverticulosis with a diverticulitis, no acute pyelonephritis. Urinalysis negative for UTI. Patient tested negative for COVID and influenza type A and B. Echo 2D revealed LVEF 50-60%, RV function normal. Patient was seen by automotive machinist apprentice, recommendation reviewed and appreciated. Ordered nystatin apply locally for vulvovaginitis. patient was treated conservatively and symptoms improved. Patient is being discharged home with the recommendation to resume home medication. Ordered Zofran q.6h PRN for nausea. Patient was seen today for clinical evaluation. .patient came with syncope, recurrent orthostatic hypotension, on midodrine 10 mg p.o. t.i.d., ordered for 4 a.m. cortisone level. Order physical therapy for further care. Order for teresa socks in place Objective vital signs Vital Sign Date Time Temp Pulse Resp B/P (MAP) Pulse Ox O2 Delivery O2 Flow Rate FiO2 02/22/25 09:00 98.1 60 16 123/51 (75) 95 98.1 02/22/25 08:08 Room Air* 0 21 Total Intake and Output 02/21/25 02/21/25 02/22/25 15:00 23:00 07:00 Intake Total 445 ml 400 ml Balance 445 ml 400 ml medications Current Medications Medications Dose Ordered Sig/Tai Route Start Time Stop Time Status Last Admin Dose Admin Acetaminophen 500 mg Q4HPRN PRN PO 02/18/25 00:30 02/22/25 09:00 500 MG Enteral Nutritional Formula 240 ml TIDWM PO 02/18/25 08:00 02/22/25 12:18 240 ML Aspirin 81 mg DAILY PO 02/18/25 10:00 02/22/25 09:01 81 MG Atorvastatin Calcium 40 mg HS PO 02/18/25 22:00 02/21/25 21:31 40 MG Donepezil HCl 10 mg HS PO 02/18/25 22:00 02/21/25 21:30 10 MG Enoxaparin Sodium 40 mg DAILY SC 02/18/25 10:00 02/22/25 09:00 40 MG Pantoprazole Sodium 40 mg DAILY IV 02/19/25 10:00 02/22/25 09:00 40 MG Acetaminophen/ Hydrocodone Bitart 1 tab Q6HPRN PRN PO 02/18/25 14:45 02/22/25 12:17 1 TAB Nystatin 1 applic 5XD PRN TOP 02/19/25 12:30 02/22/25 03:42 1 APPLIC Ondansetron HCl 4 mg Q4HPRN PRN IV 02/19/25 16:45 02/22/25 00:35 4 MG Midodrine 10 mg TID@0600,1200,1800 PO 02/22/25 12:00 02/22/25 12:17 10 MG Examination General examination- patient with confusion, patient was history of dementia HEENT- PEERLA, no acute nasal discharge Cardiovascular- S1-S2 audible, rate and rhythm regular, no murmur Respiratory- CTAB, no wheeze or rhonchi Gastrointestinal-nontender, bowel sound+. Nondistended Musculoskeletal-no acute joint swelling or tenderness or redness Lower extremity- no leg edema Neurological- cranial nerves intact, no acute dysarthria or dysphagia Psychiatry- denies depression or SI or HI Skin- no acute rash or purpura laboratory and microbiology Laboratory Tests 02/21/25 05:25 02/18/25 05:37 Test 02/21/25 05:25 Range/Units Serum Glucose 87 74-106 mg/dL Microbiology Date/Time Source Procedure Growth Status 02/18/25 23:34 Nose MRSA Screen - Final Complete 02/17/25 18:20 Voided Urine Urine Culture - Final Complete Problem List/Assessment/Plan Problem List/Assessment/Plan Assessment and plan-patient came with syncope, recurrent orthostatic hypotension, on midodrine 10 mg p.o. t.i.d., ordered for 4 a.m. cortisone level. Order physical therapy for further care. #Syncope likely due to orthostatic hypotension/dehydration rule out TIA/cardiac arrhythmia/ -CTA negative for acute intracranial pathology -carotid Doppler negative for carotid artery stenosis -midodrine 10 mg t.i.d. 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 q.h.s. # prediabetic, #anxiety, #CVA with dementia, -donepezil 10 mg p.o. q.h.s. # hypothyroidism #frequent UTIs, -urinalysis negative for acute UTI #sick sinus syndrome status post permanent pacemaker placement, #CHF -continue monitoring Goals of care, Code status ; discussed with >15 minutes PUD prophylaxis: Pantoprazole DVT prophylaxis: Lovenox Plan discussed with Dr. Jordan , nursing staff, Total time spent on patient evaluation, chart review, assessment and plan, discussion discussion >35 minutes Plan discussed with: Patient, Daughter (RN), Other My Orders My Orders Orders - ESTEBAN BOATENG RESIDENT Procedure Category Date Status Time Midodrine Tablet PHA 02/22/25 In Process (Proamatine Tablet) 12:00 Dietary Evaluation Review Comments: 1) Advance diet as medically feasible 2) Continue current plan of care Expected Outcomes/Goals: To meet >75% estimated needs Fu 3-5 days ESTEBAN BOATENG RESIDENT Feb 22, 2025 14:44
[2025-02-22] MEDS ORDERED: MID10T PO (14:52)
[2025-02-22 16:28] LABS: Basophils # (auto) 0 10 ^3/uL (0-0.2); Basophils % (auto) 0.5 % (0.0-2.0); Eosinophils # (auto) 0.2 10 ^3/uL (0-0.8); Eosinophils % (auto) 3.3 % (0.0-7.0); Hematocrit 35.2 % (36.0-46.0); Hemoglobin 11.6 g/dL (12.2-16.2); Lymphocytes # (auto) 1.9 10 ^3/uL (0.4-5.4); Lymphocytes % (auto) 32.8 % (10.0-50.0); Mean Corpuscular Hemoglobin 31.1 pg (28.0-32.0); Mean Corpuscular Volume 94.4 fL (80.0-100.0); Monocytes # (auto) 0.5 10 ^3/uL (0-1.3); Neutrophils # (auto) 3.1 10 ^3/uL (1.6-8.6); Neutrophils % (auto) 55.4 % (37.0-80.0); Nucleated Red Blood Cells % 0.1 %; Platelet Count (auto) 255 10^3/uL (140-450); Red Blood Cells 3.73 10^6/uL (4.0-5.20); Red Cell Distribution Width 15.4 % (11.8-14.3); White Blood Cell 5.7 10^3/uL (4.4-10.8)
[2025-02-23] VITALS (9 sets, daily range): BP systolic 94–135; BP diastolic 49–63; PULSE 54–82; RESP 16–20; TEMP 97.3–98.2; O2SAT 93–99
[2025-02-23] MEDS: MIDODRINE HCL 10 MG TAB PO ONE (07:27)
[2025-02-23 08:46] LABS: Anion Gap 7 (5-15); Carbon Dioxide 30 mmol/L (20-31); Chloride 105 mmol/L (98-107); Sodium 142 mmol/L (136-145)
[2025-02-23 08:48] LABS: Calcium 9.4 mg/dL (8.7-10.4)
[2025-02-23 08:52] LABS: Glucose 98 mg/dL (74-106)
[2025-02-23 08:53] LABS: BUN/Creatinine Ratio 25.8 (10.0-20.0); Blood Urea Nitrogen 17 mg/dL (9-23); Magnesium 1.9 mg/dL (1.6-2.6)
[2025-02-23] MEDS: SODIUM CHLORIDE 0.9% 1,000 ML IV ONE (11:47)
[2025-02-23] MEDS: DOCUSATE SOD 100 MG CAP PO ONE (14:26)
[2025-02-23] MEDS: MORPHINE SULFATE INJ 2 MG/ml SYRG IV ONE (14:28)
--- NOTE | 2025-02-23 17:02 | DVHPNRES ---
Progress Note Date Seen: Feb 23, 2025 Resident Creating Document: STEPHANE HERNANDEZ RESDIENT Medical Necessity Reason Pt with a Central, PICC or Fol: No Subjective Review of Systems Patient seen and examined at the bedside. Patient is still complaining of dizziness and abdominal pain. Patient reports: No new complaints Changes from previous H/P or p: No Changes Objective vital signs Vital Sign Date Time Temp Pulse Resp B/P (MAP) Pulse Ox O2 Delivery O2 Flow Rate FiO2 02/23/25 16:46 60 16 94/49 (64) 112/57 (75) 109/50 (69) 02/23/25 13:30 97.7 97 97.7 02/23/25 08:00 Room Air* 0 21 Total Intake and Output 02/22/25 02/22/25 02/23/25 15:00 23:00 07:00 Intake Total 360 ml 900 ml Balance 360 ml 900 ml medications Current Medications Medications Dose Ordered Sig/Tai Route Start Time Stop Time Status Last Admin Dose Admin Acetaminophen 500 mg Q4HPRN PRN PO 02/18/25 00:30 02/23/25 05:40 500 MG Enteral Nutritional Formula 240 ml TIDWM PO 02/18/25 08:00 02/23/25 12:10 240 ML Aspirin 81 mg DAILY PO 02/18/25 10:00 02/23/25 09:11 81 MG Atorvastatin Calcium 40 mg HS PO 02/18/25 22:00 02/22/25 21:36 40 MG Donepezil HCl 10 mg HS PO 02/18/25 22:00 02/22/25 21:36 10 MG Enoxaparin Sodium 40 mg DAILY SC 02/18/25 10:00 02/23/25 09:12 40 MG Pantoprazole Sodium 40 mg DAILY IV 02/19/25 10:00 02/23/25 09:11 40 MG Acetaminophen/ Hydrocodone Bitart 1 tab Q6HPRN PRN PO 02/18/25 14:45 02/23/25 09:11 1 TAB Nystatin 1 applic 5XD PRN TOP 02/19/25 12:30 02/22/25 03:42 1 APPLIC Ondansetron HCl 4 mg Q4HPRN PRN IV 02/19/25 16:45 02/22/25 00:35 4 MG Midodrine 10 mg TID@0600,1200,1800 PO 02/22/25 12:00 02/23/25 12:09 10 MG Docusate Sodium 100 mg BIDPRN PRN PO 02/23/25 14:15 Examination General examination- patient with confusion, patient was history of dementia HEENT- PEERLA, no acute nasal discharge Cardiovascular- S1-S2 audible, rate and rhythm regular, no murmur Respiratory- CTAB, no wheeze or rhonchi Gastrointestinal-nontender, bowel sound+. Nondistended Musculoskeletal-no acute joint swelling or tenderness or redness Lower extremity- no leg edema Neurological- cranial nerves intact, no acute dysarthria or dysphagia Psychiatry- denies depression or SI or HI Skin- no acute rash or purpura laboratory and microbiology Laboratory Tests 02/23/25 07:53 02/22/25 16:16 Test 02/23/25 07:53 Range/Units Serum Glucose 98 74-106 mg/dL Microbiology Date/Time Source Procedure Growth Status 02/18/25 23:34 Nose MRSA Screen - Final Complete 02/17/25 18:20 Voided Urine Urine Culture - Final Complete Labs and/or images reviewed: Labs reviewed by me, Image(s) reviewed by me Problem List/Assessment/Plan Problem List/Assessment/Plan Assessment and plan-patient came with syncope, recurrent orthostatic hypotension, on midodrine 10 mg p.o. t.i.d., ordered for 4 a.m. cortisone level. Order physical therapy for further care. #Syncope likely due to orthostatic hypotension/dehydration rule out TIA/cardiac arrhythmia/ -CTA negative for acute intracranial pathology -carotid Doppler negative for carotid artery stenosis -midodrine 10 mg t.i.d. 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 q.h.s. # prediabetic, #anxiety, #CVA with dementia, -donepezil 10 mg p.o. q.h.s. # hypothyroidism #frequent UTIs, -urinalysis negative for acute UTI #sick sinus syndrome status post permanent pacemaker placement, #CHF -continue monitoring Goals of care, Code status ; discussed with >15 minutes Patient was found to be discharged, due to dizziness and lightheadedness discharge postponed it. Orthostatic vitals showed significant blood pressure dropped, the patient was given IV fluid. PUD prophylaxis: Pantoprazole DVT prophylaxis: Lovenox Plan discussed with Dr. Jordan , nursing staff, Plan discussed with: Patient, Other (RN) My Orders My Orders Orders - STEPHANE HERNANDEZ Procedure Category Date Status Time Docusate Sodium PHA 02/23/25 In Process Capsule (Colace 14:15 Dietary Evaluation Review Comments: 1) Advance diet as medically feasible 2) Continue current plan of care Expected Outcomes/Goals: To meet >75% estimated needs Fu 3-5 days STEPHANE HERNANDEZ Feb 23, 2025 17:02
[2025-02-23] MEDS: DOCUSATE SOD 100 MG CAP PO PRN (21:47)
[2025-02-23] MEDS: MELATONIN 5 MG TAB PO ONE (23:09)
[2025-02-23] MEDS: KETOROLAC TROMETH 30 MG/ML 1ML VIAL IV ONE (23:09)
[2025-02-24] VITALS (7 sets, daily range): BP systolic 0–153; BP diastolic 41–63; PULSE 54–71; RESP 15–16; TEMP 97.5–98.3; O2SAT 93–98
[2025-02-24] MEDS: MICONAZOLE NITRATE 2 % VAGINAL CREAM 45 GM PV SCH (07:27)
[2025-02-24 08:00] LABS: Basophils # (auto) 0 10 ^3/uL (0-0.2); Basophils % (auto) 0.7 % (0.0-2.0); Eosinophils # (auto) 0.3 10 ^3/uL (0-0.8); Eosinophils % (auto) 4.5 % (0.0-7.0); Hematocrit 34.4 % (36.0-46.0); Hemoglobin 11.6 g/dL (12.2-16.2); Lymphocytes # (auto) 1.7 10 ^3/uL (0.4-5.4); Lymphocytes % (auto) 29.4 % (10.0-50.0); Mean Corpuscular Hemoglobin 31.7 pg (28.0-32.0); Mean Corpuscular Hgb Conc. 33.8 g/dL (32.0-36.0); Mean Corpuscular Volume 93.8 fL (80.0-100.0); Monocytes # (auto) 0.4 10 ^3/uL (0-1.3); Monocytes % (auto) 6.7 % (0.0-12.0); Neutrophils # (auto) 3.3 10 ^3/uL (1.6-8.6); Neutrophils % (auto) 58.7 % (37.0-80.0); Nucleated Red Blood Cells % 0.1 %; Platelet Count (auto) 234 10^3/uL (140-450); Red Blood Cells 3.67 10^6/uL (4.0-5.20); Red Cell Distribution Width 15.6 % (11.8-14.3); White Blood Cell 5.6 10^3/uL (4.4-10.8)
[2025-02-24 08:10] LABS: Albumin 3.9 g/dL (3.2-4.8); Alkaline Phosphatase 104 U/L (46-116); Anion Gap 9 (5-15); BUN/Creatinine Ratio 27.1 (10.0-20.0); Blood Urea Nitrogen 16 mg/dL (9-23); Calcium 9.9 mg/dL (8.7-10.4); Carbon Dioxide 28 mmol/L (20-31); Chloride 106 mmol/L (98-107); Glucose 88 mg/dL (74-106); Potassium 3.8 mmol/L (3.5-5.1); Sodium 143 mmol/L (136-145); Total Protein 6.3 g/dL (5.7-8.2)
[2025-02-24 08:15] LABS: Alanine Aminotransferase 49 U/L (7-40); Aspartate Aminotransferase 44 U/L (13-40)
[2025-02-24] MEDS: KETOROLAC TROMETH 30 MG/ML 1ML VIAL IV ONE (16:51)
--- NOTE | 2025-02-24 18:40 | DVHDSRES ---
Discharge Summary Date of Admission Resident Creating Document: STEPHANE HERNANDEZ RESDIENT Feb 17, 2025 at 22:14 Date of Discharge: Feb 24, 2025 Admitting Diagnosis Acute syncopy Labs/Diagnostic Data: Laboratory Results Test 02/24/25 07:18 02/23/25 07:53 02/18/25 12:05 02/18/25 05:37 White Blood Count 5.6 10^3/uL (4.4-10.8) Red Blood Count 3.67 10^6/uL (4.0-5.20) Hemoglobin 11.6 g/dL (12.2-16.2) Hematocrit 34.4 % (36.0-46.0) Mean Corpuscular Volume 93.8 fL (80.0-100.0) Mean Corpuscular Hemoglobin 31.7 pg (28.0-32.0) Mean Corpuscular Hemoglobin Concent 33.8 g/dL (32.0-36.0) Red Cell Distribution Width 15.6 % (11.8-14.3) Platelet Count 234 10^3/uL (140-450) Mean Platelet Volume 9.7 fL (6.9-10.8) Neutrophils (%) (Auto) 58.7 % (37.0-80.0) Lymphocytes (%) (Auto) 29.4 % (10.0-50.0) Monocytes (%) (Auto) 6.7 % (0.0-12.0) Eosinophils (%) (Auto) 4.5 % (0.0-7.0) Basophils (%) (Auto) 0.7 % (0.0-2.0) Neutrophils # (Auto) 3.3 10 ^3/uL (1.6-8.6) Lymphocytes # (Auto) 1.7 10 ^3/uL (0.4-5.4) Monocytes # (Auto) 0.4 10 ^3/uL (0-1.3) Eosinophils # (Auto) 0.3 10 ^3/uL (0-0.8) Basophils # (Auto) 0 10 ^3/uL (0-0.2) Nucleated Red Blood Cells 0.1 % Sodium Level 143 mmol/L (136-145) Potassium Level 3.8 mmol/L (3.5-5.1) Chloride Level 106 mmol/L (98-107) Carbon Dioxide Level 28 mmol/L (20-31) Anion Gap 9 (5-15) Blood Urea Nitrogen 16 mg/dL (9-23) Creatinine 0.59 mg/dL (0.550-1.02) Glomerular Filtration Rate Calc 94 mL/min (>90) BUN/Creatinine Ratio 27.1 (10.0-20.0) Serum Glucose 88 mg/dL (74-106) Calcium Level 9.9 mg/dL (8.7-10.4) Total Bilirubin 1.0 mg/dL (0.2-1.0) Aspartate Amino Transferase (AST) 44 U/L (13-40) Alanine Aminotransferase (ALT) 49 U/L (7-40) Alkaline Phosphatase 104 U/L (46-116) Total Protein 6.3 g/dL (5.7-8.2) Albumin 3.9 g/dL (3.2-4.8) Magnesium Level 1.9 mg/dL (1.6-2.6) Cortisol AM Sample 24.18 ug/dL (5.27-22.45) Influenza Type A Antigen Negative (Negative) Influenza Type B Antigen Negative (Negative) SARS-CoV-2 Antigen (Rapid) Negative (NEGATIVE) Prothrombin Time 11.0 sec (9.3-11.8) Prothrombin Time INR 1.04 (0.9-1.15) Activated Partial Thromboplast Time 24.9 SEC (24.5-34.5) Direct Bilirubin 0.5 mg/dL (<0.3) Vitamin B12 Level 369 pg/mL (211-911) Vitamin D 25-Hydroxy 53.6 ng/mL (30.0-100) Folic Acid 20.85 ng/mL (>5.38) Thyroid Stimulating Hormone (TSH) 4.62 uIU/mL (0.55-4.78) Test 02/17/25 19:21 02/17/25 18:20 Troponin I High Sensitivity 3 ng/L (</=34) Urine Color Dark-yellow (Yellow) Urine Clarity Turbid (Clear) Urine pH 5.5 (5.0-9.0) Urine Specific [place] 1.030 (1.001-1.035) Urine Protein Trace (Negative) Urine Ketones 1+ (Negative) Urine Blood Negative /uL (Negative) Urine Nitrite Negative (Negative) Urine Bilirubin Negative (Negative) Urine Urobilinogen 2 mg/dL (Negative) Urine Leukocyte Esterase Negative /uL (Negative) Urine RBC 2 /hpf (0 - 4) Urine Microscopic WBC 4 /HPF (0-5) Urine Squamous Epithelial Cells Mod /hpf (<5) Urine Bacteria None seen /hpf (None Seen) Urine Hyaline Casts Mod /lpf (0 - 2) Urine Mucus Few (None Seen) Urine Glucose Normal mg/dL (Normal) Urine Opiates Screen Pos (NEGATIVE) Urine Fentanyl Screen Neg (NEGATIVE) Urine Barbiturates Screen Neg (NEGATIVE) Urine Phencyclidine Screen Neg (NEGATIVE) Urine Amphetamines Screen Neg (NEGATIVE) Urine Benzodiazepines Screen Neg (NEGATIVE) Urine Cocaine Screen Neg (NEGATIVE) Urine Cannabinoids Screen Neg (NEGATIVE) Other Laboratory Tests 02/24/25 07:18 Brief Hx & Hospital Course: Hospital course-patient is 75 years old female with past medical history of Hypertension, dyslipidemia, prediabetic, anxiety, frequent UTIs, CVA with dementia, hypothyroidism, frequent UTIs, sick sinus syndrome status post permanent pacemaker placement, CHF was brought in by EMS due to syncopal attack. Wider gathered information after talking to patient's daughter Karishma, and reviewing chart. As per patient's daughter patient went for grocery store when she was feeling unusual, feeling tired, told daughter that I am feeling weird and daughter noticed she was having flush in the face and arms and body. Following that patient passed out for less than 1 minute. Patient's daughter hold 104 sit on a chair, no history of fall or trauma to the head. As per daughter upon regaining consciousness with the patient was little bit confused had nausea and vomiting once with bile content, no blood. As per daughter patient has a lives appetite in last couple of days where she was eating or drinking less. Denied any fever, acute joint pain or swelling. CTA negative for acute intracranial pathology, CT abdomen revealed diverticulosis with a diverticulitis, no acute pyelonephritis. Urinalysis negative for UTI. Patient tested negative for COVID and influenza type A and B. Echo 2D revealed LVEF 50-60%, RV function normal. Patient was seen by oil laboratory analyst, recommendation reviewed and appreciated. Ordered nystatin apply locally for vulvovaginitis. Hospital course-patient is 75 years old female with past medical history of Hypertension, dyslipidemia, prediabetic, anxiety, frequent UTIs, CVA with dementia, hypothyroidism, frequent UTIs, sick sinus syndrome status post permanent pacemaker placement, CHF was brought in by EMS due to syncopal attack. Wider gathered information after talking to patient's daughter Karishma, and reviewing chart. As per patient's daughter patient went for grocery store when she was feeling unusual, feeling tired, told daughter that I am feeling weird and daughter noticed she was having flush in the face and arms and body. Following that patient passed out for less than 1 minute. Patient's daughter hold 104 sit on a chair, no history of fall or trauma to the head. As per daughter upon regaining consciousness with the patient was little bit confused had nausea and vomiting once with bile content, no blood. As per daughter patient has a lives appetite in last couple of days where she was eating or drinking less. Denied any fever, acute joint pain or swelling. CTA negative for acute intracranial pathology, CT abdomen revealed diverticulosis with a diverticulitis, no acute pyelonephritis. Urinalysis negative for UTI. Patient tested negative for COVID and influenza type A and B. Echo 2D revealed LVEF 50-60%, RV function normal. Patient was positive for orthostatic hypotension. Patient was seen by oil laboratory analyst, recommendation reviewed and appreciated. Ordered nystatin apply locally for vulvovaginitis. patient was treated conservatively and symptoms improved. Patient is being discharged home with the recommendation to resume home medication. Patient was discharged with Zofran q.6h PRN for nausea and midodrine 10 mg p.o. t.i.d. for 14 days. Patient was hemodynamically stable on discharge. Assessment #Syncope likely due to orthostatic hypotension, autonomic neuropathy, vasovagal syncope, dehydration -ruled out acute cardiac arrhythmia, ruled out acute CVA # vaginal pain likely due to atrophic vulvovaginitis #Hypertension #dyslipidemia, # prediabetic, #anxiety, #CVA with dementia,. # hypothyroidism #frequent UTIs, #sick sinus syndrome status post permanent pacemaker placement, #CHF Plan Zofran 4 mg p.o. q.6h PRN Nystatin ointment applied locally as prescribed Continue midodrine 10 mg p.o. t.i.d. for 5 days Please resume home medications except medication for hypertension Avoid dehydration and nephrotoxic drugs Please follow up with the primary care physician in 1 week Please follow up with the oil laboratory analyst for further evaluation and care of vulvovaginitis Please follow up with your business planning director in 1-2 weeks Please use Rufus socks during ambulation Operations or Procedures [place] [address] Ph: [phone] DIAGNOSTIC IMAGING Diagnostic Imaging Report : [id number] Signed PATIENT: FABY FRANCIST: [id number] UNIT: [id number] : 1950 LOC: OVERFLOW ROOM / BED: [address] [place] [address] AGE / SEX: 75 / F ADM STATUS: ADM IN SERVICE 1255 ORDERING PHYSICIAN: ESTEBAN BOATENG PROCEDURE(s): CXRP - CHEST PORTABLE REASON: ?PNA ORDER NUMBER(s): [id number], ACCESSION NUMBER(s): [id number] EXAM: XY CHEST PORTABLE HISTORY: PNA COMPARISON: XY CHEST PORTABLE on DOS: 02/01/25, CHEST XRAY 1 VIEW on DOS: 06/23/21, CHEST PORTABLE on DOS: 06/22/21 TECHNIQUE: Portable AP view of the chest was performed. FINDINGS: No pneumothorax, consolidative infiltrates, or pulmonary edema. The heart is not enlarged. Left chest pacemaker is re-identified. IMPRESSION: No acute intrathoracic process. 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 This CT exam was performed using one or more of the following dose reduction techniques: automated exposure control, adjustment of the mA and/or kV according to patient size, and/or use of iterative reconstruction technique. CONTRAST: RADIATION DOSE: CTDIvol = 5.07 mGy, DLP = 243.96 mGy-cm COMPARISON: CT CT AB PEL WITH IV CON ONLY on DOS: 01/30/25 FINDINGS: LUNG BASES: Unremarkable. No mass. No consolidation. ABDOMEN: LIVER: Fatty infiltration of the liver. GALLBLADDER AND BILE DUCTS: Gallbladder is surgically absent. No ductal dilation. PANCREAS: Unremarkable. No mass. No ductal dilation. SPLEEN: Unremarkable. No splenomegaly. ADRENALS: Unremarkable. No mass. KIDNEYS AND URETERS: Renal cysts. No hydronephrosis. STOMACH AND BOWEL: Colonic diverticulosis without acute diverticulitis. No obstruction. PELVIS: APPENDIX: No findings to suggest acute appendicitis. BLADDER: Unremarkable. No mass. REPRODUCTIVE: Unremarkable as visualized. ABDOMEN and PELVIS: INTRAPERITONEAL SPACE: Unremarkable. No free air. No significant fluid collection. BONES/JOINTS: No acute fracture. No dislocation. SOFT TISSUES: Unremarkable. VASCULATURE: Unremarkable. No abdominal aortic aneurysm. LYMPH NODES: Unremarkable. No enlarged lymph nodes. OTHER FINDINGS: . . . . . . IMPRESSION: 1. No CT evidence of pyelonephritis. Clinical correlation is recommended. 2. Colonic diverticulosis without acute diverticulitis. ATED BY: ANNE ALATORRE MD DICTATED DATE/TIME: 02/18/25545 SIGNED BY: ANNE ALATORRE MD SIGNED DATE/TIME: 02/18/25545 CC: [place] [address] Ph: [phone] DIAGNOSTIC IMAGING Diagnostic Imaging Report : [id number] Signed PATIENT: JAZLYN FRANCISACCT: [id number] UNIT: [id number] : 1950 LOC: OVERFLOW ROOM / BED: [address] [place] [address] / A AGE / SEX: 75 / F ADM STATUS: ADM IN SERVICE ORDERING PHYSICIAN: DB AGUAYO PROCEDURE(s): KIDUS - KIDNEY REASON: r/o pyelo ORDER NUMBER(s): [id number], ACCESSION NUMBER(s): [id number] US KIDNEY HISTORY: r/o pyelo COMPARISON: US KIDNEY on DOS: 01/31/25 TECHNIQUE: Transverse and longitudinal grayscale and color Doppler images were obtained of the kidneys and bladder. FINDINGS: Right kidney measures 11.3 cm in length. Left kidney measures 9.9 cm length. Renal echotexture is preserved. No evidence of hydronephrosis. No solid or cystic sonographic mass. There is the appearance of multiple echogenic foci in the left kidney, no calculi noted on prior CT of 01/30/2025 Bladder: Normal IMPRESSION: 1. Echogenic foci within the left kidney of unknown etiology. No prior calculi noted on CT of 01/30/2025. 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 Consider repeat CT. ATED BY: ROSHAN BEGUM MD DICTATED DATE/TIME: 02/18/25226 SIGNED BY: ROSHAN BEGUM MD SIGNED DATE/TIME: 02/18/25226 CC: [place] [address] Ph: [phone] DIAGNOSTIC IMAGING Diagnostic Imaging Report : [id number] Signed PATIENT: JAZLYN FRANCISACCT: [id number] UNIT: [id number] : 1950 LOC: OVERFLOW ROOM / BED: 1023-ERT / A AGE / SEX: 75 / F ADM STATUS: ADM IN SERVICE ORDERING PHYSICIAN: DB AGUAYO PROCEDURE(s): CARCL - CAROTID DUPLX W COLOR DOP REASON: syncop ORDER NUMBER(s): [id number], ACCESSION NUMBER(s): [id number] Carotid Duplex Date: 02/18/2025 12:50 AM Clinical History: syncop Comparison: None Technique: Duplex Doppler evaluation of the extracranial carotid and vertebral arteries including color Doppler and spectral/pulsed waveform analysis was performed. Findings: Velocities and ratios within normal limits IMPRESSION: No hemodynamically significant stenosis noted in the right carotid system. No hemodynamically significant stenosis noted in the left carotid system. Reference: Radiology 2003; 229:340-346 ATED BY: RC CHENEY MD DICTATED DATE/TIME: 02/18/25357 SIGNED BY: RC CHENEY MD SIGNED DATE/TIME: 02/18/25357 CC: [place] [address] Ph: [phone] DIAGNOSTIC IMAGING Diagnostic Imaging Report : [id number] Signed PATIENT: JAZLYN FRANCISACCT: [id number] UNIT: [id number] : 1950 LOC: ER ROOM / BED: / AGE / SEX: 75 / F ADM STATUS: REG ER SERVICE 1521 ORDERING PHYSICIAN: JON DOMINGUEZ MD PROCEDURE(s): HWOCT - HEAD WITHOUT CONTRAST REASON: altered ORDER NUMBER(s): [id number], ACCESSION NUMBER(s): [id number] CT brain without contrast CLINICAL INDICATION: Altered mental status FINDINGS: The study was performed in a multidetector scanner. This study performed taking axial images from the skull base up to the vertex. Both brain and bone windows are photographed. Dose lowering techniques have been used including automated exposure control and adjustment of mA and/or KV according to patient size. Cortical sulcal markings are prominent. No intraparenchymal hemorrhage or edema No hydrocephalus or midline shift. No extra-axial fluid collections On bone windows no calvarial lesions. No paranasal sinus disease IMPRESSION: 1. Age-appropriate senescent changes. No acute intracranial pathology Computed Tomographic Radiation Dosimetry Report: Total CTDI vol = 50 mGy Total DLP = 797 mGy-cm All CT scans at this medical facility are performed using dose modulation techniques as appropriate to a performed exam including the following: Automated exposure control was utilized; adjustment of the MA and/or KvP according to patient size; and use of iterative reconstruction technique. ATED BY: PAGE GARIBAY MD DICTATED DATE/TIME: 02/17/251705 SIGNED BY: PAGE GARIBAY MD SIGNED DATE/TIME: 02/17/251705 CC: Condition at Discharge: Stable Final Diagnosis/Problems List #Syncope likely due to orthostatic hypotension, autonomic neuropathy, vasovagal syncope, dehydration -ruled out acute cardiac arrhythmia, ruled out acute CVA # vaginal pain likely due to atrophic vulvovaginitis #Hypertension #dyslipidemia, # prediabetic, #anxiety, #CVA with dementia,. # hypothyroidism #frequent UTIs, #sick sinus syndrome status post permanent pacemaker placement, #CHF Discharge Disposition: Home Discharge Instruct/Medications Diet: Consistent carbohydrate, Cardiac 2g Na,low cholest Activity: Light activity Follow Up/Referral: Please resume home medications except medication for hypertension Avoid dehydration and nephrotoxic drugs Please follow up with the primary care physician in 1 week Please follow up with the oil laboratory analyst for further evaluation and care of vulvovaginitis Please follow up with your business planning director in 1-2 weeks Please use Rufus socks during ambulation Medications: Zofran 4 mg p.o. q.6h PRN Nystatin ointment applied locally as prescribed Continue midodrine 10 mg p.o. t.i.d. for 5 days Please resume home medications Avoid dehydration and nephrotoxic drugs Please follow up with the primary care physician in 1 week Please follow up with the oil laboratory analyst for further evaluation and care of vulvovaginitis Please use Rufus socks during ambulation Discharge Statement: "Patient was advised to return to the ER or call 911 if any headaches, dizziness, shortness of breath, chest pain, abdominal pain, bleeding, fevers, or worsening of medical condition. Patient was counseled about treatment plan, medications, possible side effects, patientverbalized understanding. All questions were answered to the best of my ability. This discharge took greater then 30 minutes in planning, reviewing documentation, counseling the patient, and discussing with other team members." ASSESSMENT ASSESSMENT Assessment #Syncope likely due to orthostatic hypotension, vasovagalsyncope/dehydration- ruled out acute cardiac arrhythmia, ruled out acute CVA# vaginal painlikely due toatrophic vulvovaginitis #Hypertension#dyslipidemia,# prediabetic, #anxiety,#CVA with dementia,.# hypothyroidism#frequent UTIs, #sick sinus syndrome status post permanent pacemaker placement, #CHF ESTEBAN BOATENG RESIDENT Feb 24, 2025 18:40
[2025-02-24] MEDS ORDERED: TRAM-626 PO (19:14)
== END 2025-02-24 19:21 | disposition home or self-care (01) | DRG 73 ==
LOC: ER 15:12 → EDBD 15:12 → OVERFLOW 22:14 → TELE-WESTW 02-18 21:37 → WEST WING 02-20 18:40
PROVIDERS: ADMIT Student in an Organized Health Care Education/Training Program; ATTEND Student in an Organized Health Care Education/Training Program
DX: G90.9 Disorder of the autonomic nervous system, unspecified (principal); G93.41 Metabolic encephalopathy; E86.0 Dehydration; I95.1 Orthostatic hypotension; E03.9 Hypothyroidism, unspecified; E78.5 Hyperlipidemia, unspecified; F41.9 Anxiety disorder, unspecified; F03.90 Unspecified dementia, unspecified severity, without behavioral disturbance, psychotic disturbance, mood disturbance, and anxiety; R73.03 Prediabetes; I50.9 Heart failure, unspecified; I11.0 Hypertensive heart disease with heart failure; I25.10 Atherosclerotic heart disease of native coronary artery without angina pectoris; Z86.73 Personal history of transient ischemic attack (TIA), and cerebral infarction without residual deficits; Z88.8 Allergy status to other drugs, medicaments and biological substances; Z79.2 Long term (current) use of antibiotics; Z79.82 Long term (current) use of aspirin; Z90.49 Acquired absence of other specified parts of digestive tract; Z83.3 Family history of diabetes mellitus; Z82.49 Family history of ischemic heart disease and other diseases of the circulatory system; Z95.0 Presence of cardiac pacemaker; N95.2 Postmenopausal atrophic vaginitis
CPT/HCPCS: 36415; 70450; 71045; 74177; 76775; 80048; 80053; 80076; 80307; 81001; 82306; 82533; 82607; 82746; 83735; 84443; 84484; 85025; 85610; 85730; 87081; 87086; 87426; 87804; 93005; 93306; 93886; 96360; 97110; 97116; 97163; 97530; G0378; J1885; J2405; J2470